=== PATIENT | female | born 1955 | race Caucasian/White ===

== ENCOUNTER → 2016-07-24 | Outpatient (CLI) | payer BC ==
[2016-07-24 12:18] LABS: ALT 40 U/L (9-52); AST 22 U/L (14-36); Alkaline Phosphatase 95 U/L (38-126); Anion Gap 12 mmol/L; Blood Urea Nitrogen 19 mg/dL (7-17); Calcium 9.6 mg/dL (8.4-10.2); Carbon Dioxide 26 mmol/L (22-30); Chloride 105 mmol/L (98-107); Glucose 110 mg/dL (74-99); Non-African American GFR(MDRD) >60 (>60 ml/min/1.73 sqM); Potassium 4.4 mmol/L (3.5-5.1); Sodium 143 mmol/L (137-145); Total Bilirubin 0.7 mg/dL (0.2-1.3); Total Protein 7.6 g/dL (6.3-8.2)
[2016-07-24 16:12] LABS: Hemoglobin A1C 5.6 % (4.2-6.1)
== END | disposition home or self-care (01) ==
LOC: LABWHC1 10:48
PROVIDERS: ATTEND Family Medicine
DX: E11.9 Type 2 diabetes mellitus without complications (principal); I10 Essential (primary) hypertension
CPT/HCPCS: 36415; 80053; 83036

== ENCOUNTER → 2016-11-10 | Outpatient (CLI) | payer BC ==
--- NOTE | 2016-11-10 14:37 | BD ---
EXAMINATION TYPE: MG DEXA axial skeleton. DATE OF EXAM: 11/10/2016 12:58 PM COMPARISON: DEXA bone scan May 11, 2013. CLINICAL HISTORY: Asymptomatic postmenopausal female Height: 5 ft 8 1/2 in Weight: 255 FRAX RISK QUESTIONS: Alcohol (3 or more units per day): NO Family History (Parent hip fracture): NOT KNOWN Glucocorticoids (More than 3mos): NO (Ex: prednisone, prednisolone, methylprednisolone, dexamethasone, and hydrocortisone). History of Fracture in Adulthood: NO Secondary Osteoporosis: 1. Type 1 Diabetes: NO 2. Hyperthyroidism: NO 3. Menopause before 45: NO 4. Malnutrition: NO 5. Chronic liver disease: NO Rheumatoid Arthritis: NO Current Tobacco Use: NO RISK FACTORS HISTORY OF: Family History of Osteoporosis: YES Drink Alcohol: RARELY Active: YES Postmenopausal woman: TOTAL HYST AGE 48 Lost more than 2 inches in height since high school: YES MEDICATIONS: Prednisone or other steroids: How Long: Thyroid Medications: Which medication: How Long: Osteoporosis Medications: Which medication: How Long: Additional Medications: LOSARTIN/HCTZ, PRILOSEC, MIRTAZAPINE,MONTELUKAST Additional History: EXAM MEASUREMENTS: Bone mineral densitometry was performed using the [email or web address] System. Bone mineral density as measured about the Lumbar spine is: ----- L1-L4(G/cm2): 1.149 T Score Values are as follows: ----- L2: -0.1 ----- L3: 0.0 ----- L4: -0.9 ----- L1-L4: -0.3 Bone mineral density has: Decreased -6.4% since study of: 2012 Bone mineral density about the R hip (g/cm2): 0.836 Bone mineral density about the L hip (g/cm2): 0.937 T Score values are as follows: -----R Neck: -0.7 -----L Neck: -1.5 -----R Total: -0.2 -----L Total: -0.1 Bone mineral density has: Decreased -3.0% since study of: 2012 IMPRESSION: Osteopenia (T Score between -2.5 and -1 as noted by T score values at femoral neck level on the left hip. Bone density is slightly decreased or diminished from prior.There is slightly increased risk of fracture and the patient may be considered for treatment. Re-Screen 2-5 years. NOTE: T-SCORE=SD OF THE YOUNG ADULT MEAN.
--- NOTE | 2016-11-12 08:46 | MM ---
Reason for exam: screening (asymptomatic). Last mammogram was performed 1 year and 6 months ago. History: Patient is postmenopausal. Excisional biopsy of the left breast, April 18, 2007. Took estrogen for 3 years beginning at age 43. Took progesterone for 3 years beginning at age 43. Physical Findings: A clinical breast exam by your physician is recommended on an annual basis and results should be correlated with mammographic findings. MG Screening Mammo w CAD Bilateral CC and MLO view(s) were taken. Prior study comparison: May 16, 2015, bilateral MG screening mammo w CAD. May 13, 2014, bilateral MG screening mammo w CAD. May 11, 2013, bilateral digital screening mammo w/CAD. May 09, 2012, bilateral digital screening mammo w/CAD. There are scattered fibroglandular densities. Stable grouped calcifications medial right breast. Increasing grouped calcifications central posterior left breast. ASSESSMENT: Incomplete: need additional imaging evaluation, BI-RAD 0 RECOMMENDATION: Special view mammogram of the left breast. [facility] will attempt to contact patient to return for supplemental views.
== END | disposition home or self-care (01) ==
LOC: RADMAMWWP 12:55
PROVIDERS: ATTEND Family Medicine
DX: Z12.31 Encounter for screening mammogram for malignant neoplasm of breast (principal); M85.852 Other specified disorders of bone density and structure, left thigh; Z78.0 Asymptomatic menopausal state
CPT/HCPCS: 77080; G0202

== ENCOUNTER → 2016-11-24 | Outpatient (CLI) | payer BC ==
--- NOTE | 2016-11-25 08:12 | MM ---
Reason for exam: additional evaluation requested from abnormal screening. Last mammogram was performed less than 1 month ago. History: Patient is postmenopausal. Excisional biopsy of the left breast, April 18, 2007. Took estrogen for 3 years beginning at age 43. Took progesterone for 3 years beginning at age 43. Physical Findings: Nurse did not find any significant physical abnormalities on exam. MG 3D Work Up W/Cad LT LM, CC with magnification, and LM with magnification view(s) were taken of the left breast. Prior study comparison: November 10, 2016, bilateral MG screening mammo w CAD. May 16, 2015, bilateral MG screening mammo w CAD. May 13, 2014, bilateral MG screening mammo w CAD. Finding: There are intermediate concern, suspicious grouped calcifications in the lower outer quadrant, middle position of the left breast, persists on additional views. These results were verbally communicated with the patient and result sheet given to the patient on 11/24/16. ASSESSMENT: Suspicious, BI-RAD 4 RECOMMENDATION: Stereotactic core biopsy of the left breast. Called Dr Damian with mammographic findings and has scheduled an appointment for the patient for 12/01/16 at 9:[address] Zacarias. PRELIMINARY REPORT CALLED AND FAXED TO DR. ZACARIAS ON 11/25/16 AT 300/TMP.
== END | disposition home or self-care (01) ==
LOC: RADMAMWWP 14:14
PROVIDERS: ATTEND Family Medicine
DX: R92.8 Other abnormal and inconclusive findings on diagnostic imaging of breast (principal)
CPT/HCPCS: G0206; G0279

== ENCOUNTER → 2016-12-09 | Day surgery (SDC) | payer BC ==
[2016-12-09 13:36] VITALS: RESP 12
[2016-12-09 14:38] VITALS: BP 132/82; PULSE 82; TEMP 98.9
--- NOTE | 2016-12-09 15:07 | MM ---
EXAMINATION TYPE: MG stereo VAD BX LT DATE OF EXAM: 12/09/2016 COMPARISON: NONE CLINICAL HISTORY: Left breast calcifications TECHNIQUE: Stereotactic guided core biopsy of left breast. FINDINGS: The procedure of stereotactic guided core biopsy was explained to the patient. Benefits, alternatives, and risks were discussed. An informed consent was then obtained. The shortness pathway for biopsy was chosen. Shortness pathway was chosen. Radiologist performed the localization and the procedure. A vacuum assisted biopsy gun was used to obtain multiple core samples. The patient tolerated the procedure well without any immediate complication. The patient was kept in the radiology department for short stay after the procedure and then discharged home in stable condition. Targeted calcifications are identified in specimen mammogram. Post biopsy mammogram shows the clip to appear in satisfactory position relative to the targeted area of concern on the preprocedure images. IMPRESSION: SUCCESSFUL, UNCOMPLICATED STEREOTACTIC GUIDED CORE BIOPSY OF AREA OF CONCERN IN THE left BREAST, FULL PATHOLOGY RESULTS TO FOLLOW. Pathology Results: High Risk BREAST, LEFT, STEREOTACTIC CORE BIOPSY: SMALL INTRADUCTAL PAPILLOMA AND DUCT ECTASIA. FIBROCYSTIC CHANGE (STROMAL FIBROSIS, CYST FORMATION, ADENOSIS AND DUCT HYPERPLASIA WITH CALCIFICATIONS). BENIGN SKIN. Recommendation Surgical consult of the left breast. JACOBYD
== END ==
LOC: RADMAMWWP 13:08
PROVIDERS: ATTEND Surgery
DX: D24.2 Benign neoplasm of left breast (principal); N60.42 Mammary duct ectasia of left breast; N60.32 Fibrosclerosis of left breast; N60.02 Solitary cyst of left breast; N60.22 Fibroadenosis of left breast; R92.8 Other abnormal and inconclusive findings on diagnostic imaging of breast; N60.92 Unspecified benign mammary dysplasia of left breast; N64.89 Other specified disorders of breast; Z88.1 Allergy status to other antibiotic agents; Z88.5 Allergy status to narcotic agent
CPT/HCPCS: 88305; 19081; A4648

== ENCOUNTER → 2017-02-19 | Outpatient (CLI) | payer BC ==
[2017-02-19 10:32] LABS: Basophils # (A) 0.1 k/uL (0-0.2); Basophils % (A) 1 %; CH 31.5; CHCM 34.5; Eosinophils # (A) 0.2 k/uL (0-0.7); Eosinophils % (A) 3 %; HCT 43.3 % (34.0-46.0); HDW 3.03; HGB 14.9 gm/dL (11.4-16.0); Luc # (Auto) 0.19; Luc % (Auto) 3; Lymphocytes # (A) 2.2 k/uL (1.0-4.8); Lymphocytes % (A) 31 %; MCH 31.6 pg (25.0-35.0); MCHC 34.5 g/dL (31.0-37.0); MCV 91.6 fL (80.0-100.0); Mean Platelet Volume 7.6; Monocytes # (A) 0.3 k/uL (0-1.0); Monocytes % (A) 4 %; Neutrophils # (A) 4.2 k/uL (1.3-7.7); Neutrophils % (A) 59 %; RBC 4.72 m/uL (3.80-5.40); RDW 13.9 % (11.5-15.5); WBC 7.1 k/uL (3.8-10.6); WBC (Perox) 7.01
[2017-02-19 10:43] LABS: ALT 34 U/L (9-52); AST 22 U/L (14-36); Alkaline Phosphatase 93 U/L (38-126); Anion Gap 9 mmol/L; Blood Urea Nitrogen 18 mg/dL (7-17); Calcium 9.5 mg/dL (8.4-10.2); Carbon Dioxide 26 mmol/L (22-30); Chloride 107 mmol/L (98-107); Cholesterol 181 mg/dL (<200); Glucose 115 mg/dL (74-99); HDL Cholesterol 57 mg/dL (40-60); Non-African American GFR(MDRD) >60 (>60 ml/min/1.73 sqM); Sodium 142 mmol/L (137-145); Total Bilirubin 0.5 mg/dL (0.2-1.3); Total Protein 7.1 g/dL (6.3-8.2)
[2017-02-19 14:26] LABS: Hemoglobin A1C 5.9 % (4.2-6.1)
[2017-02-19 17:21] LABS: Urine Creatinine 230.9 mg/dL
== END | disposition home or self-care (01) ==
LOC: LABWHC1 09:26
PROVIDERS: ATTEND Family Medicine
DX: Z00.00 Encounter for general adult medical examination without abnormal findings (principal); E11.9 Type 2 diabetes mellitus without complications; I10 Essential (primary) hypertension; Z13.220 Encounter for screening for lipoid disorders
CPT/HCPCS: 36415; 80053; 80061; 82043; 82570; 83036; 85025

== ENCOUNTER → 2017-03-23 | Outpatient (CLI) | payer BC ==
[2017-03-23 18:21] LABS: Blood Urea Nitrogen 16 mg/dL (7-17); Non-African American GFR(MDRD) >60 (>60 ml/min/1.73 sqM)
--- NOTE | 2017-03-23 19:28 | CT ---
EXAMINATION TYPE: CT abdomen pelvis w con DATE OF EXAM: 03/23/2017 COMPARISON: NONE HISTORY: Abdominal pain. CT DLP: 1556.6 mGycm Automated exposure control for dose reduction was used. TECHNIQUE: Helical acquisition of images was performed from the lung bases through the pelvis. CONTRAST: Performed with Oral Contrast and with IV Contrast, patient injected with 100 mL of Omnipaque 300. FINDINGS: Lung bases are clear. There is no pleural effusion. There are clips from cholecystectomy. Liver spleen pancreas appear normal. Bile ducts are not dilated . There is no adrenal mass. Kidneys show satisfactory contrast opacification. There is no hydronephrosi s. There is no retroperitoneal adenopathy. There is no ascites. Bladder distends smoothly. There is n o sign of a pelvic mass. I see no intestinal wall thickening. There are no dilated loops. Appendix ap pears normal. I see no bony destructive process. There is spurring in the lumbar spine. IMPRESSION: NEGATIVE CT SCAN OF THE ABDOMEN AND PELVIS. I DO NOT SEE A CAUSE FOR ABDOMINAL PAIN.
== END | disposition home or self-care (01) ==
LOC: RADCTMAIN 17:37
PROVIDERS: ATTEND Surgery
DX: R10.9 Unspecified abdominal pain (principal)
CPT/HCPCS: 82565; 84520; 74177; 36415; Q9967

== ENCOUNTER → 2017-08-27 | Outpatient (CLI) | payer BC ==
[2017-08-27 10:47] LABS: ALT 31 U/L (9-52); AST 23 U/L (14-36); Alkaline Phosphatase 93 U/L (38-126); Anion Gap 11 mmol/L; Blood Urea Nitrogen 20 mg/dL (7-17); Calcium 9.6 mg/dL (8.4-10.2); Carbon Dioxide 26 mmol/L (22-30); Chloride 106 mmol/L (98-107); Glucose 123 mg/dL (74-99); Potassium 4.3 mmol/L (3.5-5.1); Sodium 143 mmol/L (137-145); Total Bilirubin 0.4 mg/dL (0.2-1.3); Total Protein 6.9 g/dL (6.3-8.2)
[2017-08-27 20:07] LABS: Hemoglobin A1C 5.9 % (4.0-6.0)
== END | disposition home or self-care (01) ==
LOC: LABWHC1 09:31
PROVIDERS: ATTEND Family Medicine
DX: E11.9 Type 2 diabetes mellitus without complications (principal); I10 Essential (primary) hypertension
CPT/HCPCS: 36415; 80053; 83036

== ENCOUNTER → 2017-11-15 | Outpatient (CLI) | payer BC ==
--- NOTE | 2017-11-16 11:40 | MM ---
Reason for exam: screening (asymptomatic). Last mammogram was performed 1 year ago. History: Patient is postmenopausal and has history of high-risk lesion on a previous biopsy at age 61. High risk MG stereo VAD BX LT of the left breast, December 09, 2016. Excisional biopsy of the left breast, April 18, 2007. Took estrogen for 3 years beginning at age 43. Took progesterone for 3 years beginning at age 43. Physical Findings: A clinical breast exam by your physician is recommended on an annual basis and results should be correlated with mammographic findings. MG Screening Mammo w CAD Bilateral CC and MLO view(s) were taken. Prior study comparison: November 24, 2016, left breast MG 3d work up w/cad LT. November 10, 2016, bilateral MG screening mammo w CAD. The breast tissue is heterogeneously dense. This may lower the sensitivity of mammography. Stable benign calcifications. There is no discrete abnormality. No significant changes when compared with prior studies. ASSESSMENT: Benign, BI-RAD 2 RECOMMENDATION: Routine screening mammogram of both breasts in 1 year.
== END | disposition home or self-care (01) ==
LOC: RADMAMWWP 13:20
PROVIDERS: ATTEND Family Medicine
DX: Z12.31 Encounter for screening mammogram for malignant neoplasm of breast (principal)
CPT/HCPCS: 77067

== ENCOUNTER → 2018-02-25 | Outpatient (CLI) | payer BC ==
[2018-02-25 10:29] LABS: Basophils # (A) 0.1 k/uL (0-0.2); Basophils % (A) 1 %; Eosinophils # (A) 0.1 k/uL (0-0.7); Eosinophils % (A) 1 %; HCT 46.4 % (34.0-46.0); HGB 15.2 gm/dL (11.4-16.0); Lymphocytes # (A) 2.2 k/uL (1.0-4.8); Lymphocytes % (A) 29 %; MCH 30.9 pg (25.0-35.0); MCHC 32.7 g/dL (31.0-37.0); MCV 94.2 fL (80.0-100.0); Mean Platelet Volume 7.7; Monocytes # (A) 0.4 k/uL (0-1.0); Monocytes % (A) 5 %; Neutrophils # (A) 4.7 k/uL (1.3-7.7); Neutrophils % (A) 63 %; Platelet Count 201 k/uL (150-450); RBC 4.92 m/uL (3.80-5.40); RDW 14.1 % (11.5-15.5); WBC 7.4 k/uL (3.8-10.6)
[2018-02-25 10:35] LABS: Albumin 4.3 g/dL (3.5-5.0); Calcium 9.9 mg/dL (8.4-10.2); Potassium 4.5 mmol/L (3.5-5.1); Total Bilirubin 0.6 mg/dL (0.2-1.3); Total Protein 7.4 g/dL (6.3-8.2)
[2018-02-25 21:01] LABS: Hemoglobin A1C 5.8 % (4.0-6.0)
== END | disposition home or self-care (01) ==
LOC: LABWHC1 09:39
PROVIDERS: ATTEND Family Medicine
DX: I10 Essential (primary) hypertension (principal); E11.9 Type 2 diabetes mellitus without complications
CPT/HCPCS: 36415; 80053; 80061; 82043; 82570; 83036; 85025

== ENCOUNTER → 2018-06-13 | Outpatient (CLI) | payer BC ==
--- NOTE | 2018-06-13 14:34 | US ---
EXAMINATION TYPE: US venous doppler duplex LE DATE OF EXAM: 06/13/2018 2:05 PM COMPARISON: LOWER EXTREMITY VENOUS INSUFFICIENCY SIDE PERFORMED: Bilateral 1) Color flow is present and patency is documented in the following vessels. No DVT or SVT is noted . EIV Common Femoral Vein Deep Femoral Vein Femoral Vein Popliteal Vein Proximal Calf Veins Greater Saph Vein Upper Small Saph Vein 2) There is venous reflux noted at the following venous levels: None IMPRESSION: No sonographic evidence of deep venous thrombosis, superficial venous thrombosis or sonog raphic sequela of venous insufficiency.
== END | disposition home or self-care (01) ==
LOC: RADUSWWP 12:46
PROVIDERS: ATTEND Family Medicine
DX: I73.9 Peripheral vascular disease, unspecified (principal); I99.8 Other disorder of circulatory system
CPT/HCPCS: 93923; 93970

== ENCOUNTER → 2018-07-17 | Outpatient (CLI) | payer BC ==
--- NOTE | 2018-07-17 13:56 | XR ---
EXAM TYPE: LUMBAR SPINE X RAY SERIES COMPARISON: NONE HISTORY: Lt leg sciatica TECHNIQUE: 4 views are submitted. FINDINGS: Alignment is anatomic. The pedicles are intact. The transverse processes are intact. There is no s pondylolysis or spondylolisthesis. Surgical clips in the right upper quadrant. Diffuse osteopenia. H ypertrophic changes of the spine are noted and there is degenerative disc disease L4-5 and L5-S1 with facet arthropathy. Vascular calcifications are noted. No compression deformities. IMPRESSION: 1. Multilevel mild degenerative disc disease. Correlate with MRI as clinically warranted.
== END | disposition home or self-care (01) ==
LOC: RADXRYALE 13:29
PROVIDERS: ATTEND Family Medicine
DX: M51.36 Other intervertebral disc degeneration, lumbar region (principal); M51.37 Other intervertebral disc degeneration, lumbosacral region
CPT/HCPCS: 72110

== ENCOUNTER → 2018-08-30 | Outpatient (CLI) | payer BC ==
[2018-08-30 17:46] LABS: Albumin 4.6 g/dL (3.80-4.90); Albumin/Globulin Ratio 1.84 (1.60-3.17); Anion Gap 10.6 mmol/L (4.00-12.00); Calcium 9.9 mg/dL (8.7-10.3); Carbon Dioxide 26.4 mmol/L (21.6-31.8); Globulin 2.5 g/dL (1.6-3.3); LDL Cholesterol,Calculated 119.4 mg/dL (0.0-131.0); Potassium 4.4 mmol/L (3.5-5.5); Total Bilirubin 0.5 mg/dL (0.3-1.2); Total Protein 7.1 g/dL (6.2-8.2); VLDL Calculation 19.6 mg/dL (5.00-40.00)
[2018-08-30 20:25] LABS: Hemoglobin A1C 5.8 % (4.0-6.0)
== END ==
LOC: LABWHC1 10:30
PROVIDERS: ATTEND Family Medicine
DX: E11.9 Type 2 diabetes mellitus without complications (principal); I10 Essential (primary) hypertension
CPT/HCPCS: 36415; 80053; 80061; 83036

== ENCOUNTER → 2018-12-01 | Outpatient (CLI) | payer BC ==
--- NOTE | 2018-12-05 11:23 | MM ---
Reason for exam: screening (asymptomatic). Last mammogram was performed 1 year and 1 month ago. History: Patient is postmenopausal and has history of high-risk lesion on a previous biopsy at age 61. High risk MG stereo VAD BX LT of the left breast, December 09, 2016. Excisional biopsy of the left breast, April 18, 2007. Took estrogen for 3 years beginning at age 43. Took progesterone for 3 years beginning at age 43. Physical Findings: A clinical breast exam by your physician is recommended on an annual basis and results should be correlated with mammographic findings. MG Screening Mammo w CAD Bilateral CC and MLO view(s) were taken. Prior study comparison: November 15, 2017, bilateral MG screening mammo w CAD. November 24, 2016, left breast MG 3d work up w/cad LT. There are scattered fibroglandular densities. Nodularity adjacent to the 3 o'clock left breast microclip appears more defined but has an appearance similar to prior exams on the XCCL view. 6 month follow up recommended. ASSESSMENT: Probably benign, BI-RAD 3 RECOMMENDATION: Follow-up diagnostic mammogram of the left breast in 6 months.
== END | disposition home or self-care (01) ==
LOC: RADMAMWWP 13:47
PROVIDERS: ATTEND Family Medicine
DX: Z12.31 Encounter for screening mammogram for malignant neoplasm of breast (principal)
CPT/HCPCS: 77067

== ENCOUNTER → 2019-02-22 | Outpatient (CLI) | payer BC ==
[2019-02-22 12:19] LABS: Basophils # (A) 0.1 k/uL (0-0.2); Basophils % (A) 1 %; Eosinophils # (A) 0.1 k/uL (0-0.7); Eosinophils % (A) 2 %; HCT 45.4 % (34.0-46.0); HGB 15.1 gm/dL (11.4-16.0); Lymphocytes # (A) 1.9 k/uL (1.0-4.8); Lymphocytes % (A) 24 %; MCH 30.7 pg (25.0-35.0); MCHC 33.1 g/dL (31.0-37.0); MCV 92.7 fL (80.0-100.0); Mean Platelet Volume 8.5; Monocytes # (A) 0.4 k/uL (0-1.0); Monocytes % (A) 5 %; Neutrophils # (A) 5.2 k/uL (1.3-7.7); Neutrophils % (A) 67 %; Platelet Count 222 k/uL (150-450); RDW 13.9 % (11.5-15.5); WBC 7.7 k/uL (3.8-10.6)
[2019-02-22 17:07] LABS: African American GFR (CKD) 78.3 (60.0-200.0); Albumin 4.4 g/dL (3.80-4.90); Anion Gap 8.6 mmol/L (4.00-12.00); Calcium 9.6 mg/dL (8.7-10.3); Carbon Dioxide 25.4 mmol/L (21.6-31.8); Globulin 2.2 g/dL (1.6-3.3); Potassium 4.3 mmol/L (3.5-5.5); Total Bilirubin 0.5 mg/dL (0.3-1.2); Total Protein 6.6 g/dL (6.2-8.2)
[2019-02-22 20:39] LABS: Hemoglobin A1C 5.7 % (4.0-6.0)
== END | disposition home or self-care (01) ==
LOC: LABWHC1 10:30
PROVIDERS: ATTEND Family Medicine
DX: I10 Essential (primary) hypertension (principal); E11.9 Type 2 diabetes mellitus without complications
CPT/HCPCS: 36415; 80053; 82043; 82570; 83036; 85025

== ENCOUNTER 2019-05-17 13:06 | Emergency (ER) | payer BC ==
[2019-05-17 13:10] VITALS: TEMP 98.9
[2019-05-17] MEDS ORDERED: SODIUM CHLORIDE 0.9% 1,000 ML IV STA ×2 (13:43→16:07)
[2019-05-17] MEDS ORDERED: KETOROLAC 30 MG/ML 1 ML VIAL IVP STA (13:43)
[2019-05-17] MEDS ORDERED: ONDANSETRON 4 MG/2 ML VIAL IVP STA (13:43)
[2019-05-17 14:15] LABS: Basophils # (A) 0.1 k/uL (0-0.2); Basophils % (A) 1 %; Eosinophils # (A) 0.1 k/uL (0-0.7); Eosinophils % (A) 1 %; HCT 47.6 % (34.0-46.0); HGB 16.8 gm/dL (11.4-16.0); Lymphocytes # (A) 1.9 k/uL (1.0-4.8); Lymphocytes % (A) 17 %; MCH 32.3 pg (25.0-35.0); MCHC 35.3 g/dL (31.0-37.0); MCV 91.5 fL (80.0-100.0); Mean Platelet Volume 7.9; Monocytes # (A) 0.5 k/uL (0-1.0); Monocytes % (A) 5 %; Neutrophils # (A) 8.3 k/uL (1.3-7.7); Neutrophils % (A) 75 %; Platelet Count 222 k/uL (150-450); RDW 13.4 % (11.5-15.5); WBC 11.1 k/uL (3.8-10.6)
--- NOTE | 2019-05-17 14:17 | ED ---
General Adult HPI - General Chief complaint: Abdominal Pain Stated complaint: NVD, elevated blood sugar Time Seen by Provider: 05/17/19 13:19 Source: patient, RN notes reviewed Mode of arrival: ambulatory Limitations: no limitations - History of Present Illness Initial comments: 64-year-old female with a past medical history of asthma, [id number] diabetes mellitus, hypertension, cholecystectomy, hysterectomy presents to the emergency department for right abdominal pain. Patient has had this pain for the past 7 weeks that it worsened in the past 2 weeks. She did see her primary care provider but cannot have a CT scheduled until 2 days from now. States she cannot tolerate the pain any longer. States she has been nauseous but has not been vomiting. Admits to significant diarrhea for the past several weeks as well. Denies fevers but does admit to chills.Patient has no other complaints at this time including shortness of breath, chest pain, vomiting, headache, or visual changes. - Related Data Home Medications Medication Instructions Recorded Confirmed Losartan/Hydrochlorothiazide 1 tab PO QAM 09/11/15 12/09/16 [Losartan-Hctz 50-12.5 mg Tab] Mirtazapine 30 mg PO HS 09/11/15 12/09/16 RX: Montelukast [Singulair] 10 mg PO HS 09/11/15 12/09/16 Omeprazole [PriLOSEC] 1 tab PO DAILY PRN 12/06/16 12/09/16 Previous Rx's Medication Instructions Recorded Ciprofloxacin HCl [Cipro] 500 mg PO BID 28 Days #14 tab 05/17/19 Allergies Allergy/AdvReac Type Severity Reaction Status Date / Time adhesive Allergy ITCHING/RED Verified 05/17/19 13:08 DNESS cephalexin monohydrate Allergy Nausea & Verified 05/17/19 13:08 [From Keflex] Vomiting erythromycin base Allergy "I Verified 05/17/19 13:08 COULDN'T BREATHE" morphine Allergy Nausea & Verified 05/17/19 13:08 Vomiting nystatin Allergy Nausea & Verified 05/17/19 13:08 Vomiting sulfamethoxazole Allergy LIGHTHEADEDNESS, Verified 05/17/19 13:08 [From Septra] VOMITING trimethoprim [From Febra] Allergy LIGHTHEADEDNESS, Verified 05/17/19 13:08 VOMITING codeine AdvReac Nausea & Verified 11/21/19 13:08 Vomiting Review of Systems ROS Statement: Those systems with pertinent positive or pertinent negative responses have been documented in the HPI. ROS Other: All systems not noted in ROS Statement are negative. 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 History of Any Multi-Drug Resistant Organisms: None Reported Past Surgical History: Section, Cholecystectomy, Hernia Repair, Hysterectomy, Tonsillectomy Additional Past Surgical History / Comment(s): 7 EYE SX R/T TO MUSCLES, ELFEGO CATARACT Past Anesthesia/Blood Transfusion Reactions: No Reported Reaction Past Psychological History: Depression Smoking Status: Never smoker Past Alcohol Use History: Occasional Past Drug Use History: None Reported - Past Family History Mother Family Medical History: Unable to Obtain Additional Family Medical History / Comment(s): PATIENT ADOPTED General Exam Limitations: no limitations General appearance: alert, in no apparent distress Head exam: Present: atraumatic, normocephalic, normal inspection Eye exam: Present: normal appearance, PERRL, EOMI. Absent: scleral icterus, conjunctival injection, periorbital swelling ENT exam: Present: normal exam, mucous membranes moist Neck exam: Present: normal inspection, full ROM. Absent: tenderness, meningismus, lymphadenopathy Respiratory exam: Present: normal lung sounds bilaterally. Absent: respiratory distress, wheezes, rales, rhonchi, stridor Cardiovascular Exam: Present: regular rate, normal rhythm, normal heart sounds. Absent: systolic murmur, diastolic murmur, rubs, gallop, clicks GI/Abdominal exam: Present: soft, tenderness (Tenderness noted right lower quadrant. Right upper quadrant and epigastric tenderness as well.), normal bowel sounds. Absent: distended, guarding, rebound, rigid Neurological exam: Present: alert Course Vital Signs 05/17/19 05/17/19 13:08 14:35 Temperature 98.9 F Pulse Rate 113 H 88 Respiratory 18 18 Rate Blood Pressure 147/97 O2 Sat by Pulse 98 97 Oximetry Medical Decision Making - Medical Decision Making HPI physical exam as documented. Patient initially tachycardic but that was likely secondary to anxiety as this did improve her her stay. CBC shows mild with a ptosis of 11. CMP generally unremarkable. There is some evidence of dehydration. Patient does have a lactic acid of 2.1 however this is likely secondary to dehydration rather than severe sepsis. Urinalysis does show greater than 182 white blood cells with a positive nitrite. Patient was given 2 g of Rocephin and [address] abdomen and pelvis was obtained to rule out septic stone. This shows hepatic steatosis, splenomegaly, diverticulosis. Patient symptoms are likely secondary to pyelonephritis. Patient is requesting discharge home. I discussed this case with Dr. Levy and we do agree we can discharge patient on Cipro. She will follow up with primary care in 1-2 days and return here if she has any worsening symptoms. - Lab Data Result diagrams: 05/17/19 13:22 05/17/19 13:22 Lab Results 05/17/19 05/17/19 05/17/19 Range/Units 13: 13: 13:22 WBC 11.1 H (3.8-10.6) k/uL RBC 5.20 (3.80-5.40) m/uL Hgb 16.8 H (11.4-16.0) gm/dL Hct 47.6 H (34.0-46.0) % MCV 91.5 (80.0-100.0) fL MCH 32.3 (25.0-35.0) pg MCHC 35.3 (31.0-37.0) g/dL RDW 13.4 (11.5-15.5) % Plt Count 222 (150-450) k/uL Neutrophils % 75 % Lymphocytes % 17 % Monocytes % 5 % Eosinophils % 1 % Basophils % 1 % Neutrophils # 8.3 H (1.3-7.7) k/uL Lymphocytes # 1.9 (1.0-4.8) k/uL Monocytes # 0.5 (0-1.0) k/uL Eosinophils # 0.1 (0-0.7) k/uL Basophils # 0.1 (0-0.2) k/uL Sodium 141 (137-145) mmol/L Potassium 4.1 (3.5-5.1) mmol/L Chloride 103 (98-107) mmol/L Carbon Dioxide 23 (22-30) mmol/L Anion Gap 15 mmol/L BUN 20 H (7-17) mg/dL Creatinine 0.95 (0.52-1.04) mg/dL Est GFR (CKD-EPI)AfAm 74 (>60 ml/min/1.73 sqM) Est GFR (CKD-EPI)NonAf 64 (>60 ml/min/1.73 sqM) Glucose 136 H (74-99) mg/dL Plasma Lactic Acid Clarke 2.1 H* (0.7-2.0) mmol/L Calcium 10.2 (8.4-10.2) mg/dL Total Bilirubin 1.0 (0.2-1.3) mg/dL AST 37 H (14-36) U/L ALT 28 (9-52) U/L Alkaline Phosphatase 97 (38-126) U/L Total Protein 8.5 H (6.3-8.2) g/dL Albumin 4.9 (3.5-5.0) g/dL Amylase 33 (30-110) U/L Lipase 220 (23-300) U/L Urine Color Urine Appearance (Clear) Urine pH (5.0-8.0) Ur Specific Langley (1.001-1.035) Urine Protein (Negative) Urine Glucose (UA) (Negative) Urine Ketones (Negative) Urine Blood (Negative) Urine Nitrite (Negative) Urine Bilirubin (Negative) Urine Urobilinogen (<2.0) mg/dL Ur Leukocyte Esterase (Negative) Urine RBC (0-5) /hpf Urine WBC (0-5) /hpf Urine WBC Clumps (None) /hpf Ur Squamous Epith Cells (0-4) /hpf Urine Bacteria (None) /hpf Hyaline Casts (0-2) /lpf Urine Mucus (None) /hpf 05/17/ Range/Units 13:22 WBC (3.8-10.6) k/uL RBC (3.80-5.40) m/uL Hgb (11.4-16.0) gm/dL Hct (34.0-46.0) % MCV (80.0-100.0) fL MCH (25.0-35.0) pg MCHC (31.0-37.0) g/dL RDW (11.5-15.5) % Plt Count (150-450) k/uL Neutrophils % % Lymphocytes % % Monocytes % % Eosinophils % % Basophils % % Neutrophils # (1.3-7.7) k/uL Lymphocytes # (1.0-4.8) k/uL Monocytes # (0-1.0) k/uL Eosinophils # (0-0.7) k/uL Basophils # (0-0.2) k/uL Sodium (137-145) mmol/L Potassium (3.5-5.1) mmol/L Chloride (98-107) mmol/L Carbon Dioxide (22-30) mmol/L Anion Gap mmol/L BUN (7-17) mg/dL Creatinine (0.52-1.04) mg/dL Est GFR (CKD-EPI)AfAm (>60 ml/min/1.73 sqM) Est GFR (CKD-EPI)NonAf (>60 ml/min/1.73 sqM) Glucose (74-99) mg/dL Plasma Lactic Acid Clarke (0.7-2.0) mmol/L Calcium (8.4-10.2) mg/dL Total Bilirubin (0.2-1.3) mg/dL AST (14-36) U/L ALT (9-52) U/L Alkaline Phosphatase (38-126) U/L Total Protein (6.3-8.2) g/dL Albumin (3.5-5.0) g/dL Amylase (30-110) U/L Lipase (23-300) U/L Urine Color Yellow Urine Appearance Cloudy H (Clear) Urine pH 5.5 (5.0-8.0) Ur Specific L[place]y 1.026 (1.001-1.035) Urine Protein 2+ H (Negative) Urine Glucose (UA) Negative (Negative) Urine Ketones 1+ H (Negative) Urine Blood Small H (Negative) Urine Nitrite Positive H (Negative) Urine Bilirubin Negative (Negative) Urine Urobilinogen <2.0 (<2.0) mg/dL Ur Leukocyte Esterase Large H (Negative) Urine RBC 11 H (0-5) /hpf Urine WBC >182 H (0-5) /hpf Urine WBC Clumps Occasional H (None) /hpf Ur Squamous Epith Cells 26 H (0-4) /hpf Urine Bacteria Moderate H (None) /hpf Hyaline Casts 34 H (0-2) /lpf Urine Mucus Many H (None) /hpf Disposition Clinical Impression: Pyelonephritis Disposition: HOME SELF-CARE Condition: Good Instructions (If sedation given, give patient instructions): Kidney Infection (ED) Additional Instructions: Take antibiotic as directed Drink plenty of fluids. Follow up with primary care in 1-2 days. Return to the ER if you have any worsening symptoms. Prescriptions: Ciprofloxacin HCl [Cipro] 500 mg PO BID 28 Days #14 tab Is patient prescribed a controlled substance at d/c from ED?: No Referrals: Jose Damian MD [Primary Care Provider] - 1-2 days Time of Disposition: 16:55
[2019-05-17 14:20] LABS: Albumin 4.9 g/dL (3.5-5.0); Calcium 10.2 mg/dL (8.4-10.2); Total Protein 8.5 g/dL (6.3-8.2)
[2019-05-17 14:23] LABS: Potassium 4.1 mmol/L (3.5-5.1)
[2019-05-17 14:26] LABS: Appearance,Urine Cloudy (Clear); Bacteria,Urine Moderate /hpf; Bilirubin,Urine Negative (Negative); Blood,Urine Small (Negative); Color,Urine Yellow; Glucose,Urine (UA) Negative (Negative); Hyaline Casts,Urine 34 /lpf (0-2); Ketones,Urine 1+ (Negative); Leukocyte Esterase,Urine Large (Negative); Mucus,Urine Many /hpf; Nitrite,Urine Positive (Negative); PH, Urine 5.5 (5.0-8.0); Protein,Urine 2+ (Negative); RBC,Urine 11 /hpf (0-5); Specific Gravity,Urine 1.026 (1.001-1.035); Squamous Epithelial Cell,Urine 26 /hpf (0-4); Urobilinogen,Urine <2.0 mg/dL (<2.0)
[2019-05-17] MEDS ORDERED: cefTRIAXone IN SWFI 1,000 MG/10 ML SYRINGE IVP STA ×2 (14:51→16:07)
--- NOTE | 2019-05-17 16:04 | CT ---
EXAMINATION TYPE: CT abdomen pelvis w con DATE OF EXAM: 05/17/2019 COMPARISON: Prior CT 03/23/2017 HISTORY: Right sided abdominal pain with NVD for 6-[address] DLP: 1498.3 mGycm Automated exposure control for dose reduction was used. TECHNIQUE: Helical acquisition of images from the lung bases through the pelvis have been completed. CONTRAST: Performed without Oral Contrast and with IV Contrast, patient injected with 100 mL of Isovue 300. FINDINGS: Stable anterior abdominal wall subcutaneous fat soft tissue nodule may represent granuloma on axial image 43. There is a small hiatal hernia present. Small umbilical hernia contains fat. LUNG BASES: No significant abnormality is appreciated. AORTA: No significant abnormality is appreciated. LIVER/GB: Patient is post cholecystectomy. Liver shows a stable appearance, low attenuation possibly due to hepatic steatosis. PANCREAS: No significant abnormality is seen. SPLEEN: Enlarged as on prior ADRENALS: No significant abnormality is seen. KIDNEYS: No significant abnormality is seen. REPRODUCTIVE ORGANS: Uterus and adnexal structures are not seen. BOWEL: Diverticular change associated with the sigmoid colon. The appendix is normal. FREE AIR: No Free Air visible. ASCITES: None visible. PELVIC ADENOPATHY: None visualized. RETROPERITONEAL ADENOPATHY: No Retroperitoneal Adenopathy visible. URINARY BLADDER: No significant abnormality is seen. OSSEOUS STRUCTURES: Flowing anterior osteophytes along the lower thoracic spine may be indicative of diffuse idiopathic skeletal hyperostosis. Some loss of disc height L5-S1 suggestive of degenerative disc disease.. IMPRESSION: HEPATIC STEATOSIS SUSPECTED. SPLENOMEGALY IS STABLE. DIVERTICULOSIS. POSTOP CHANGES.
[2019-05-17 17:38] VITALS: BP 140/80; PULSE 80; RESP 16
== END 2019-05-17 17:17 | disposition home or self-care (01) ==
LOC: EC 13:06
DX: N12 Tubulo-interstitial nephritis, not specified as acute or chronic (principal); R00.0 Tachycardia, unspecified; E86.0 Dehydration; K76.0 Fatty (change of) liver, not elsewhere classified; R16.1 Splenomegaly, not elsewhere classified; K57.90 Diverticulosis of intestine, part unspecified, without perforation or abscess without bleeding; R19.7 Diarrhea, unspecified; J45.909 Unspecified asthma, uncomplicated; I10 Essential (primary) hypertension; F32.9 Major depressive disorder, single episode, unspecified; Z88.1 Allergy status to other antibiotic agents; Z88.2 Allergy status to sulfonamides; Z88.5 Allergy status to narcotic agent; Z91.048 Other nonmedicinal substance allergy status; Z79.899 Other long term (current) drug therapy; Z90.49 Acquired absence of other specified parts of digestive tract; Z90.710 Acquired absence of both cervix and uterus
CPT/HCPCS: 36415; 80053; 82150; 83605; 83690; 85025; 81001; 87040; 87086; 87077; 87186; 74177; 99284; 96374; 96375 ×2; 96376; 96361 ×2; J2405; J0696; J1885; Q9967

== ENCOUNTER → 2019-08-03 | Outpatient (CLI) | payer BC ==
--- NOTE | 2019-08-06 12:09 | MM ---
Reason for exam: follow-up at short interval from prior study. Last mammogram was performed 8 months ago. History: Patient is postmenopausal and has history of high-risk lesion on a previous biopsy at age 61. High risk MG stereo VAD BX LT of the left breast, December 09, 2016. Excisional biopsy of the left breast, April 18, 2007. Took estrogen for 3 years beginning at age 43. Took progesterone for 3 years beginning at age 43. Physical Findings: Nurse did not find any significant physical abnormalities on exam. MG 3D Diag Mammo W/Cad LT CC and MLO view(s) were taken of the left breast. Prior study comparison: December 01, 2018, bilateral MG screening mammo w CAD. November 15, 2017, bilateral MG screening mammo w CAD. The breast tissue is heterogeneously dense. This may lower the sensitivity of mammography. No significant new findings when compared with previous films. These results were verbally communicated with the patient and result sheet given to the patient on 08/03/19. ASSESSMENT: Benign, BI-RAD 2 RECOMMENDATION: Routine screening mammogram of both breasts in 1 year. Manage patient on a clinical basis. Patient was high risk lesion, no subsequent open biopsy, consider surgical consult.
== END | disposition home or self-care (01) ==
LOC: RADMAMWWP 12:49
PROVIDERS: ATTEND Family Medicine
DX: R92.8 Other abnormal and inconclusive findings on diagnostic imaging of breast (principal)
CPT/HCPCS: 77061; 77065

== ENCOUNTER → 2019-08-29 | Outpatient (CLI) | payer BC ==
[2019-08-29 14:24] VITALS: BP 127/84; PULSE 103; RESP 18; TEMP 98.8
--- NOTE | 2019-08-29 15:13 | P.GSHP ---
History of Present Illness H&P Date: 08/29/19 Chief Complaint: breast exam Floresita is a 64 -year-old white female who in 2017 history retracted core biopsy of the left breast which revealed a small intraductal papilloma. She did not have excision of the lesion and has been followed conservatively. She has been followed radiographically since that time. In 2018 she had a bilateral mammogram and nodularity was noted adjacent to the 3:00 left breast microclip which appeared more defined. Six-month follow-up was recommended. Six-month follow-up was performed in July 2019 at this time the breast tissue is heterogeneously dense and no discrete lesion was noted. However, the recommendation was for the patient to be evaluated by a surgeon secondary to the fact that an intraductal papilloma had been identified in 2019 and no resection had been performed. The patient does not feel anything of concern in her breast. The patient is not having any nipple discharge of concern. The area of core biopsy was approximately 3 o'clock position of the left breast. The patient since 2018 has been complaining of pain in the left breast at the 6 o'clock position. The pain occurs every several months and last for several weeks when it occurs. It was described as aching in nature. It is 4 on a scale of 1-10 with 10 being the worst. It does not radiate anyplace. The patient states that she does not have any pain like that in the right breast. She has not had any trauma or infection in the breast. She is not having pain at the present time. Caffeine: none smoke: none Theophylline: Several times a month/patient is diabetic Hormone: none Milked: Patient drinks several glasses a day no hormones or supplements Family History: adopted does not know family history Hormonal History: menarche: 12 , 1 , age at first : 25, breast fed: no Menopause: hysterectomy at 49 for fibroids took ovaries BCP: 4 years hormones: after hysterectomy for two years Surgical History: 1. Hysterectomy with bilateral salpingo-oophorectomy 2. Cholecystectomy 3. Right groin hernia 4. 5 eye surgeries 6. Tonsillectomy 7. two C sections 8. right parotid resection Medical History: 1. diabetic diet controlled 2. UTI's 3. asthma Social History: smoke: none alcohol: rare drugs: none - Constitutional Constitutional: Denies chills, Denies fever - EENT Eyes: denies blurred vision, denies pain Ears: left: tinnitus, deny: decreased hearing Ears, nose, mouth and throat: Denies headache, Denies sore throat - Breasts Breasts: bilateral: as per HPI - Cardiovascular Cardiovascular: Reports high blood pressure, Denies chest pain, Denies shortness of breath - Respiratory Respiratory: Denies cough, Denies 7 - Gastrointestinal Comment: PUD Gastrointestinal: Denies abdominal pain, Denies diarrhea, Denies nausea, Denies vomiting - Genitourinary (Female) Comment: frequant UTI - Menstruation Menstruation: Reports post hysterectomy - Musculoskeletal Comment: arthritis Musculoskeletal: Denies myalgias - Integumentary Integumentary: Denies pruritus, Denies rash - Neurological Neurological: Denies numbness, Denies weakness - Psychiatric Psychiatric: Reports depression, Denies anxiety - Endocrine Comment: diabetes - Hematologic/Lymphatic Comment: none - Allergic/Immunologic Allergic/Immunologic: Reports as per HPI, Reports seasonal allergies 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 History of Any Multi-Drug Resistant Organisms: None Reported Past Surgical History: Section, Cholecystectomy, Hernia Repair, Hysterectomy, Tonsillectomy Additional Past Surgical History / Comment(s): 7 EYE SX R/T TO MUSCLES, ELFEGO CATARACT Past Anesthesia/Blood Transfusion Reactions: No Reported Reaction Past Psychological History: Depression Smoking Status: Never smoker Past Alcohol Use History: Occasional Past Drug Use History: None Reported - Past Family History Mother Family Medical History: Unable to Obtain Additional Family Medical History / Comment(s): PATIENT ADOPTED Medications and Allergies Home Medications Medication Instructions Recorded Confirmed Type Losartan/Hydrochlorothiazide 1 tab PO QAM 09/11/15 08/29/19 History [Losartan-Hctz 50-12.5 mg Tab] Mirtazapine 30 mg PO HS 09/11/15 08/29/19 History Omeprazole [PriLOSEC] 1 tab PO DAILY PRN 12/06/16 08/29/19 History Ciprofloxacin HCl [Cipro] 500 mg PO BID 28 Days #14 tab 05/17/19 08/29/19 Rx Allergies Allergy/AdvReac Type Severity Reaction Status Date / Time adhesive Allergy ITCHING/RED Verified 08/29/19 14:18 DNESS cephalexin monohydrate Allergy Nausea & Verified 08/29/19 14:18 [From Keflex] Vomiting erythromycin base Allergy "I Verified 08/29/19 14:18 COULDN'T BREATHE" morphine Allergy Nausea & Verified 08/29/19 14:18 Vomiting nystatin Allergy Nausea & Verified 08/29/19 14:18 Vomiting sulfamethoxazole Allergy LIGHTHEADEDNESS, Verified 08/29/19 14:18 [From Septra] VOMITING trimethoprim [From Septra] Allergy LIGHTHEADEDNESS, Verified 08/29/19 14:18 VOMITING codeine AdvReac Nausea & Verified 08/29/19 14:18 Vomiting Surgical - Exam Vital Signs Temp Pulse Resp BP Pulse Ox 98.8 F 103 H 18 127/84 95 08/29/19 14:19 08/29/19 14:19 08/29/19 14:19 08/29/19 14:19 08/29/19 14:19 BMI 35.7 - General obese - Eyes normal ocular movement - Neck no masses, trachea midline - Respiratory normal expansion, normal respiratory effort, clear to auscultation - Cardiovascular Rhythm: regular Heart Sounds: normal: S1, S2 - Abdomen Abdomen: soft, non tender, no guarding, no rigid, no rebound - Integumentary normal turgor no rash, no abnormal pigmentation - Neurologic no disoriented, no combative - Musculoskeletal normal gait, normal posture - Psychiatric oriented to time, oriented to person, oriented to place, speech is normal, memory intact breast exam: BRA ? size, B cup ptosis grade 3 Inspection: No nipple inversion, no skin lesions of concern Palpation: Right breast: Multi-positional exam fibrocystic changes, no dominant masses or nodules of concern Right axilla: No adenopathy of concern Left breast: Multi-positional exam fibrocystic changes, 3 o'clock position slight increased nodularity, 6 o'clock position were patient has pain no discrete masses or nodules of concern Left axilla: No adenopathy of concern Results Patient's mammograms from 2016/ 2017 /2018 and 2019 are reviewed appears that the patient underwent a stereo biopsy in 2017 for area of microcalcifications. Most likely an incidental papilloma was identified and at that time was being watched conservatively. In 2018 nodularity adjacent to the clip was noted and this has since resolved. At this time after review with the radiologist is recommended patient have an ultrasound of this area. If this is benign we will continue to watch her conservatively and she is due for bilateral mammogram in November 2019. Assessment and Plan Assessment: impression: 1. Patient stereo biopsy in 2017 intraductal papilloma of the left breast was followed conservatively without biopsy 2. Fibrocystic breast changes 3. Mastodynia 6 o'clock position left breast intermittent most likely related to fibrocystic changes 4. Mild increased nodularity 3 o'clock position of the left breast no discrete dominant mass noted 5. History of diabetes Plan: 1. Ultrasound of left breast at 3 o'clock position, than follow up 2. If ultrasound is benign repeat bilateral mammogram in November 2019 with physician exam at that time 3. Medical management of medical conditions Cc: Dr. Damina encounter 30 minutes, > 50% of time spent in planning and counselling Time with Patient: Greater than 30
== END | disposition home or self-care (01) ==
LOC: WWCWWP 13:45
PROVIDERS: ATTEND Surgery
DX: Z53.9 Procedure and treatment not carried out, unspecified reason (principal)

== ENCOUNTER → 2020-01-14 | Outpatient (CLI) | payer BC ==
--- NOTE | 2020-01-15 13:08 | USB ---
Reason for exam: additional evaluation requested from prior study. History: Patient is postmenopausal and has history of high-risk lesion on a previous biopsy at age 61. High risk MG stereo VAD BX LT of the left breast, December 09, 2016. Excisional biopsy of the left breast, April 18, 2007. Took estrogen for 3 years beginning at age 43. Took progesterone for 3 years beginning at age 43. Physical Findings: Nurse did not find any significant physical abnormalities on exam. US Breast LT Technologist: Zeny Hendricks Left complete breast ultrasound includes all four quadrants, the retroareolar region and axilla. Finding demonstrates a 0.3 x 0.3 x 0.3cm circular lesion too small to characterize versus cyst at 2 o'clock. No cystic or solid lesion seen. These results were verbally communicated with the patient and result sheet given to the patient on 01/14/20. ASSESSMENT: Probably benign, BI-RAD 3 RECOMMENDATION: Ultrasound of the left breast in 6 months.
--- NOTE | 2020-01-15 13:11 | MM ---
Reason for exam: additional evaluation requested from prior study. Last mammogram was performed 5 months ago. History: Patient is postmenopausal and has history of high-risk lesion on a previous biopsy at age 61. High risk MG stereo VAD BX LT of the left breast, December 09, 2016. Excisional biopsy of the left breast, April 18, 2007. Took estrogen for 3 years beginning at age 43. Took progesterone for 3 years beginning at age 43. MG 3D Diag Mammo W/Cad ELFEGO Bilateral CC and MLO view(s) were taken. Prior study comparison: August 03, 2019, left breast MG 3d diag mammo w/cad LT. December 01, 2018, bilateral MG screening mammo w CAD. The breast tissue is heterogeneously dense. This may lower the sensitivity of mammography. Previous mammotome biopsy in the left breast. Stable regional and grouped calcifications on the left. Stable small central grouped calcifications on the right. Some fluctuating circumscribed nodularity on the right in an overall benign appearance. These results were verbally communicated with the patient and result sheet given to the patient on 01/14/20. ASSESSMENT: Probably benign, BI-RAD 3 RECOMMENDATION: Follow-up diagnostic mammogram of the right breast in 6 months.
== END | disposition home or self-care (01) ==
LOC: RADUSWWP 14:07
PROVIDERS: ATTEND Surgery
DX: R92.8 Other abnormal and inconclusive findings on diagnostic imaging of breast (principal)
CPT/HCPCS: 77062; 77066

== ENCOUNTER → 2020-01-25 | Outpatient (CLI) | payer BC ==
--- NOTE | 2020-01-25 14:40 | P.PN ---
Subjective Progress Note Date: 01/25/20 Principal diagnosis: fibrocystic breast changes Floresita is a 64 -year-old white female who in 2017 had a core biopsy of the left breast which revealed a small intraductal papilloma. She did not have excision of the lesion and has been followed conservatively. She has been followed radiographically since that time. On 12-01-18 she had a bilateral mammogram and nodularity was noted adjacent to the 3:00 left breast microclip which appeared more defined. Six-month follow-up was recommended. Six-month follow-up was performed in July 2019 at that time the breast tissue was noted to be heterogeneously dense and no discrete lesion was noted. However, the recommendation was for the patient to be evaluated by a surgeon secondary to the fact that an intraductal papilloma had been identified in 2018 and no resection had been performed. She was seen here at that time and recommendation was for conservative follow-up. The patient did not feel anything of concern in her breast. The patient was not having any nipple discharge of concern. The area of core biopsy was approximately 3 o'clock position of the left breast. Her most recent mammogram was bilateral and [id number] this was considered a BIRADS 3 and this time repeat right breast mammogram in 6 months is recommended. The left side appears to be stable on mammogram. However She had an ultrasound of the left breast performed on the same day and repeat ultrasound of the left breast in 6 months is recommended. It revealed a 0.3 x 0.3 circular lesion at 2:00. Recommend patient have a right breast mammogram in 6 months secondary to some microcalcifications that were seen. Therefore the ra diographic evaluation at this time was for repeat left breast ultrasound and repeat right breast mammogram in 6 months. At this time the patient is not complaining of any lumps masses or nodules in her breast. She is not complaining of any pain nipple discharge or skin changes for which she is concerned. Her most recent mammogram was a bilateral mammogram on 01-14-20 which was a BIRADS 3 and repeat right breast mammogram in 6 months recommended. She also had a left breast ultrasound on the same date and repeat left breast ultrasound in 6 months is recommended. Caffeine: none smoke: none Theophylline: Several times a month/patient is diabetic Hormone: none Milked: Patient drinks several glasses a day no hormones or supplements Family History: adopted does not know family history Hormonal History: menarche: 12 , 1 , age at first : 25, breast fed: no Menopause: hysterectomy at 49 for fibroids took ovaries BCP: 4 years hormones: after hysterectomy for two years Surgical History: 1. Hysterectomy with bilateral salpingo-oophorectomy 2. Cholecystectomy 3. Right groin hernia 4. 5 eye surgeries 6. Tonsillectomy 7. two C sections 8. right parotid resection Medical History: 1. diabetic diet controlled 2. UTI's 3. asthma Social History: smoke: none alcohol: rare drugs: none - Constitutional Constitutional: Denies chills, Denies fever - EENT Eyes: denies blurred vision, denies pain Ears: left: tinnitus, deny: decreased hearing Ears, nose, mouth and throat: Denies headache, Denies sore throat - Breasts Breasts: bilateral: as per HPI - Cardiovascular Cardiovascular: Reports high blood pressure, Denies chest pain, Denies shortness of breath - Respiratory Respiratory: Denies cough, asthma - Gastrointestinal Comment: PUD Gastrointestinal: Denies abdominal pain, Denies diarrhea, Denies nausea, Denies vomiting - Genitourinary (Female) Comment: frequant UTI - Menstruation Menstruation: Reports post hysterectomy - Musculoskeletal Comment: arthritis Musculoskeletal: Denies myalgias - Integumentary Integumentary: Denies pruritus, Denies rash - Neurological Neurological: Denies numbness, Denies weakness - Psychiatric Psychiatric: Reports depression, Denies anxiety - Endocrine Comment: diabetes - Hematologic/Lymphatic Comment: none - Allergic/Immunologic Allergic/Immunologic: Reports as per HPI, Reports seasonal allergies Objective - Constitutional General appearance: Present: cooperative - EENT Eyes: Present: EOMI ENT: Present: hearing grossly normal - Neck Neck: Present: normal ROM - Respiratory Respiratory: bilateral: CTA - Cardiovascular Rhythm: regular Heart sounds: normal: S1, S2 - Gastrointestinal General gastrointestinal: Present: normal bowel sounds, soft - Integumentary Integumentary: Present: normal turgor - Musculoskeletal Musculoskeletal: Present: gait normal - Psychiatric Psychiatric: Present: A&O x's 3, appropriate affect, intact judgment & insight - Additional findings Additional findings: Breast exam: BRA: 50B inspection: right breast slightly larger than left breast grade 2 ptosis bilateral palpation: right breast: Multiple positional exam no dominant masses or nodules of concern fibrocystic changes Right axilla: No adenopathy of concern Left breast: Multi-positional exam no dominant masses or nodules of concern, fibrocystic changes Left axilla: No adenopathy of concern Assessment and Plan Assessment: Impression: 1. Fibrocystic breast changes 2. Radiographic abnormalities as noted 3. Nothing to warrant biopsy at this time 4. Diet-controlled diabetes 5. Asthma Plan: 1. Right breast mammogram in 6 months 2. Left breast ultrasound in 6 months 3. Follow-up examination in 6 months 4. Medical management of medical conditions CC: DR. Damian encounter 30 minutes, > 50% of time in planning and counselling
[2020-01-25 14:46] VITALS: BP 131/83; PULSE 106; RESP 18; TEMP 98.6
== END | disposition home or self-care (01) ==
LOC: WWCWWP 14:15
PROVIDERS: ATTEND Surgery
DX: Z53.9 Procedure and treatment not carried out, unspecified reason (principal)

== ENCOUNTER 2020-02-16 12:58 | Emergency (ER) | payer BC, MEDICARE ==
[2020-02-16 13:07] VITALS: TEMP 98.2
[2020-02-16] MEDS ORDERED: SODIUM CHLORIDE 0.9% 1,000 ML IV STA (13:28)
[2020-02-16] MEDS ORDERED: KETOROLAC 15 MG/ML 1 ML VIAL IVP STA (13:28)
[2020-02-16] MEDS ORDERED: ONDANSETRON 4 MG/2 ML VIAL IVP STA (13:28)
--- NOTE | 2020-02-16 13:36 | ED ---
Abdominal Pain HPI - General Chief Complaint: Abdominal Pain Stated Complaint: Poss Kidney Infection Time Seen by Provider: 02/16/20 13:10 Source: patient Mode of arrival: ambulatory Limitations: no limitations - History of Present Illness Initial Comments: Patient is a 65-year-old female, with history of asthma, diabetes, hypertension, presenting to the emergency Department with concerns of a kidney infection. Patient states she has had 4 since Apr. Patient states her last one was about a month and a half ago, treated with Cipro but she does not feel like it has completely cleared up. She's been having ongoing abdominal pain, nausea as well as dysuria and frequency. Yesterday she was extremely nauseous and felt like she might faint. She is not been able to eat very much last few days and has only had a few sips of water today. Patient states she does have an appointment with the urologist, Dr. Butler and 2 weeks however she feels like she cannot wait. She denies any fevers at home but states she has been sweating and having chills. She denies any diarrhea except, chest pain, shortness of breath. She states she does have a history of kidney stones but this does not feel like a stone. He eats her pain in the side of her abdomen feel the same as when she has had kidney infection in the past. She is no further complaints at this time. Upon arrival to the ER, patient was slightly tachycardia at 109, rest of vitals are normal. - Related Data Home Medications Medication Instructions Recorded Confirmed Mirtazapine 30 mg PO HS 09/11/15 02/16/20 Omeprazole [PriLOSEC] 1 tab PO DAILY PRN 12/06/16 02/16/20 Losartan [Cozaar] 50 mg PO QAM 01/25/20 02/16/20 hydroCHLOROthiazide 50 mg PO DAILY 01/25/20 02/16/20 Previous Rx's Medication Instructions Recorded Levofloxacin [Levaquin] 750 mg PO DAILY 5 Days #5 tab 02/16/20 Allergies Allergy/AdvReac Type Severity Reaction Status Date / Time adhesive Allergy ITCHING/RED Verified 02/16/20 14:40 DNESS cephalexin monohydrate Allergy Nausea & Verified 02/16/20 14:40 [From Keflex] Vomiting erythromycin base Allergy "I Verified 02/16/20 14:40 COULDN'T BREATHE" morphine Allergy Nausea & Verified 02/16/20 14:40 Vomiting nystatin Allergy Nausea & Verified 02/16/20 14:40 Vomiting sulfamethoxazole Allergy LIGHTHEADEDNESS, Verified 02/16/20 14:40 [From Septra] VOMITING trimethoprim [From Febra] Allergy LIGHTHEADEDNESS, Verified 02/16/20 14:40 VOMITING codeine AdvReac Nausea & Verified 02/16/20 14:40 Vomiting Review of Systems ROS Statement: Those systems with pertinent positive or pertinent negative responses have been documented in the HPI. ROS Other: All systems not noted in ROS Statement are negative. 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 History of Any Multi-Drug Resistant Organisms: None Reported Past Surgical History: Section, Cholecystectomy, Hernia Repair, Hysterectomy, Tonsillectomy Additional Past Surgical History / Comment(s): 7 EYE SX R/T TO MUSCLES, ELFEGO CATARACT Past Anesthesia/Blood Transfusion Reactions: No Reported Reaction Past Psychological History: Depression Smoking Status: Never smoker Past Alcohol Use History: Occasional Past Drug Use History: None Reported - Past Family History Mother Family Medical History: Unable to Obtain Additional Family Medical History / Comment(s): PATIENT ADOPTED General Exam - General Exam Comments Initial Comments: GENERAL: Patient is well-developed and well-nourished. patient is slightly diaphoretic, and mild distress. HEAD: Atraumatic, normocephalic. EYES: Pupils equal round and reactive to light, extraocular movements intact, sclera anicteric, conjunctiva are normal. Eyelids were unremarkable. ENT: TMs normal, nares patent, oropharynx clear without exudates. Moist mucous membranes. NECK: Normal range of motion, supple without lymphadenopathy or JVD. LUNGS: Unlabored respirations. Breath sounds clear to auscultation bilaterally and equal. No wheezes rales or rhonchi. HEART: Regular rate and rhythm without murmurs, rubs or gallops. ABDOMEN: generalized abdominal tenderness with palpation, no specific area pain. mild right CVA tenderness. Soft, normoactive bowel sounds. No guarding, no rebound. No masses appreciated. : Deferred MUSCULOSKELETAL: Normal extremities with adequate strength and normal range of motion, no pitting or edema. No clubbing or cyanosis. NEUROLOGICAL: Patient is alert and oriented x 3. Motor and sensory are also intact. Cranial nerves II through XII grossly intact. Symmetrical smile. Normal speech, normal gait. PSYCH: Normal mood, normal affect. SKIN: Warm, Dry, normal turgor, no rashes or lesions noted. Limitations: no limitations Course Vital Signs 02/16/20 02/16/20 13:05 14:05 Temperature 98.2 F Pulse Rate 109 H 88 Respiratory 18 18 Rate Blood Pressure 139/104 141/87 O2 Sat by Pulse 97 97 Oximetry Medical Decision Making - Medical Decision Making patient states he 5-year-old female here with concerns of a kidney infection. She's had multiple infections in the last few months. She does have an appointment with Dr. Butler in 2 weeks however she's been having abdominal pain, nausea, vomiting, low appetite for the past few weeks that is worsening. Her vital signs are stable she is afebrile. Patient does have a small white count of 13.6, lactic acid is elevated at 2.2, urine does shows no skin amount of WBCs, large amount of leukocyte Estrace. Patient was given some fluids as well as Tylenol. She does report significant improvement in her symptoms. She is comfortable going home. I will start patient on Levaquin secondary to multiple drug ALLERGIES and patient not wanting to retry Cipro. I will give the first dose today. She will follow up with her PCP. She is in agreement with this plan of care. Return parameters were discussed with the patient she verbalized understanding. Case discussed with Dr. Garcia. - Lab Data Result diagrams: 02/16/20 13:36 02/16/20 13:36 Lab Results 02/16/20 02/16/20 02/16/20 Range/Units 13:36 13:36 13:36 WBC 13.0 H (3.8-10.6) k/uL RBC 5.19 (3.80-5.40) m/uL Hgb 16.3 H (11.4-16.0) gm/dL Hct 46.3 H (34.0-46.0) % MCV 89.3 (80.0-100.0) fL MCH 31.4 (25.0-35.0) pg MCHC 35.2 (31.0-37.0) g/dL RDW 13.3 (11.5-15.5) % Plt Count 240 (150-450) k/uL Neutrophils % 80 % Lymphocytes % 13 % Monocytes % 4 % Eosinophils % 1 % Basophils % 1 % Neutrophils # 10.4 H (1.3-7.7) k/uL Lymphocytes # 1.7 (1.0-4.8) k/uL Monocytes # 0.5 (0-1.0) k/uL Eosinophils # 0.1 (0-0.7) k/uL Basophils # 0.1 (0-0.2) k/uL Sodium 136 L (137-145) mmol/L Potassium 3.6 (3.5-5.1) mmol/L Chloride 97 L (98-107) mmol/L Carbon Dioxide 26 (22-30) mmol/L Anion Gap 13 mmol/L BUN 19 H (7-17) mg/dL Creatinine 0.80 (0.52-1.04) mg/dL Est GFR (CKD-EPI)AfAm 90 (>60 ml/min/1.73 sqM) Est GFR (CKD-EPI)NonAf 78 (>60 ml/min/1.73 sqM) Glucose 166 H (74-99) mg/dL Plasma Lactic Acid Clarke 2.2 H* (0.7-2.0) mmol/L Calcium 10.0 (8.4-10.2) mg/dL Total Bilirubin 1.1 (0.2-1.3) mg/dL AST 40 H (14-36) U/L ALT 28 (4-34) U/L Alkaline Phosphatase 103 (38-126) U/L Total Protein 8.3 H (6.3-8.2) g/dL Albumin 4.9 (3.5-5.0) g/dL Lipase 208 (23-300) U/L Urine Color Urine Appearance (Clear) Urine pH (5.0-8.0) Ur Specific [place] (1.001-1.035) Urine Protein (Negative) Urine Glucose (UA) (Negative) Urine Ketones (Negative) Urine Blood (Negative) Urine Nitrite (Negative) Urine Bilirubin (Negative) Urine Urobilinogen (<2.0) mg/dL Ur Leukocyte Esterase (Negative) Urine RBC (0-5) /hpf Urine WBC (0-5) /hpf Ur Squamous Epith Cells (0-4) /hpf Hyaline Casts (0-2) /lpf Urine Mucus (None) /hpf 02/16/20 Range/Units 13:37 WBC (3.8-10.6) k/uL RBC (3.80-5.40) m/uL Hgb (11.4-16.0) gm/dL Hct (34.0-46.0) % MCV (80.0-100.0) fL MCH (25.0-35.0) pg MCHC (31.0-37.0) g/dL RDW (11.5-15.5) % Plt Count (150-450) k/uL Neutrophils % % Lymphocytes % % Monocytes % % Eosinophils % % Basophils % % Neutrophils # (1.3-7.7) k/uL Lymphocytes # (1.0-4.8) k/uL Monocytes # (0-1.0) k/uL Eosinophils # (0-0.7) k/uL Basophils # (0-0.2) k/uL Sodium (137-145) mmol/L Potassium (3.5-5.1) mmol/L Chloride (98-107) mmol/L Carbon Dioxide (22-30) mmol/L Anion Gap mmol/L BUN (7-17) mg/dL Creatinine (0.52-1.04) mg/dL Est GFR (CKD-EPI)AfAm (>60 ml/min/1.73 sqM) Est GFR (CKD-EPI)NonAf (>60 ml/min/1.73 sqM) Glucose (74-99) mg/dL Plasma Lactic Acid Clarke (0.7-2.0) mmol/L Calcium (8.4-10.2) mg/dL Total Bilirubin (0.2-1.3) mg/dL AST (14-36) U/L ALT (4-34) U/L Alkaline Phosphatase (38-126) U/L Total Protein (6.3-8.2) g/dL Albumin (3.5-5.0) g/dL Lipase (23-300) U/L Urine Color Yellow Urine Appearance Cloudy H (Clear) Urine pH 6.5 (5.0-8.0) Ur Specific [place] 1.018 (1.001-1.035) Urine Protein Trace H (Negative) Urine Glucose (UA) Negative (Negative) Urine Ketones Negative (Negative) Urine Blood Negative (Negative) Urine Nitrite Negative (Negative) Urine Bilirubin Negative (Negative) Urine Urobilinogen <2.0 (<2.0) mg/dL Ur Leukocyte Esterase Large H (Negative) Urine RBC 2 (0-5) /hpf Urine WBC 81 H (0-5) /hpf Ur Squamous Epith Cells 11 H (0-4) /hpf Hyaline Casts 4 H (0-2) /lpf Urine Mucus Occasional H (None) /hpf Disposition Clinical Impression: Pyelonephritis, Dehydration, Nausea Disposition: HOME SELF-CARE Condition: Stable Instructions (If sedation given, give patient instructions): Kidney Infection (ED) Additional Instructions: Please return to the Emergency Department if symptoms worsen or any other concerns. Take antibiotic as prescribed. Follow up with urology as discussed previously. May take Tylenol for continued pain. Increase fluid intake. Prescriptions: Levofloxacin [Levaquin] 750 mg PO DAILY 5 Days #5 tab Is patient prescribed a controlled substance at d/c from ED?: No Referrals: Jose Damian MD [Primary Care Provider] - 1-2 days Kelvin Butler MD [STAFF PHYSICIAN] - 1-2 days
[2020-02-16 13:45] LABS: Basophils # (A) 0.1 k/uL (0-0.2); Basophils % (A) 1 %; Eosinophils # (A) 0.1 k/uL (0-0.7); Eosinophils % (A) 1 %; HCT 46.3 % (34.0-46.0); HGB 16.3 gm/dL (11.4-16.0); Lymphocytes # (A) 1.7 k/uL (1.0-4.8); Lymphocytes % (A) 13 %; MCH 31.4 pg (25.0-35.0); MCHC 35.2 g/dL (31.0-37.0); MCV 89.3 fL (80.0-100.0); Mean Platelet Volume 8.3; Monocytes # (A) 0.5 k/uL (0-1.0); Monocytes % (A) 4 %; Neutrophils # (A) 10.4 k/uL (1.3-7.7); Neutrophils % (A) 80 %; Platelet Count 240 k/uL (150-450); RBC 5.19 m/uL (3.80-5.40); RDW 13.3 % (11.5-15.5)
[2020-02-16 13:49] LABS: Appearance,Urine Cloudy (Clear); Bilirubin,Urine Negative (Negative); Blood,Urine Negative (Negative); Color,Urine Yellow; Glucose,Urine (UA) Negative (Negative); Hyaline Casts,Urine 4 /lpf (0-2); Ketones,Urine Negative (Negative); Leukocyte Esterase,Urine Large (Negative); Mucus,Urine Occasional /hpf; Nitrite,Urine Negative (Negative); PH, Urine 6.5 (5.0-8.0); Protein,Urine Trace (Negative); RBC,Urine 2 /hpf (0-5); Specific Gravity,Urine 1.018 (1.001-1.035); Squamous Epithelial Cell,Urine 11 /hpf (0-4); Urobilinogen,Urine <2.0 mg/dL (<2.0); WBC,Urine 81 /hpf (0-5)
[2020-02-16 13:54] LABS: Albumin 4.9 g/dL (3.5-5.0); Potassium 3.6 mmol/L (3.5-5.1); Total Bilirubin 1.1 mg/dL (0.2-1.3); Total Protein 8.3 g/dL (6.3-8.2)
[2020-02-16] MEDS ORDERED: ACETAMINOPHEN TAB 500 MG TAB PO STA (13:59)
[2020-02-16] MEDS ORDERED: LEVOFLOXACIN 750 MG TAB PO STA (15:20)
[2020-02-16 15:31] VITALS: BP 131/87; PULSE 83; RESP 16
== END 2020-02-16 15:34 | disposition home or self-care (01) ==
LOC: EC 12:58
DX: N12 Tubulo-interstitial nephritis, not specified as acute or chronic (principal); E86.0 Dehydration; I10 Essential (primary) hypertension; F32.9 Major depressive disorder, single episode, unspecified; R74.0 Nonspecific elevation of levels of transaminase and lactic acid dehydrogenase [LDH]; Z79.899 Other long term (current) drug therapy; Z91.048 Other nonmedicinal substance allergy status; Z88.2 Allergy status to sulfonamides; Z88.1 Allergy status to other antibiotic agents; Z88.5 Allergy status to narcotic agent; Z90.49 Acquired absence of other specified parts of digestive tract; Z90.710 Acquired absence of both cervix and uterus; Z98.890 Other specified postprocedural states; Z87.442 Personal history of urinary calculi
CPT/HCPCS: 36415; 80053; 83605; 83690; 85025; 81001; 87040; 87086; 99284; 96374; 96361 ×2; J2405

== ENCOUNTER 2020-02-22 07:32 | Emergency (ER) | payer MEDICARE ==
[2020-02-22] MEDS ORDERED: SODIUM CHLORIDE 0.9% 500 ML 500 ML IV STA (07:43)
[2020-02-22 07:47] VITALS: RESP 18; TEMP 98.2
--- NOTE | 2020-02-22 08:02 | ED ---
General Adult HPI - General Stated complaint: Weakness Time Seen by Provider: 02/22/20 07:41 Source: patient, EMS, RN notes reviewed, old records reviewed Mode of arrival: EMS Limitations: no limitations - History of Present Illness Initial comments: 65 -year-old female presenting for reevaluation of weakness and fatigue. She was seen one week ago diagnosed with bladder infection treated with antibiotics she has completed this antibiotic in the past 24 hours. She continues to feel unwell. She's had nausea. She had an episode of jaw pain yesterday evening approximately 12 hours prior to arrival with no associated chest pain. No cough or dyspnea. Denies focal numbness or weakness. Additionally she was having some lightheadedness and thought this was associated to her antidepressant medication and she abruptly discontinued this medication several days ago. - Related Data Home Medications Medication Instructions Recorded Confirmed Mirtazapine 30 mg PO HS 09/11/15 02/22/20 Omeprazole [PriLOSEC] 20 mg PO DAILY PRN 12/06/16 02/22/20 Losartan [Cozaar] 50 mg PO QAM 01/25/20 02/22/20 hydroCHLOROthiazide 50 mg PO DAILY 01/25/20 02/22/20 Acetaminophen [Tylenol Arthritis] 1,300 mg PO Q12H PRN 02/22/20 02/22/20 Previous Rx's Medication Instructions Recorded Levofloxacin [Levaquin] 750 mg PO DAILY 5 Days #5 tab 02/16/20 Potassium Chloride [K-Tab ER] 20 meq PO DAILY #7 tablet.er 02/22/20 Allergies Allergy/AdvReac Type Severity Reaction Status Date / Time adhesive Allergy ITCHING/RED Verified 02/22/20 08:43 DNESS cephalexin monohydrate Allergy Nausea & Verified 02/22/20 08:43 [From Keflex] Vomiting erythromycin base Allergy "I Verified 02/22/20 08:43 COULDN'T BREATHE" morphine Allergy Nausea & Verified 02/22/20 08:43 Vomiting nystatin Allergy Nausea & Verified 02/22/20 08:43 Vomiting sulfamethoxazole Allergy LIGHTHEADEDNESS, Verified 02/22/20 08:43 [From Septra] VOMITING trimethoprim [From Septra] Allergy LIGHTHEADEDNESS, Verified 02/22/20 08:43 VOMITING codeine AdvReac Nausea & Verified 02/22/20 08:43 Vomiting ibuprofen [From Motrin] AdvReac Diarrhea Verified 02/22/20 08:43 Review of Systems ROS Statement: Those systems with pertinent positive or pertinent negative responses have been documented in the HPI. ROS Other: All systems not noted in ROS Statement are negative. 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 History of Any Multi-Drug Resistant Organisms: None Reported Past Surgical History: Section, Cholecystectomy, Hernia Repair, Hysterectomy, Tonsillectomy Additional Past Surgical History / Comment(s): 7 EYE SX R/T TO MUSCLES, ELFEGO CATARACT Past Anesthesia/Blood Transfusion Reactions: No Reported Reaction Past Psychological History: Depression Smoking Status: Never smoker Past Alcohol Use History: Occasional Past Drug Use History: None Reported - Past Family History Mother Family Medical History: Unable to Obtain Additional Family Medical History / Comment(s): PATIENT ADOPTED General Exam Limitations: no limitations General appearance: alert, in no apparent distress Head exam: Present: atraumatic, normocephalic Eye exam: Present: normal appearance, PERRL ENT exam: Present: normal exam Neck exam: Present: normal inspection. Absent: tenderness, meningismus Respiratory exam: Present: normal lung sounds bilaterally. Absent: respiratory distress, wheezes Cardiovascular Exam: Present: regular rate, normal rhythm GI/Abdominal exam: Present: soft. Absent: distended, tenderness, guarding Extremities exam: Present: normal inspection, normal capillary refill. Absent: pedal edema Neurological exam: Present: alert, oriented X3, CN II-XII intact. Absent: motor sensory deficit Psychiatric exam: Present: normal affect, normal mood Skin exam: Present: warm, dry, intact. Absent: cyanosis, diaphoretic Course Vital Signs 02/22/20 02/22/20 07:37 09:41 Temperature 98.2 F Pulse Rate 82 96 Respiratory 18 18 Rate Blood Pressure 113/69 122/96 O2 Sat by Pulse 96 96 Oximetry EKG Findings - EKG Comments: EKG Findings:: EKG: Normal sinus rhythm, inferior infarct with Q waves and T- wave inversion in inferior leads, no ST segment elevation, rate of 78, [place] interval 172, QRS duration 80, QTC 458 Medical Decision Making - Medical Decision Making 65-year-old female with recent UTI, weakness. Patient denies chest pain, denies fever. Denies focal numbness or weakness. Workup reveals EKG which is sinus rhythm, no ST segment elevation, chest x-ray is negative for acute cardiopulmonary disease. She has a white blood cell count of 11.5 which is down trending from previous ER visit of 13. She has a potassium of 2.7 which is replaced in the emergency department. She has a lactic of 2.1 which is improved and consistent with previous ER visit one week ago with a lactic of 2.2. She has a persistent UTI, culture was negative, similar appearing UTI. We will await repeat culture results before reinitiating an antibiotic at this time. I did offer admission for electrolyte replacement and fluid patient states she wishes to go home. She is given strict return parameters, she will be given a seven-day course of potassium and is instructed to have this lab repeated with her primary care physician. - Lab Data Result diagrams: 02/22/20 07:52 02/22/20 07:52 Lab Results 02/22/20 02/22/20 02/22/20 Range/Units 07:52 07:52 07:52 WBC 11.5 H (3.8-10.6) k/uL RBC 4.72 (3.80-5.40) m/uL Hgb 15.0 (11.4-16.0) gm/dL Hct 42.8 (34.0-46.0) % MCV 90.7 (80.0-100.0) fL MCH 31.8 (25.0-35.0) pg MCHC 35.1 (31.0-37.0) g/dL RDW 13.5 (11.5-15.5) % Plt Count 173 (150-450) k/uL Neutrophils % 78 % Lymphocytes % 14 % Monocytes % 5 % Eosinophils % 1 % Basophils % 1 % Neutrophils # 9.0 H (1.3-7.7) k/uL Lymphocytes # 1.7 (1.0-4.8) k/uL Monocytes # 0.6 (0-1.0) k/uL Eosinophils # 0.1 (0-0.7) k/uL Basophils # 0.1 (0-0.2) k/uL PT 10.7 (9.0-12.0) sec INR 1.0 (<1.2) APTT 23.0 (22.0-30.0) sec Sodium (137-145) mmol/L Potassium (3.5-5.1) mmol/L Chloride (98-107) mmol/L Carbon Dioxide (22-30) mmol/L Anion Gap mmol/L BUN (7-17) mg/dL Creatinine (0.52-1.04) mg/dL Est GFR (CKD-EPI)AfAm (>60 ml/min/1.73 sqM) Est GFR (CKD-EPI)NonAf (>60 ml/min/1.73 sqM) Glucose (74-99) mg/dL Plasma Lactic Acid Clarke (0.7-2.0) mmol/L Calcium (8.4-10.2) mg/dL Magnesium (1.6-2.3) mg/dL Total Bilirubin (0.2-1.3) mg/dL AST (14-36) U/L ALT (4-34) U/L Alkaline Phosphatase (38-126) U/L Troponin I (0.000-0.034) ng/mL Total Protein (6.3-8.2) g/dL Albumin (3.5-5.0) g/dL Urine Color Yellow Urine Appearance Cloudy H (Clear) Urine pH 6.5 (5.0-8.0) Ur Specific [place] 1.021 (1.001-1.035) Urine Protein Trace H (Negative) Urine Glucose (UA) Negative (Negative) Urine Ketones 1+ H (Negative) Urine Blood Negative (Negative) Urine Nitrite Negative (Negative) Urine Bilirubin Negative (Negative) Urine Urobilinogen <2.0 (<2.0) mg/dL Ur Leukocyte Esterase Large H (Negative) Urine RBC 3 (0-5) /hpf Urine WBC 85 H (0-5) /hpf Ur Squamous Epith Cells 4 (0-4) /hpf Urine Bacteria Rare H (None) /hpf Urine Mucus Rare H (None) /hpf 02/22/20 02/22/20 02/22/20 Range/Units 07:52 07:52 07:52 WBC (3.8-10.6) k/uL RBC (3.80-5.40) m/uL Hgb (11.4-16.0) gm/dL Hct (34.0-46.0) % MCV (80.0-100.0) fL MCH (25.0-35.0) pg MCHC (31.0-37.0) g/dL RDW (11.5-15.5) % Plt Count (150-450) k/uL Neutrophils % % Lymphocytes % % Monocytes % % Eosinophils % % Basophils % % Neutrophils # (1.3-7.7) k/uL Lymphocytes # (1.0-4.8) k/uL Monocytes # (0-1.0) k/uL Eosinophils # (0-0.7) k/uL Basophils # (0-0.2) k/uL PT (9.0-12.0) sec INR (<1.2) APTT (22.0-30.0) sec Sodium 135 L (137-145) mmol/L Potassium 2.7 L* (3.5-5.1) mmol/L Chloride 98 (98-107) mmol/L Carbon Dioxide 25 (22-30) mmol/L Anion Gap 12 mmol/L BUN 19 H (7-17) mg/dL Creatinine 0.95 (0.52-1.04) mg/dL Est GFR (CKD-EPI)AfAm 73 (>60 ml/min/1.73 sqM) Est GFR (CKD-EPI)NonAf 63 (>60 ml/min/1.73 sqM) Glucose 133 H (74-99) mg/dL Plasma Lactic Acid Clarke 2.1 H* (0.7-2.0) mmol/L Calcium 9.0 (8.4-10.2) mg/dL Magnesium 2.2 (1.6-2.3) mg/dL Total Bilirubin 0.8 (0.2-1.3) mg/dL AST 27 (14-36) U/L ALT 17 (4-34) U/L Alkaline Phosphatase 89 (38-126) U/L Troponin I <0.012 (0.000-0.034) ng/mL Total Protein 6.7 (6.3-8.2) g/dL Albumin 4.1 (3.5-5.0) g/dL Urine Color Urine Appearance (Clear) Urine pH (5.0-8.0) Ur Specific [place] (1.001-1.035) Urine Protein (Negative) Urine Glucose (UA) (Negative) Urine Ketones (Negative) Urine Blood (Negative) Urine Nitrite (Negative) Urine Bilirubin (Negative) Urine Urobilinogen (<2.0) mg/dL Ur Leukocyte Esterase (Negative) Urine RBC (0-5) /hpf Urine WBC (0-5) /hpf Ur Squamous Epith Cells (0-4) /hpf Urine Bacteria (None) /hpf Urine Mucus (None) /hpf Disposition Clinical Impression: Dehydration, Hypokalemia Disposition: HOME SELF-CARE Condition: Fair Instructions (If sedation given, give patient instructions): Hypokalemia (ED), Weakness (ED) Prescriptions: Potassium Chloride [K-Tab ER] 20 meq PO DAILY #7 tablet.er Is patient prescribed a controlled substance at d/c from ED?: No Referrals: Jose Damian MD [Primary Care Provider] - 1-2 days Time of Disposition: 09:47
[2020-02-22 08:41] LABS: Basophils # (A) 0.1 k/uL (0-0.2); Basophils % (A) 1 %; Eosinophils # (A) 0.1 k/uL (0-0.7); Eosinophils % (A) 1 %; HCT 42.8 % (34.0-46.0); Lymphocytes # (A) 1.7 k/uL (1.0-4.8); Lymphocytes % (A) 14 %; MCH 31.8 pg (25.0-35.0); MCHC 35.1 g/dL (31.0-37.0); MCV 90.7 fL (80.0-100.0); Mean Platelet Volume 8.9; Monocytes # (A) 0.6 k/uL (0-1.0); Monocytes % (A) 5 %; Neutrophils % (A) 78 %; Platelet Count 173 k/uL (150-450); RBC 4.72 m/uL (3.80-5.40); RDW 13.5 % (11.5-15.5); WBC 11.5 k/uL (3.8-10.6)
[2020-02-22 08:49] LABS: Appearance,Urine Cloudy (Clear); Bacteria,Urine Rare /hpf; Bilirubin,Urine Negative (Negative); Blood,Urine Negative (Negative); Color,Urine Yellow; Glucose,Urine (UA) Negative (Negative); Ketones,Urine 1+ (Negative); Leukocyte Esterase,Urine Large (Negative); Mucus,Urine Rare /hpf; Nitrite,Urine Negative (Negative); PH, Urine 6.5 (5.0-8.0); Protein,Urine Trace (Negative); RBC,Urine 3 /hpf (0-5); Specific Gravity,Urine 1.021 (1.001-1.035); Squamous Epithelial Cell,Urine 4 /hpf (0-4); Urobilinogen,Urine <2.0 mg/dL (<2.0); WBC,Urine 85 /hpf (0-5)
--- NOTE | 2020-02-22 08:49 | XR ---
EXAMINATION TYPE: XR chest 2V DATE OF EXAM: 02/22/2020 COMPARISON: NONE HISTORY: Shortness of breath TECHNIQUE: Frontal and lateral views of the chest are obtained. FINDINGS: Scattered senescent parenchymal changes noted. Hyperinflation compatible with COPD. No evidence for infiltrate. No evidence for atelectasis. Heart size is stable. Mediastinal structures are stable and grossly unremarkable. No evidence for hilar prominence. Degenerative changes dorsal spine. IMPRESSION: 1. No evidence for acute pulmonary disease.
[2020-02-22 08:50] LABS: Albumin 4.1 g/dL (3.5-5.0); Magnesium 2.2 mg/dL (1.6-2.3); Total Bilirubin 0.8 mg/dL (0.2-1.3); Total Protein 6.7 g/dL (6.3-8.2)
[2020-02-22 08:57] LABS: Prothrombin Time 10.7 sec (9.0-12.0)
[2020-02-22 08:59] LABS: Potassium 2.7 mmol/L (3.5-5.1)
[2020-02-22] MEDS ORDERED: POTASSIUM CHLORIDE ER 20 MEQ TAB.ER PO STA (09:33)
[2020-02-22 10:11] VITALS: BP 119/66; PULSE 73
== END 2020-02-22 10:11 | disposition home or self-care (01) ==
LOC: EC 07:32
DX: E86.0 Dehydration (principal); E87.6 Hypokalemia; F32.9 Major depressive disorder, single episode, unspecified; I10 Essential (primary) hypertension; Z79.899 Other long term (current) drug therapy; Z88.1 Allergy status to other antibiotic agents; Z88.2 Allergy status to sulfonamides; Z88.5 Allergy status to narcotic agent; Z88.6 Allergy status to analgesic agent; Z98.42 Cataract extraction status, left eye; Z98.41 Cataract extraction status, right eye
CPT/HCPCS: 36415; 71046; 80053; 81001; 83605; 83735; 84484; 85025; 85610; 85730; 87040; 87086; 93005; 96360; 96361; 99285

== ENCOUNTER 2020-03-02 13:55 | Observation (INO) | payer MEDICARE ==
--- NOTE | 2020-03-02 15:04 | ED ---
General Adult HPI - General Chief complaint: Arrhythmia/Palpitations Stated complaint: Heart Racing, Nausea, Abnormal Labs Time Seen by Provider: 03/02/20 14:13 Source: patient, RN notes reviewed, old records reviewed Mode of arrival: ambulatory Limitations: no limitations - History of Present Illness Initial comments: 65-year-old female presenting with chief complaint of palpitations. Patient was noted to have elected foot abnormality one week ago, was placed on supplemental potassium and was instructed to have repeat labs drawn within one week. She was unable to follow with her primary care physician, she is in the process of obtaining a new primary care physician. Yesterday evening she developed palpitations which woke her from sleep. She denied associated chest pain or dyspnea. No vomiting. She's had some lightheadedness which she attributes to her blood pressure medication. She states she had been prescribed 50 mg of losartan and 50 mg of hydrochlorothiazide. She states she was previously on 12 mg of hydrochlorothiazide. She has been off his medication for the past approximately one week. She states that many of her symptoms were associated with this blood pressure medication and were related in time to when she took these medications. No central chest pain. No focal numbness or weakness. - Related Data Home Medications Medication Instructions Recorded Confirmed Mirtazapine 30 mg PO HS 09/11/15 02/22/20 Omeprazole [PriLOSEC] 20 mg PO DAILY PRN 12/06/16 02/22/20 Losartan [Cozaar] 50 mg PO QAM 01/25/20 02/22/20 hydroCHLOROthiazide 50 mg PO DAILY 01/25/20 02/22/20 Acetaminophen [Tylenol Arthritis] 1,300 mg PO Q12H PRN 02/22/20 02/22/20 Previous Rx's Medication Instructions Recorded Levofloxacin [Levaquin] 750 mg PO DAILY 5 Days #5 tab 02/16/20 Potassium Chloride [K-Tab ER] 20 meq PO DAILY #7 tablet.er 02/22/20 Allergies Allergy/AdvReac Type Severity Reaction Status Date / Time adhesive Allergy ITCHING/RED Verified 03/02/20 14:12 DNESS cephalexin monohydrate Allergy Nausea & Verified 03/02/20 14:12 [From Keflex] Vomiting erythromycin base Allergy "I Verified 03/02/20 14:12 COULDN'T BREATHE" morphine Allergy Nausea & Verified 03/02/20 14:12 Vomiting nystatin Allergy Nausea & Verified 03/02/20 14:12 Vomiting sulfamethoxazole Allergy LIGHTHEADEDNESS, Verified 03/02/20 14:12 [From Septra] VOMITING trimethoprim [From Septra] Allergy LIGHTHEADEDNESS, Verified 03/02/20 14:12 VOMITING codeine AdvReac Nausea & Verified 03/02/20 14:12 Vomiting ibuprofen [From Motrin] AdvReac Diarrhea Verified 03/02/20 14:12 Review of Systems ROS Statement: Those systems with pertinent positive or pertinent negative responses have been documented in the HPI. ROS Other: All systems not noted in ROS Statement are negative. 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 History of Any Multi-Drug Resistant Organisms: None Reported Past Surgical History: Section, Cholecystectomy, Hernia Repair, Hysterectomy, Tonsillectomy Additional Past Surgical History / Comment(s): 7 EYE SX R/T TO MUSCLES, ELFEGO CATARACT Past Anesthesia/Blood Transfusion Reactions: No Reported Reaction Past Psychological History: Depression Smoking Status: Never smoker Past Alcohol Use History: Occasional Past Drug Use History: None Reported - Past Family History Mother Family Medical History: Unable to Obtain Additional Family Medical History / Comment(s): PATIENT ADOPTED General Exam Limitations: no limitations General appearance: alert, in no apparent distress, anxious Head exam: Present: atraumatic, normocephalic Eye exam: Present: normal appearance, PERRL ENT exam: Present: normal exam Neck exam: Present: normal inspection. Absent: tenderness, meningismus Respiratory exam: Present: normal lung sounds bilaterally. Absent: respiratory distress, wheezes Cardiovascular Exam: Present: regular rate, normal rhythm GI/Abdominal exam: Present: soft. Absent: distended, tenderness, guarding Extremities exam: Present: normal inspection, normal capillary refill. Absent: pedal edema Neurological exam: Present: alert, oriented X3, CN II-XII intact. Absent: motor sensory deficit Psychiatric exam: Present: normal affect, normal mood Skin exam: Present: warm, dry, intact. Absent: cyanosis, diaphoretic Course Vital Signs 03/02/20 03/02/20 14:03 15:48 Temperature 98.7 F Pulse Rate 85 68 Respiratory 18 16 Rate Blood Pressure 145/86 157/89 O2 Sat by Pulse 100 100 Oximetry EKG Findings - EKG Comments: EKG Findings:: EKG: Normal sinus rhythm, rate of 86, ME interval 148, QRS duration 70, QTC [address] segment elevation. Medical Decision Making - Medical Decision Making 65-year-old female with palpitations, associated nausea and indigestion. No specific chest pain. EKG showing sinus rhythm. Patient has had a slight abnormalities and multiple both ER visits and medication changes over the past several weeks. She is having palpitations with associated nausea and ingestion. There is concern for anginal equivalent in this patient. Workup reveals normal CBC, normal electrolytes including a normal potassium at this time. She has a negative initial troponin. She will be kept in observation for telemetry, serial cardiac enzymes. Case discussed with Dr. Salmon will admit. - Lab Data Result diagrams: 03/02/20 14:43 03/02/20 14:52 Lab Results 03/02/20 03/02/20 03/02/20 Range/Units 14:43 14:52 14:52 WBC 9.1 (3.8-10.6) k/uL RBC 4.48 (3.80-5.40) m/uL Hgb 14.1 (11.4-16.0) gm/dL Hct 42.6 (34.0-46.0) % MCV 94.9 (80.0-100.0) fL MCH 31.5 (25.0-35.0) pg MCHC 33.2 (31.0-37.0) g/dL RDW 13.8 (11.5-15.5) % Plt Count 171 (150-450) k/uL Neutrophils % 73 % Lymphocytes % 20 % Monocytes % 4 % Eosinophils % 1 % Basophils % 1 % Neutrophils # 6.6 (1.3-7.7) k/uL Lymphocytes # 1.8 (1.0-4.8) k/uL Monocytes # 0.4 (0-1.0) k/uL Eosinophils # 0.1 (0-0.7) k/uL Basophils # 0.1 (0-0.2) k/uL PT 10.0 (9.0-12.0) sec INR 1.0 (<1.2) APTT 23.1 (22.0-30.0) sec Sodium 141 (137-145) mmol/L Potassium 4.5 (3.5-5.1) mmol/L Chloride 111 H (98-107) mmol/L Carbon Dioxide 20 L (22-30) mmol/L Anion Gap 10 mmol/L BUN 16 (7-17) mg/dL Creatinine 0.71 (0.52-1.04) mg/dL Est GFR (CKD-EPI)AfAm >90 (>60 ml/min/1.73 sqM) Est GFR (CKD-EPI)NonAf >90 (>60 ml/min/1.73 sqM) Glucose 137 H (74-99) mg/dL Calcium 9.8 (8.4-10.2) mg/dL Magnesium 2.0 (1.6-2.3) mg/dL Total Bilirubin 0.6 (0.2-1.3) mg/dL AST 33 (14-36) U/L ALT 20 (4-34) U/L Alkaline Phosphatase 76 (38-126) U/L Troponin I (0.000-0.034) ng/mL Total Protein 7.0 (6.3-8.2) g/dL Albumin 4.2 (3.5-5.0) g/dL 03/02/20 Range/Units 14:52 WBC (3.8-10.6) k/uL RBC (3.80-5.40) m/uL Hgb (11.4-16.0) gm/dL Hct (34.0-46.0) % MCV (80.0-100.0) fL MCH (25.0-35.0) pg MCHC (31.0-37.0) g/dL RDW (11.5-15.5) % Plt Count (150-450) k/uL Neutrophils % % Lymphocytes % % Monocytes % % Eosinophils % % Basophils % % Neutrophils # (1.3-7.7) k/uL Lymphocytes # (1.0-4.8) k/uL Monocytes # (0-1.0) k/uL Eosinophils # (0-0.7) k/uL Basophils # (0-0.2) k/uL PT (9.0-12.0) sec INR (<1.2) APTT (22.0-30.0) sec Sodium (137-145) mmol/L Potassium (3.5-5.1) mmol/L Chloride (98-107) mmol/L Carbon Dioxide (22-30) mmol/L Anion Gap mmol/L BUN (7-17) mg/dL Creatinine (0.52-1.04) mg/dL Est GFR (CKD-EPI)AfAm (>60 ml/min/1.73 sqM) Est GFR (CKD-EPI)NonAf (>60 ml/min/1.73 sqM) Glucose (74-99) mg/dL Calcium (8.4-10.2) mg/dL Magnesium (1.6-2.3) mg/dL Total Bilirubin (0.2-1.3) mg/dL AST (14-36) U/L ALT (4-34) U/L Alkaline Phosphatase (38-126) U/L Troponin I <0.012 (0.000-0.034) ng/mL Total Protein (6.3-8.2) g/dL Albumin (3.5-5.0) g/dL Disposition Clinical Impression: Palpitations, Chest pain Disposition: ADMITTED IP TO THIS [facility] Condition: Stable Is patient prescribed a controlled substance at d/c from ED?: No Referrals: Jose Damian MD [Primary Care Provider] - 1-2 days Decision to Admit Reason: Admit from EC Decision Date: 03/02/20 Decision Time: 16:18
--- NOTE | 2020-03-02 15:11 | XR ---
EXAMINATION TYPE: XR chest 2V DATE OF EXAM: 03/02/2020 COMPARISON: 02/22/2020 HISTORY: Dysrhythmia TECHNIQUE: 2 views. There is no heart failure nor confluent pneumonic infiltrate. Costophrenic angles are clear. Heart si ze is normal. There are chest leads. Bony thorax is intact. There is spurring in the thoracic spine. IMPRESSION: No active cardiopulmonary disease. No change.
[2020-03-02 15:34] LABS: Basophils # (A) 0.1 k/uL (0-0.2); Basophils % (A) 1 %; Eosinophils # (A) 0.1 k/uL (0-0.7); Eosinophils % (A) 1 %; HCT 42.6 % (34.0-46.0); HGB 14.1 gm/dL (11.4-16.0); Lymphocytes # (A) 1.8 k/uL (1.0-4.8); Lymphocytes % (A) 20 %; MCH 31.5 pg (25.0-35.0); MCHC 33.2 g/dL (31.0-37.0); MCV 94.9 fL (80.0-100.0); Monocytes # (A) 0.4 k/uL (0-1.0); Monocytes % (A) 4 %; Neutrophils # (A) 6.6 k/uL (1.3-7.7); Neutrophils % (A) 73 %; Platelet Count 171 k/uL (150-450); RBC 4.48 m/uL (3.80-5.40); RDW 13.8 % (11.5-15.5); WBC 9.1 k/uL (3.8-10.6)
[2020-03-02 15:45] LABS: ALT 20 U/L (4-34); AST 33 U/L (14-36); African American GFR (CKD) >90 (>60 ml/min/1.73 sqM); Albumin 4.2 g/dL (3.5-5.0); Alkaline Phosphatase 76 U/L (38-126); Anion Gap 10 mmol/L; Blood Urea Nitrogen 16 mg/dL (7-17); Calcium 9.8 mg/dL (8.4-10.2); Carbon Dioxide 20 mmol/L (22-30); Chloride 111 mmol/L (98-107); Glucose 137 mg/dL (74-99); Non-African American GFR(CKD) >90 (>60 ml/min/1.73 sqM); Partial Thromboplastin Time 23.1 sec (22.0-30.0); Potassium 4.5 mmol/L (3.5-5.1); Sodium 141 mmol/L (137-145); Total Bilirubin 0.6 mg/dL (0.2-1.3)
[2020-03-02] MEDS ORDERED: ONDANSETRON 4 MG/2 ML VIAL IVP STA (16:14)
[2020-03-02] MEDS ORDERED: ASPIRIN 325 MG TAB PO STA (16:14)
[2020-03-02] MEDS ORDERED: NALOXONE 0.4 MG/ML 1 ML VIAL IV PRN (16:15)
[2020-03-02] MEDS ORDERED: SODIUM CHLORIDE 0.9% 1,000 ML IV SCH (16:15)
[2020-03-02] MEDS ORDERED: ONDANSETRON 4 MG/2 ML VIAL IVP PRN (16:15)
[2020-03-02] MEDS: FAMOTIDINE 20 MG TAB PO SCH (20:52)
[2020-03-02] MEDS ORDERED: ENOXAPARIN 40 MG/0.4 ML SYRINGE SQ SCH (21:00)
[2020-03-02] MEDS ORDERED: MIRTAZAPINE 15 MG TAB PO SCH (21:00)
--- NOTE | 2020-03-02 22:30 | P.HPIM ---
History of Present Illness H&P Date: 03/02/20 Chief Complaint: palpitation History of presenting complaint: This is a pleasant 65-year-old patient of Dr. Damian. Chronic stable medical conditions include asthma, diabetes, hypertension and tumor of the right parotid gland. Patient's had recurrent UTI and is due to see Dr. reyes from urology. Patient about 3 weeks ago was prescribed 50 mg of hydrochlorothiazide by PCP. Patient had been taking the same. She made 2 visits to the ER 1 February 15 and 1 on February 21. Both occasions she had a urine done that both came back infected appearing. Urine cultures on both occasions were negative. Patient was sent home with antibiotics. Patient started feeling dizzy diet unwell week. One of the resistant the ER her potassium came back at 2.7. She was discharged home on potassium supplement. Patient felt some of her symptoms are coming from Remeron that she been taking for many years. For depression. In the meantime patient is becoming very anxious. Decreased appetite or sleeping. On this occasion she presents with heart pounding some chest pressure anxious dizzy lightheaded. Given for the same. Blood pressure presentation was over 140 systolic. Patient has stopped taking her diuretic. A lower dose of diuretic was prescribed last week. She is not taking the same. Review of systems: GEN.: Tired, decreased appetite EYES: None HEENT: None NECK: None RESPIRATORY: None CARDIOVASCULAR: As above GASTROINTESTINAL: None GENITOURINARY: None MUSCULOSKELETAL: Some joint pains LYMPHATICS: None HEMATOLOGICAL: None PSYCHIATRY: Anxious depressed NEUROLOGICAL: Not sleeping well Past medical history to include: Asthma, diabetes, hypertension, right parotid gland tumor, anxiety depression Social history: No smoking. Alcohol occasionally. . Family history: Patient adopted. Patient trying to track her biological mother and father down. Physical examination: VITAL SIGNS: 98.7, 85, 18, 145/86, 100% on room air GENERAL: 35.9, laying in bed, slightly anxious. EYES: Pupils equal. Conjunctiva normal. HEENT: External appearance of nose and ears normal, oral cavity grossly normal. NECK: JVD not raised; masses not palpable. HEART: First and second heart sounds are normal; no edema. LUNGS: Respiratory rate normal; clear to auscultation. ABDOMEN: Soft, nontender, liver spleen not palpable, no masses palpable. PSYCH: Alert and oriented x3; mood and affect normal MUSCULAR skeletal: Evidence of OA. NEUROLOGICAL: Cranial nerves grossly intact; no facial asymmetry, power and sensation grossly intact. LYMPHATICS: No lymph nodes palpable in the axilla and neck INVESTIGATIONS, reviewed in the clinical context: White count 9.1 hemoglobin 14.1 platelets 171 potassium 4.5 creatinine 0.79 Troponin I is less than 0.0122 EKG tracing personally reviewed by me-sinus rhythm Assessment: -Patient presented with chest pain and palpitation dizzy lightheaded and not been eating well. Has barely be sleeping. All the symptoms are more consistent with of uncontrolled anxiety disorder. Also element of depression. Patient had taken Remeron for years has stopped it a few days ago. Patient be started on Remeron on a smaller dose. -Atypical chest pain. Rule out arrhythmia on telemetry. Will he stress test at some point -Essential hypertension -Obesity BMI 35.9 -Chronic insomnia multifactorial -Intermittent asthma - Plan: Chlorthalidone will be added. For blood pressure. Remeron 50 mg daily at bedtime is being added at night. Patient's had several social issues during her life. We will get a psychiatry and cardiology consultation. Care was discussed with the patient question also. Lovenox for DVT prophylaxis. Check thyroid status in the morning. 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 History of Any Multi-Drug Resistant Organisms: None Reported Past Surgical History: Section, Cholecystectomy, Hernia Repair, Hysterectomy, Tonsillectomy Additional Past Surgical History / Comment(s): 7 EYE SX R/T TO MUSCLES, ELFEGO CATARACT Past Anesthesia/Blood Transfusion Reactions: No Reported Reaction Past Psychological History: Depression Smoking Status: Never smoker Past Alcohol Use History: Occasional Past Drug Use History: None Reported - Past Family History Mother Family Medical History: Unable to Obtain Additional Family Medical History / Comment(s): PATIENT ADOPTED Medications and Allergies Home Medications Medication Instructions Recorded Confirmed Type Omeprazole [PriLOSEC] 20 mg PO SUWE 12/06/16 03/02/20 History Losartan [Cozaar] 50 mg PO DAILY 01/25/20 03/02/20 History L.acidoph,Paracasei, B.lactis 1 cap PO DAILY 03/02/20 03/02/20 History [Probiotic] Allergies Allergy/AdvReac Type Severity Reaction Status Date / Time adhesive Allergy ITCHING/RED Verified 03/02/20 14:12 DNESS cephalexin monohydrate Allergy Nausea & Verified 03/02/20 14:12 [From Keflex] Vomiting erythromycin base Allergy "I Verified 03/02/20 14:12 COULDN'T BREATHE" morphine Allergy Nausea & Verified 03/02/20 14:12 Vomiting nystatin Allergy Nausea & Verified 03/02/20 14:12 Vomiting sulfamethoxazole Allergy LIGHTHEADEDNESS, Verified 03/02/20 14:12 [From Septra] VOMITING trimethoprim [From Septra] Allergy LIGHTHEADEDNESS, Verified 03/02/20 14:12 VOMITING codeine AdvReac Nausea & Verified 03/02/20 14:12 Vomiting ibuprofen [From Motrin] AdvReac Diarrhea Verified 03/02/20 14:12 Physical Exam Vitals: Vital Signs Temp Pulse Pulse Resp BP BP Pulse Ox 03/02/20 20:44 73 18 03/02/20 20:41 98.3 F 73 18 133/84 98 03/02/20 16:44 67 16 149/88 99 03/02/20 15:48 68 16 157/89 100 03/02/20 14:03 98.7 F 85 18 145/86 100 Intake and Output 03/02/20 03/02/20 03/02/20 06:59 14:59 22:59 Other: Voiding Method Toilet # Voids 2 Weight 107.048 kg 107.048 kg Results CBC & Chem 7: 03/02/20 14:43 03/02/20 14:52 Labs: Abnormal Lab Results - Last 24 Hours (Table) 03/02/20 Range/Units 14:52 Chloride 111 H (98-107) mmol/L Carbon Dioxide 20 L (22-30) mmol/L Glucose 137 H (74-99) mg/dL Thrombosis Risk Factor Assmnt - Choose All That Apply Any of the Below Risk Factors Present?: Yes Each Factor Represents 1 point: Obesity (BMI >25) Other Risk Factors: Yes Each Risk Factor Represents 2 Points: Age 61-74 years Other congenital or acquired thrombophilia - If yes, enter type in comment: No Thrombosis Risk Factor Assessment Total Risk Factor Score: 3 Thrombosis Risk Factor Assessment Level: Moderate Risk
[2020-03-03] MEDS ORDERED: CHLORTHALIDONE 25 MG TAB PO SCH (09:00)
[2020-03-03] MEDS ORDERED: LOSARTAN 50 MG TAB PO SCH (09:00)
[2020-03-03 09:10] VITALS: BP 137/81; PULSE 64; RESP 16; TEMP 98.3
[2020-03-03] MEDS: FAMOTIDINE 20 MG TAB PO SCH (09:30)
--- NOTE | 2020-03-03 14:20 | P.CRDCN ---
History of Present Illness Consult date: 03/03/20 Consult reason: chest pain History of present illness: HISTORY OF PRESENTING ILLNESS This is a pleasant 65-year-old female with history of asthma, diabetes, hypertension, parotid tumor, UTIs. She has had multiple admissions in the last 1 month. She had some issues with hydrochlorothiazide causing hypokalemia and patient feeling dizzy on occasion. Patient had stopped taking her Remeron and was not sleeping or last few weeks. She has been becoming more anxious. She had an episode yesterday where it felt like her heart was pounding very hard. She denies any chest pain or pressure with this. No associated shortness of breath however some very mild feeling lightheaded. She admits to a few episodes of this in the past. She denies any history of atrial fibrillation or any other arrhythmia. This lasted for approximately 20 minutes however by the time she got to the emergency department he had improved. She denies any further recu rrence since being in the hospital. No events on telemetry. Denies any syncopal episodes. DIAGNOSTICS EKG reveals normal sinus rhythm, left axis deviation, nonspecific T-wave inversions and flattening in 3 and aVF. Chest xray no acute process. Laboratory reviewed, white blood cell count 9.1, hemoglobin 14.1, creatinine 0.71, troponin negative 3, TSH 1.25. Current cardiac medications include losartan 50 mg daily, chlorthalidone 25 mg daily. REVIEW OF SYSTEMS At the time of my exam: CONSTITUTIONAL: Denies fever or chills. CARDIOVASCULAR: Denies chest pain, shortness of breath, orthopnea, PND, + palpitations. RESPIRATORY: Denies cough. GASTROINTESTINAL: Denies abdominal pain, diarrhea, constipation, nausea or vomiting. MUSCULOSKELETAL: Denies myalgias. NEUROLOGIC: Denies numbness, tingling or weakness. ENDOCRINE: Denies fatigue, weight change, polydipsia or polyurina. GENITOURINARY: Denies burning, hematuria or urgency with micturation. HEMATOLOGIC: Denies history of anemia or bleeding. PHYSICAL EXAMINATION Blood pressure 137/81 heart rate 64 bpm afebrile and maintaining oxygen saturation on room air. CONSTITUTIONAL: No apparent distress. HEENT: Head is normocephalic. Pupils are equal, round. Sclerae anicteric. Mucous membranes of the mouth are moist. No JVD. No carotid bruit. CHEST EXAMINATION: Lungs are clear to auscultation. No chest wall tenderness is noted on palpation or with deep breathing. HEART EXAMINATION: Regular rate and rhythm. S1, S2 heard. No murmurs, gallops or rub. ABDOMEN: Soft, nontender. Positive bowel sounds. EXTREMITIES: 2+ peripheral pulses, no lower extremity edema and no calf tenderness. NEUROLOGIC EXAMINATION: Patient is awake, alert and oriented x3. ASSESSMENT 1. Palpitations which improved upon arrival to the emergency department. Patient states she did not actually have any chest pain. Troponins negative 3 and do not suspect acute coronary syndrome. 2. Essential hypertension with multiple changes to her medical regimen in the past 1 month. She had issues with hydrochlorothiazide with decrease in potassium and palpitations at that time. Chlorthalidone has been added. 3. Dizziness of unclear etiology, no significant bradycardia or tachyarrhythmias noted. 4. Anxiety PLAN Patient denies any actual chest pain and predominantly had palpitations. Her palpitations had resolved by the time she got to the emergency department and she may have had an arrhythmia. No significant syncope or near syncope and this may represent an SVT. We may consider beta juan luis if patient able to tolerate an office. Patient appears to be safe for discharge from his cardiology standpoint with outpatient follow-up. Likely consider event monitor to further assess for tachycardia or bradycardia arrhythmia. Major component may be anxiety with patient not sleeping and had not been receiving her Remeron. 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 History of Any Multi-Drug Resistant Organisms: None Reported Past Surgical History: Section, Cholecystectomy, Hernia Repair, Hysterectomy, Tonsillectomy Additional Past Surgical History / Comment(s): 7 EYE SX R/T TO MUSCLES, ELFEGO CATARACT Past Anesthesia/Blood Transfusion Reactions: No Reported Reaction Past Psychological History: Depression Smoking Status: Never smoker Past Alcohol Use History: Occasional Past Drug Use History: None Reported - Past Family History Mother Family Medical History: Unable to Obtain Additional Family Medical History / Comment(s): PATIENT ADOPTED Medications and Allergies Home Medications Medication Instructions Recorded Confirmed Type Omeprazole [PriLOSEC] 20 mg PO SUWE 12/06/16 03/02/20 History Losartan [Cozaar] 50 mg PO DAILY 01/25/20 03/02/20 History L.acidoph,Paracasei, B.lactis 1 cap PO DAILY 03/02/20 03/02/20 History [Probiotic] Chlorthalidone [Hygroton] 25 mg PO DAILY #30 tab 03/03/20 Rx Mirtazapine [Remeron] 15 mg PO HS #30 tab 03/03/20 Rx Allergies Allergy/AdvReac Type Severity Reaction Status Date / Time adhesive Allergy ITCHING/RED Verified 03/02/20 14:12 DNESS cephalexin monohydrate Allergy Nausea & Verified 03/02/20 14:12 [From Keflex] Vomiting erythromycin base Allergy "I Verified 03/02/20 14:12 COULDN'T BREATHE" morphine Allergy Nausea & Verified 03/02/20 14:12 Vomiting nystatin Allergy Nausea & Verified 03/02/20 14:12 Vomiting sulfamethoxazole Allergy LIGHTHEADEDNESS, Verified 03/02/20 14:12 [From Septra] VOMITING trimethoprim [From Septra] Allergy LIGHTHEADEDNESS, Verified 03/02/20 14:12 VOMITING codeine AdvReac Nausea & Verified 03/02/20 14:12 Vomiting ibuprofen [From Motrin] AdvReac Diarrhea Verified 03/02/20 14:12 Physical Exam Vitals: Vital Signs Temp Pulse Pulse Resp BP BP Pulse Ox 03/03/20 09:00 98.3 F 64 16 137/81 98 03/03/20 03:00 97.8 F 89 18 123/69 92 L 03/02/20 20:44 73 18 03/02/20 20:41 98.3 F 73 18 133/84 98 03/02/20 16:44 67 16 149/88 99 03/02/20 15:48 68 16 157/89 100 Intake and Output 03/02/20 03/03/20 03/03/20 22:59 06:59 14:59 Other: Voiding Method Toilet Toilet Toilet # Voids 2 2 2 Weight 107.048 kg Results 03/02/20 14:43 03/02/20 14:52 Cardiac Enzymes 03/02/20 03/02/20 03/02/20 Range/Units 14:52 14:52 17:33 AST 33 (14-36) U/L Troponin I <0.012 <0.012 (0.000-0.034) ng/mL 03/02/20 Range/Units 21:03 AST (14-36) U/L Troponin I <0.012 (0.000-0.034) ng/mL Coagulation 03/02/20 Range/Units 14:52 PT 10.0 (9.0-12.0) sec APTT 23.1 (22.0-30.0) sec CBC 03/02/20 Range/Units 14:43 WBC 9.1 (3.8-10.6) k/uL RBC 4.48 (3.80-5.40) m/uL Hgb 14.1 (11.4-16.0) gm/dL Hct 42.6 (34.0-46.0) % Plt Count 171 (150-450) k/uL Comprehensive Metabolic Panel 03/02/20 Range/Units 14:52 Sodium 141 (137-145) mmol/L Potassium 4.5 (3.5-5.1) mmol/L Chloride 111 H (98-107) mmol/L Carbon Dioxide 20 L (22-30) mmol/L BUN 16 (7-17) mg/dL Creatinine 0.71 (0.52-1.04) mg/dL Glucose 137 H (74-99) mg/dL Calcium 9.8 (8.4-10.2) mg/dL AST 33 (14-36) U/L ALT 20 (4-34) U/L Alkaline Phosphatase 76 (38-126) U/L Total Protein 7.0 (6.3-8.2) g/dL Albumin 4.2 (3.5-5.0) g/dL Intake and Output 03/02/20 03/03/20 03/03/20 22:59 06:59 14:59 Other: Voiding Method Toilet Toilet Toilet # Voids 2 2 2 Weight 107.048 kg 03/02/20 14:43 03/02/20 14:52
--- NOTE | 2020-03-03 15:56 | P.DS ---
Providers Date of admission: 03/02/20 16:15 Expected date of discharge: 03/03/20 Attending physician: Raymond Salmon Consults: 03/02/20 18:12 Consult Physician Routine Consulting Provider: Obey Jain Consult Reason/Comments: chest pain Do you want consulting provider notified?: Yes 03/02/20 19:56 Consult Physician Routine Consulting Provider: Gerber Khan Consult Reason/Comments: severe anxiety/insonia Do you want consulting provider notified?: Yes Primary care physician: [facility] Course: Chief Complaint: palpitation History of presenting complaint: This is a pleasant 65-year-old patient of Dr. Damian. Chronic stable medical conditions include asthma, diabetes, hypertension and tumor of the right parotid gland. Patient's had recurrent UTI and is due to see Dr. reyes from urology. Patient about 3 weeks ago was prescribed 50 mg of hydrochlorothiazide by PCP. Patient had been taking the same. She made 2 visits to the ER 1 February 15 and 1 on February 21. Both occasions she had a urine done that both came back infected appearing. Urine cultures on both occasions were negative. Patient was sent home with antibiotics. Patient started feeling dizzy diet unwell week. One of the resistant the ER her potassium came back at 2.7. She was discharged home on potassium supplement. Patient felt some of her symptoms are coming from Remeron that she been taking for many years. For depression. In the meantime patient is becoming very anxious. Decreased appetite or sleeping. On this occasion she presents with heart pounding some chest pressure anxious dizzy lightheaded. Given for the same. Blood pressure presentation was over 140 systolic. Patient has stopped taking her diuretic. A lower dose of diuretic was prescribed last week. She is not taking the same. It was felt that patient be admitted with uncontrolled anxiety symptoms. Not compatible with cardiac presentation. Chlorthalidone was started. Blood pressure well controlled. Patient is put on Remeron half the dose of what she used to take before. Slept a good few hours. Today morning feeling well. Discussed with Dr. Jain from cardiology. He'll follow as an outpatient. Care was discussed with the patient. Patient is changing PCP to Dr. Lux Buchanan. And was to follow-up with him upon discharge. Discussion and discharge planning more than 35 minutes Consultation: Dr. Jain from cardiology Physical examination: VITAL SIGNS: 98.3, 64, 16, 137/81, 98% room air GENERAL: 35.9, laying in bed, slightly anxious. EYES: Pupils equal. Conjunctiva normal. HEENT: External appearance of nose and ears normal, oral cavity grossly normal. NECK: JVD not raised; masses not palpable. HEART: First and second heart sounds are normal; no edema. LUNGS: Respiratory rate normal; clear to auscultation. ABDOMEN: Soft, nontender, liver spleen not palpable, no masses palpable. PSYCH: Alert and oriented x3; mood and affect normal MUSCULAR skeletal: Evidence of OA. NEUROLOGICAL: Cranial nerves grossly intact; no facial asymmetry, power and sensation grossly intact. LYMPHATICS: No lymph nodes palpable in the axilla and neck INVESTIGATIONS, reviewed in the clinical context: White count 9.1 hemoglobin 14.1 platelets 171 potassium 4.5 creatinine 0.79 Troponin I is less than 0.0122 EKG tracing personally reviewed by me-sinus rhythm Assessment: -Anxiety disorder uncontrolled -Atypical chest pain. Rule out arrhythmia on telemetry. Will he stress test at some point -Essential hypertension -Obesity BMI 35.9 -Chronic insomnia multifactorial -Intermittent asthma - Disposition: Home Patient Condition at Discharge: Stable Plan - Discharge Summary Discharge Rx Participant: No New Discharge Prescriptions: New Chlorthalidone [Hygroton] 25 mg PO DAILY #30 tab Mirtazapine [Remeron] 15 mg PO HS #30 tab Continue Omeprazole [PriLOSEC] 20 mg PO SUWE Losartan [Cozaar] 50 mg PO DAILY L.acidoph,Paracasei, B.lactis [Probiotic] 1 cap PO DAILY Discharge Medication List Omeprazole [PriLOSEC] 20 mg PO SUWE 12/06/16 [History] Losartan [Cozaar] 50 mg PO DAILY 01/25/20 [History] L.acidoph,Paracasei, B.lactis [Probiotic] 1 cap PO DAILY 03/02/20 [History] Chlorthalidone [Hygroton] 25 mg PO DAILY #30 tab 03/03/20 [Rx] Mirtazapine [Remeron] 15 mg PO HS #30 tab 03/03/20 [Rx] Follow up Appointment(s)/Referral(s): dr MARIA DE JESUS [Other] - 10 Days (Please call to schedule appointment.) Obey Jain DO [STAFF PHYSICIAN] - 1 Week (Please call [facility] to schedule appointment. Appointment to be made with Dr Jain or Dr Gilliam if office states you are already established with Dr Gilliam.) Lux Buchanan MD [STAFF PHYSICIAN] - 1 Week (Please call office to schedule follow up appointment) Patient Instructions/Handouts: Heart Palpitations (GEN) Activity/Diet/Wound Care/Special Instructions: bmp - 5 days Discharge Disposition: HOME SELF-CARE
== END 2020-03-03 13:37 | disposition home or self-care (01) ==
LOC: EC 13:55 → 3NCARDOBS 16:15
PROVIDERS: ADMIT Hospitalist; ATTEND Hospitalist
DX: F41.9 Anxiety disorder, unspecified (principal); R07.89 Other chest pain; I10 Essential (primary) hypertension; E66.9 Obesity, unspecified; F51.04 Psychophysiologic insomnia; J45.20 Mild intermittent asthma, uncomplicated; E11.9 Type 2 diabetes mellitus without complications; K30 Functional dyspepsia; F32.9 Major depressive disorder, single episode, unspecified; T43.026A Underdosing of tetracyclic antidepressants, initial encounter; R94.31 Abnormal electrocardiogram [ECG] [EKG]; Z91.128 Patient's intentional underdosing of medication regimen for other reason; Z79.899 Other long term (current) drug therapy; Z91.09 Other allergy status, other than to drugs and biological substances; Z88.1 Allergy status to other antibiotic agents; Z88.5 Allergy status to narcotic agent; Z88.8 Allergy status to other drugs, medicaments and biological substances; Z88.2 Allergy status to sulfonamides; Z88.6 Allergy status to analgesic agent; Z87.19 Personal history of other diseases of the digestive system; Z98.890 Other specified postprocedural states; Z90.49 Acquired absence of other specified parts of digestive tract; Z90.710 Acquired absence of both cervix and uterus; Z90.89 Acquired absence of other organs; Z98.41 Cataract extraction status, right eye; Z98.42 Cataract extraction status, left eye; Z68.35 Body mass index [BMI] 35.0-35.9, adult; Z87.440 Personal history of urinary (tract) infections
CPT/HCPCS: 93005 ×2; 96372; 96374; 99285; 36415; 80053; 84443; 83735; 84484; 85025; 85610; 85730; 71046; G0378 ×2; J2405; J1650

== ENCOUNTER → 2020-03-28 | Outpatient (CLI) | payer MEDICARE ==
--- NOTE | 2020-03-28 16:11 | US ---
EXAMINATION TYPE: US kidneys/renal and bladder DATE OF EXAM: 03/28/2020 COMPARISON: CT abdomen and pelvis May 17, 2019 CLINICAL HISTORY: R31.9 hematuria. recurrent UTI's EXAM MEASUREMENTS: Right Kidney: 10.8 x 5.2 x 4.7 cm Left Kidney: 11.2 x 5.8 x 5.4 cm Right Kidney: no evidence of hydronephrosis Left Kidney: no evidence of hydronephrosis Bladder: appears wnl Bilateral Jets seen: yes There is no evidence for hydronephrosis at this point in time. No nephrolithiasis is seen. No he s are identified. The urinary bladder is satisfactorily distended. Bilateral ureteral jets are seen . IMPRESSION: Source of hematuria not identified. If symptoms persist further investigation with CT uro gram may be warranted.
== END | disposition home or self-care (01) ==
LOC: RADUSWWP 15:36
PROVIDERS: ATTEND Urology
DX: R31.9 Hematuria, unspecified (principal)
CPT/HCPCS: 76770

== ENCOUNTER → 2020-09-25 | Outpatient (CLI) | payer MEDICARE ==
--- NOTE | 2020-09-26 13:21 | MM ---
Reason for exam: additional evaluation requested from prior study. Last mammogram was performed 8 months ago. History: Patient is postmenopausal and has history of high-risk lesion on a previous biopsy at age 61. High risk MG stereo VAD BX LT of the left breast, December 09, 2016. Excisional biopsy of the left breast, April 18, 2007. Took estrogen for 3 years beginning at age 43. Took progesterone for 3 years beginning at age 43. Physical Findings: Nurse did not find any significant physical abnormalities on exam. MG 3D Diag Mammo W/Cad RT CC, MLO, and LM view(s) were taken of the right breast. Prior study comparison: January 14, 2020, bilateral MG 3d diag mammo w/cad [facility]. August 03, 2019, left breast MG 3d diag mammo w/cad LT. December 01, 2018, bilateral MG screening mammo w CAD. November 15, 2017, bilateral MG screening mammo w CAD. No significant new findings when compared with previous films. These results were verbally communicated with the patient and result sheet given to the patient on 09/25/20. ASSESSMENT: Benign, BI-RAD 2 RECOMMENDATION: Routine screening mammogram of both breasts in 3 months. Back on schedule for December 2020.
--- NOTE | 2020-09-26 13:23 | USB ---
Reason for exam: follow-up at short interval from prior study. History: Patient is postmenopausal and has history of high-risk lesion on a previous biopsy at age 61. High risk MG stereo VAD BX LT of the left breast, December 09, 2016. Excisional biopsy of the left breast, April 18, 2007. Took estrogen for 3 years beginning at age 43. Took progesterone for 3 years beginning at age 43. US Breast Limited LT Left limited breast ultrasound including focal area of concern, retroareolar and axilla demonstrates a 3 x 2 x 3mm oval, cystic lesion at 2 o'clock, unchanged from previous. These results were verbally communicated with the patient and result sheet given to the patient on 09/25/20. ASSESSMENT: Benign, BI-RAD 2 RECOMMENDATION: Routine screening mammogram of both breasts in 3 months. Back on schedule for December 2020.
== END | disposition home or self-care (01) ==
LOC: RADMAMWWP 14:54
PROVIDERS: ATTEND Surgery
DX: R92.8 Other abnormal and inconclusive findings on diagnostic imaging of breast (principal); Z78.0 Asymptomatic menopausal state
CPT/HCPCS: 77065; 76642; G0279; 77061

== ENCOUNTER → 2020-10-10 | Outpatient (CLI) | payer MEDICARE ==
[2020-10-10 13:37] VITALS: BP 149/66; PULSE 98; RESP 18; TEMP 98.4
--- NOTE | 2020-10-10 13:47 | P.PN ---
Subjective Progress Note Date: 10/10/20 Principal diagnosis: fibrocystic breast changes fibrocystic breast changes Floresita is a 65-year-old white female who in 2016 had a core biopsy of the left breast which revealed a small intraductal papilloma. She did not have excision of the lesion and has been followed conservatively. She has been followed radiographically since that time. On 12-01-18 she had a bilateral mammogram and nodularity was noted adjacent to the 3:00 left breast microclip which appeared more defined. Six-month follow-up was recommended. Six-month follow-up was performed in July 2019 at that time the breast tissue was noted to be heterogeneously dense and no discrete lesion was noted. However, the recommendation was for the patient to be evaluated by a surgeon secondary to the fact that an intraductal papilloma had been identified in 2018 and no resection had been performed. She was seen here at that time and recommendation was for conservative follow-up. The patient did not feel anything of concern in her breast. The patient was not having any nipple discharge of concern. The area of core biopsy was approximately 3 o'clock position of the left breast. She had a bilateral mammogram on this was considered a BIRADS 3 and repeat right breast mammogram in 6 months was recommended. The left side appeared to be stable on mammogram. However She had an ultrasound of the left breast performed on the same day and repeat ultrasound of the left breast in 6 months was recommended. It revealed a 0.3 x 0.3 circular lesion at 2:00. Recommend patient have a right breast mammogram in 6 months secondary to some microcalcifications that were seen. Therefore the radiographic evaluation at this time was for repeat left breast ultrasound and repeat right breast mammogram in 6 months. A right breast mammogram and a left breast ultrasound were preformed on 09-25-20. Both were felt to be benign BIRAD 2 and bilateral mammogram in 3 months back on schedule were recommended. The patient at this time does not feel any new lumps masses or nodules of conc farooq in either breast. She does not complain of any breast pain. She is not complaining of nipple discharge or skin changes. Caffeine: none smoke: none Theophylline: Several times a month/patient is diabetic Hormone: none Milk: Patient drinks several glasses a day no hormones or supplements Family History: adopted does not know family history Hormonal History: menarche: 12 , 1 , age at first : 25, breast fed: no Menopause: hysterectomy at 49 for fibroids took ovaries BCP: 4 years hormones: after hysterectomy for two years Surgical History: 1. Hysterectomy with bilateral salpingo-oophorectomy 2. Cholecystectomy 3. Right groin hernia 4. 5 eye surgeries 6. Tonsillectomy 7. two C sections 8. right parotid resection Medical History: 1. diabetic diet controlled 2. UTI's 3. asthma Social History: smoke: none alcohol: rare drugs: none - Constitutional Constitutional: Denies chills, Denies fever - EENT Eyes: denies blurred vision, denies pain Ears: left: tinnitus, deny: decreased hearing Ears, nose, mouth and throat: Denies headache, Denies sore throat - Breasts Breasts: bilateral: as per HPI - Cardiovascular Cardiovascular: Reports high blood pressure, Denies chest pain, Denies shortness of breath - Respiratory Respiratory: Denies cough, asthma - Gastrointestinal Comment: PUD Gastrointestinal: Denies abdominal pain, Denies diarrhea, Denies nausea, Denies vomiting - Genitourinary (Female) Comment: frequant UTI - Menstruation Menstruation: Reports post hysterectomy - Musculoskeletal Comment: arthritis Musculoskeletal: Denies myalgias - Integumentary Integumentary: Denies pruritus, Denies rash - Neurological Neurological: Denies numbness, Denies weakness - Psychiatric Psychiatric: Reports depression, Denies anxiety - Endocrine Comment: diabetes - Hematologic/Lymphatic Comment: none - Allergic/Immunologic Allergic/Immunologic: Reports as per HPI, Reports seasonal allergies Objective - Constitutional General appearance: Present: average body habitus - EENT Eyes: Present: EOMI ENT: Present: hearing grossly normal - Neck Neck: Present: normal ROM - Respiratory Respiratory: bilateral: CTA - Cardiovascular Rhythm: regular Heart sounds: normal: S1, S2 - Integumentary Integumentary: Present: normal turgor - Musculoskeletal Musculoskeletal: Present: gait normal - Psychiatric Psychiatric: Present: A&O x's 3, appropriate affect, intact judgment & insight - Additional findings Additional findings: Breast exam: BRA: 48B inspection: bilateral grade 2/3 ptosis palpation: Breasts: Multiple positional exam no dominant masses or nodules of concern Right axilla: No adenopathy of concern left breast: Multiple positional exam fibrocystic changes no dominant masses or nodules of concern Left axilla: No adenopathy concern Assessment and Plan Assessment: Impression: 1. fibrocystic breast changes 2. left breast intraductal papilloma being followed since 2019 Plan: 1. Bilateral mammogram in 3 months and follow up at time CC: Dr. Buchanan
== END ==
LOC: LABWHC1 13:21
PROVIDERS: ATTEND Surgery
DX: N60.12 Diffuse cystic mastopathy of left breast (principal); D24.2 Benign neoplasm of left breast; J45.909 Unspecified asthma, uncomplicated; E11.9 Type 2 diabetes mellitus without complications; F32.9 Major depressive disorder, single episode, unspecified

== ENCOUNTER → 2021-01-15 | Outpatient (CLI) | payer MEDICARE ==
--- NOTE | 2021-01-16 11:54 | MM ---
Reason for exam: screening (asymptomatic). Last mammogram was performed 4 months ago. History: Patient is postmenopausal and has history of high-risk lesion on a previous biopsy at age 61. High risk MG stereo VAD BX LT of the left breast, December 09, 2016. Excisional biopsy of the left breast, April 18, 2007. Took estrogen for 3 years beginning at age 43. Took progesterone for 3 years beginning at age 43. Physical Findings: A clinical breast exam by your physician is recommended on an annual basis and results should be correlated with mammographic findings. MG 3D Screening Mammo W/Cad Bilateral CC and MLO view(s) were taken. Prior study comparison: September 25, 2020, right breast MG 3d diag mammo w/cad RT. January 14, 2020, bilateral MG 3d diag mammo w/cad [facility]. December 01, 2018, bilateral MG screening mammo w CAD. November 15, 2017, bilateral MG screening mammo w CAD. There are scattered fibroglandular densities. Finding: There are stable round, grouped/clustered calcifications in the upper outer quadrant, middle position and another group is in the outer posterior left breast, stable. Previous mammotome biopsy in the left breast. There is a chronic nodularity in the right breast. No significant changes in finding since September 25, 2020, January 14, 2020, December 01, 2018, and November 15, 2017. ASSESSMENT: Benign, BI-RAD 2 RECOMMENDATION: Routine screening mammogram of both breasts in 1 year.
== END | disposition home or self-care (01) ==
LOC: RADMAMWWP 12:51
PROVIDERS: ATTEND Surgery
DX: Z12.31 Encounter for screening mammogram for malignant neoplasm of breast (principal); Z78.0 Asymptomatic menopausal state; Z79.818 Long term (current) use of other agents affecting estrogen receptors and estrogen levels
CPT/HCPCS: 77063; 77067

== ENCOUNTER → 2021-04-16 | Outpatient (CLI) | payer MEDICARE ==
--- NOTE | 2021-04-16 17:00 | CT ---
EXAMINATION TYPE: CT urogram wo/w con DATE OF EXAM: 04/16/2021 COMPARISON: 05/17/2019 HISTORY: Right flank pain CT DLP: 2633 mGycm CONTRAST: Performed and without and with IV Contrast, patient injected with 100 mL of Isovue 300. CT Urography was performed with unenhanced followed by enhanced images of the kidneys, ureters and ur inary bladder. Delayed images were obtained. 3d reconstruction was performed at a separate work sta tion. FINDINGS: KIDNEYS/BLADDER: No hydronephrosis. No nephrolithiasis. No distinct renal mass. Urinary bladder gr ossly unremarkable. LUNG BASES-: No visible nodule. No infiltrate. LIVER/GB: The gallbladder is surgically absent. No space occupying hepatic lesion. Biliary tree is of normal caliber. PANCREAS: No inflammation. No distinct mass. SPLEEN: No splenic enlargement. No lesion seen. ADRENALS: No nodule. No thickening. BOWEL: Normal appendix. Normal bowel caliber. No inflammation. GENITAL ORGANS: No gross abnormality. LYMPH NODES: No greater than 1cm abdominal or pelvic lymph nodes are appreciated. AORTA: No significant abnormality. OSSEOUS STRUCTURES: No significant abnormality is seen. OTHER: No significant additional abnormality is seen. IMPRESSION: 1. No significant abnormality to account for the patient's symptoms of microscopic hematuria.
== END | disposition home or self-care (01) ==
LOC: RADCTMAIN 13:47
PROVIDERS: ATTEND Urology
DX: R10.9 Unspecified abdominal pain (principal)
CPT/HCPCS: 82565; 84520; 74178; 36415; 74400; Q9967

== ENCOUNTER → 2022-01-18 | Outpatient (CLI) | payer MEDICARE ==
--- NOTE | 2022-01-19 09:31 | MM ---
Reason for Exam: Screening (asymptomatic). Last screening mammogram was performed 12 month(s) ago. Patient History: Menarche at age 12. First Full-Term at age 26. Left ovary removed at age 43. Right ovary removed at age 43. Hysterectomy at age 43. Postmenopausal. Estrogen for 3 years from age 43 until age 46. Progesterone for 3 years from age 43 until age 46. 04/18/2007, Excisional Biopsy on the Left side. 12/09/2016, High risk Core Biopsy on the left side. Risk Values: Ankita 5 year model risk: 2.8%. NCI Lifetime model risk: 9.9%. Prior Study Comparison: 12/09/1994 Screening Mammogram, Unknown. 05/13/2014 Bilateral Screening Mammogram, [facility]. 11/10/2016 Bilateral Screening Mammogram, [facility]. 11/15/2017 Bilateral Screening Mammogram, [facility]. 01/14/2020 Bilateral Diagnostic Mammogram, [facility]. 09/25/2020 Right Diagnostic Mammogram, [facility]. 01/15/2021 Bilateral Screening Mammogram, [facility]. Tissue Density: There are scattered fibroglandular densities. Findings: Analyzed By CAD. A biopsy clip is seen on the left with bilateral benign-appearing calcifications. There is nodularity in the upper outer margin of the left breast. Increase in size of nodularity in the central upper margin of the right breast. Additional stable bilateral chronic nodularity. Overall Assessment: Incomplete: need additional imaging evaluation, BI-RAD 0 Management: Diagnostic Mammogram of both breasts. A clinical breast exam by your physician is recommended on an annual basis and results should be correlated with mammographic findings. Electronically signed and approved by: Lux Peters M.D. Radiologis
== END | disposition home or self-care (01) ==
LOC: RADMAMWWP 13:32
PROVIDERS: ATTEND Surgery
DX: Z12.31 Encounter for screening mammogram for malignant neoplasm of breast (principal); Z78.0 Asymptomatic menopausal state
CPT/HCPCS: 77063; 77067

== ENCOUNTER → 2022-01-21 | Outpatient (CLI) | payer MEDICARE ==
--- NOTE | 2022-01-21 14:41 | USB ---
Reason for Exam: Additional evaluation requested from abnormal screening. Patient History: Menarche at age 12. First Full-Term at age 26. Left ovary removed at age 43. Right ovary removed at age 43. Hysterectomy at age 43. Postmenopausal. Estrogen for 3 years from age 43 until age 46. Progesterone for 3 years from age 43 until age 46. 04/18/2007, Excisional Biopsy on the Left side. 12/09/2016, High risk Core Biopsy on the left side. Risk Values: Ankita 5 year model risk: 2.8%. NCI Lifetime model risk: 9.9%. Technique: Method: Targeted. Prior Study Comparison: 09/25/2020 Right Diagnostic Mammogram, [facility]. 01/15/2021 Bilateral Screening Mammogram, [facility]. 01/18/2022 Bilateral MG 3D screening mammo w/cad, [facility]. Findings: The upper section of the breast of the right breast, the lateral section of the breast of the left breast, the axilla of both breasts and the retroareolar of both breasts were scanned. Targeted scanning right breast 11-1 o'clock as well as the axilla shows a 5 x 4 x 4 mm benign cyst 11:00, mammographic correlate. No other solid or cystic lesion. Targeted scanning of the left breast, 3-4 o'clock as well as the axilla shows a tiny 3 x 3 x 2 mm benign cyst. This is located at 3:00, 6 cm from the nipple, mammographic correlate. No other solid or cystic lesion.. Overall Assessment: Benign, BI-RAD 2 Management: Screening Mammogram of both breasts in 1 year. 1. Patient should continue monthly self breast exams. 2. A clinical breast exam by your physician is recommended on an annual basis. 3. This exam should not preclude additional follow-up of suspicious palpable abnormalities. Electronically signed and approved by: Carmen Quintana M.D. Radiologist
== END | disposition home or self-care (01) ==
LOC: RADMAMWWP 13:40
PROVIDERS: ATTEND Surgery
DX: R92.8 Other abnormal and inconclusive findings on diagnostic imaging of breast (principal)

== ENCOUNTER → 2022-01-22 | Outpatient (CLI) | payer MEDICARE ==
[2022-01-22 14:34] VITALS: BP 147/85; PULSE 91; RESP 18; TEMP 98.9
--- NOTE | 2022-01-22 14:52 | P.PN ---
Subjective Progress Note Date: 01/22/22 Principal diagnosis: Fibrocystic breast changes/known intraductal papilloma followed conservatively fibrocystic breast changes Floresita is a 66-year-old white female who in 2017 had a core biopsy of the left breast which revealed a small intraductal papilloma. She did not have excision of the lesion and has been followed conservatively. She has been followed radiographically since that time. On 12-01-18 she had a bilateral mammogram and nodularity was noted adjacent to the 3:00 left breast microclip which appeared more defined. Six-month follow-up was recommended. Six-month follow-up was performed in July 2019 at that time the breast tissue was noted to be heterogeneously dense and no discrete lesion was noted. However, the recommendation was for the patient to be evaluated by a surgeon secondary to the fact that an intraductal papilloma had been identified in 2018 and no resection had been performed. She was seen here at that time and recommendation was for conservative follow-up. Her most recent mammogram was on 01-18-22 which resulted in a bilateral ultrasound. The ultrasud was done on 01-21-22. The recommendation was for a bilateral mammogram in 1 year. Not complaining of any new lumps masses or nodules of concern in either breast. The patient has been on premarin for two years related to UTI's she feels much better. Caffeine: none smoke: none Theophylline: Several times a month/patient is diabetic Hormone: none Milk: Patient drinks several glasses a day no hormones or supplements Family History: adopted does not know family history Hormonal History: menarche: 12 , 1 , age at first : 25, breast fed: no Menopause: hysterectomy at 49 for fibroids took ovaries BCP: 4 years hormones: after hysterectomy for two years Surgical History: 1. Hysterectomy with bilateral salpingo-oophorectomy 2. Cholecystectomy 3. Right groin hernia 4. 5 eye surgeries 6. Tonsillectomy 7. two C sections 8. right parotid resection Medical History: 1. diabetic diet controlled 2. UTI's stopped 3. asthma Social History: smoke: none alcohol: rare drugs: none - Constitutional Constitutional: Denies chills, Denies fever - EENT Eyes: denies blurred vision, denies pain Ears: left: tinnitus, deny: decreased hearing Ears, nose, mouth and throat: Denies headache, Denies sore throat - Breasts Breasts: bilateral: as per HPI - Cardiovascular Cardiovascular: Reports high blood pressure, Denies chest pain, Denies shortness of breath - Respiratory Respiratory: Denies cough, asthma - Gastrointestinal Comment: PUD Gastrointestinal: Denies abdominal pain, Denies diarrhea, Denies nausea, Denies vomiting - Genitourinary (Female) Comment: frequant UTI - Menstruation Menstruation: Reports post hysterectomy - Musculoskeletal Comment: arthritis Musculoskeletal: Denies myalgias - Integumentary Integumentary: Denies pruritus, Denies rash - Neurological Neurological: Denies numbness, Denies weakness - Psychiatric Psychiatric: Reports depression, Denies anxiety - Endocrine Comment: diabetes - Hematologic/Lymphatic Comment: none - Allergic/Immunologic Allergic/Immunologic: Reports as per HPI, Reports seasonal allergies Objective - Vital Signs Vital signs: Vital Signs Temp 98.9 F 01/22/22 14:32 Pulse 91 01/22/22 14:32 Resp 18 01/22/22 14:32 BP 147/85 01/22/22 14:32 Pulse Ox 97 01/22/22 14:32 FiO2 Intake & Output 01/21/22 01/22/22 01/22/22 18:59 06:59 18:59 Weight 111.13 kg - Exam BMI: 37.3 - Constitutional General appearance: Present: cooperative - EENT Eyes: Present: EOMI ENT: Present: hearing grossly normal - Neck Neck: Present: normal ROM - Respiratory Respiratory: bilateral: CTA - Cardiovascular Rhythm: regular Heart sounds: normal: S1, S2 - Gastrointestinal General gastrointestinal: Present: soft - Integumentary Integumentary: Present: normal turgor - Musculoskeletal Musculoskeletal: Present: gait normal - Psychiatric Psychiatric: Present: A&O x's 3, appropriate affect, intact judgment & insight - Additional findings Additional findings: Breast Exam: BRA: 50B inspection: Bilateral grade 2/3 ptosis Palpation: Right breast: Multi-positional exam fibrocystic changes no dominant masses or nodules of concern Right axilla: No adenopathy of concern Left breast: Multiple positional exam fibrocystic changes, slight fullness in the upper outer quadrant nothing which would warrant interventional biopsy at this time Left axilla: No adenopathy of concern Assessment and Plan Assessment: Impression: Fibrocystic breast changes Known intraductal papilloma on core biopsy of the left breast in 2017 which is been followed conservatively Bilateral mammogram and ultrasound December 2021 benign BIRADS 2 Plan: Bilateral mammogram in 1 year with physician exam at that time Patient to follow up sooner any questions or concerns CC: Dr. Buchanan
== END ==
LOC: WWCWWP 14:13
PROVIDERS: ATTEND Surgery
DX: N60.11 Diffuse cystic mastopathy of right breast (principal); N60.12 Diffuse cystic mastopathy of left breast; D24.2 Benign neoplasm of left breast; E11.9 Type 2 diabetes mellitus without complications; J45.909 Unspecified asthma, uncomplicated; Z91.048 Other nonmedicinal substance allergy status; Z88.1 Allergy status to other antibiotic agents; Z91.041 Radiographic dye allergy status; Z88.2 Allergy status to sulfonamides; Z88.5 Allergy status to narcotic agent; Z88.6 Allergy status to analgesic agent

== ENCOUNTER → 2022-02-08 | Outpatient (CLI) | payer MEDICARE ==
--- NOTE | 2022-02-08 17:08 | US ---
EXAMINATION TYPE: US venous doppler duplex LE RT DATE OF EXAM: 02/08/2022 4:57 PM COMPARISON: NONE CLINICAL HISTORY: R60.0 Edema of lower extremity RLE. Edema and pain in right leg. No hx of DVT. Heidi ent does not take blood thinners. SIDE PERFORMED: Right TECHNIQUE: The lower extremity deep venous system is examined utilizing real time linear array sonog sandra with graded compression, doppler sonography and color-flow sonography. VESSELS IMAGED: Common Femoral Vein Deep Femoral Vein Greater Saphenous Vein * Femoral Vein Popliteal Vein Small Saphenous Vein * Proximal Calf Veins (* superficial vessels) Right Leg: No evidence of DVT in veins imaged at this time. Slightly limited due to edema. IMPRESSION: No sign of deep vein thrombosis in the right leg
== END | disposition home or self-care (01) ==
LOC: RADUSWWP 16:15
PROVIDERS: ATTEND Family Medicine
DX: R60.0 Localized edema (principal)

== ENCOUNTER → 2022-09-13 | Outpatient (CLI) | payer MEDICARE ==
--- NOTE | 2022-09-13 15:52 | CT ---
EXAMINATION TYPE: CT sinus wo con DATE OF EXAM: 09/13/2022 COMPARISON: None HISTORY: 65-year-old female G50.1, atypical facial pain CT DLP: 648.7 mGycm Automated exposure control for dose reduction was used. TECHNIQUE: Noncontrast axial views of the paranasal sinuses were obtained. Coronal and sagittal refor matted images were obtained from the axial views for evaluation of nasal cavity, osteomeatal complex and skull base integrity. FINDINGS: PARANASAL SINUSES: The frontal, ethmoid, maxillary and sphenoid sinuses are clear and well pneumatized. There is no mucosal thickening or air-fluid level. Reactive toney- osteogenesis is not seen. There is no destruction of the osseous guaman of the paranasal sinuses. THE NASAL CAVITY: The osteomeatal complexes are patent. Slight rightward nasal septal deviation. There is moderate volume loss overlying the bilateral cerebral convexities. Calcified extra-axial nod ularity superior left frontal region measuring 1.1 cm. This could represent a small meningioma. Other bustos, visualized intracranial structures and orbits/globes appear clear. Left greater than right TMJ OA. Mastoid air cells and middle ear cavities are well pneumatized. Reformatted images confirm above findings. IMPRESSION: Slight rightward nasal septal deviation. No significant paranasal sinus disease seen. Lef t greater than right TMJ OA.
== END | disposition home or self-care (01) ==
LOC: RADCTMAIN 14:08
PROVIDERS: ATTEND Otolaryngology
DX: J34.2 Deviated nasal septum (principal); M26.641 Arthritis of right temporomandibular joint; G50.1 Atypical facial pain
CPT/HCPCS: 70486

== ENCOUNTER 2022-11-15 12:33 | Observation (INO) | payer MEDICARE ==
[2022-11-15] MEDS ORDERED: ASPIRIN 81 MG PO STA (12:55)
[2022-11-15] MEDS ORDERED: NITROGLYCERIN OINT 1 INCH/GM PACKET TOPICAL STA (12:55)
--- NOTE | 2022-11-15 12:57 | ED ---
General Adult HPI - General Chief complaint: Chest Pain Stated complaint: Chest pain Time Seen by Provider: 11/15/22 12:40 Source: patient, RN notes reviewed, old records reviewed Mode of arrival: ambulatory Limitations: no limitations - History of Present Illness Initial comments: This is a 67-year-old female with past medical history significant for diet- controlled diabetes and high blood pressure. Patient comes in today because she's been expiration chest pain for the last 2 weeks. Patient states it normally lasts 1520 minutes but occasionally it lasts an hour. Patient states that it was a little bit worse that she decided to come to the emergency department. Patient states she's also been very short of breath with exertion particularly at the stairs. Denies any recent fever chills or cough per patient denies abdominal pain patient denies vomiting diarrhea. Patient states she has also been getting palpitations. - Related Data Home Medications Medication Instructions Recorded Confirmed Omeprazole [PriLOSEC] 20 mg PO SUWE 12/06/16 01/22/22 Losartan [Cozaar] 50 mg PO DAILY 01/25/20 01/22/22 L.acidoph,Paracasei, B.lactis 1 cap PO DAILY 03/02/20 01/22/22 [Probiotic] Estrogens, Conjugated Cream 1 applicator VAGINAL WEEKLY 01/22/22 01/22/22 [Premarin Vaginal Cream] Previous Rx's Medication Instructions Recorded Mirtazapine [Remeron] 15 mg PO HS #30 tab 03/03/20 Allergies Allergy/AdvReac Type Severity Reaction Status Date / Time adhesive Allergy ITCHING/RED Verified 11/15/22 13:48 DNESS cephalexin monohydrate Allergy Nausea & Verified 11/15/22 13:48 [From Keflex] Vomiting erythromycin base Allergy "I Verified 11/15/22 13:48 COULDN'T BREATHE" Iodinated Contrast Media Allergy Unknown Verified 11/15/22 13:48 morphine Allergy Nausea & Verified 11/15/22 13:48 Vomiting nystatin Allergy Nausea & Verified 11/15/22 13:48 Vomiting sulfamethoxazole Allergy LIGHTHEADEDNESS, Verified 11/15/22 13:48 [From Septra] VOMITING trimethoprim [From Septra] Allergy LIGHTHEADEDNESS, Verified 11/15/22 13:48 VOMITING codeine AdvReac Nausea & Verified 11/15/22 13:48 Vomiting ibuprofen [From Motrin] AdvReac Diarrhea Verified 11/15/22 13:48 Review of Systems ROS Statement: Those systems with pertinent positive or pertinent negative responses have been documented in the HPI. ROS Other: All systems not noted in ROS Statement are negative. 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 History of Any Multi-Drug Resistant Organisms: None Reported Past Surgical History: Section, Cholecystectomy, Hernia Repair, Hysterectomy, Tonsillectomy Additional Past Surgical History / Comment(s): 7 EYE SX R/T TO MUSCLES, ELFEGO CATARACT Past Anesthesia/Blood Transfusion Reactions: No Reported Reaction Past Psychological History: Depression Smoking Status: Never smoker Past Alcohol Use History: Occasional Past Drug Use History: None Reported - Past Family History Mother Family Medical History: Unable to Obtain Additional Family Medical History / Comment(s): PATIENT ADOPTED General Exam - General Exam Comments Initial Comments: GENERAL: Patient is well-developed and well-nourished. Patient is nontoxic and well- hydrated and is in mild distress. ENT: Neck is soft and supple. No significant lymphadenopathy is noted. Oropharynx is clear. Moist mucous membranes. Neck has full range of motion without eliciting any pain. EYES: The sclera were anicteric and conjunctiva were pink and moist. Extraocular movements were intact and pupils were equal round and reactive to light. Eyelids were unremarkable. PULMONARY: Unlabored respirations. Good breath sounds bilaterally. No audible rales rhonchi or wheezing was noted. CARDIOVASCULAR: There is a regular rate and rhythm without any murmurs gallops or rubs. ABDOMEN: Soft and nontender with normal bowel sounds. SKIN: Skin is clear with no lesions or rashes and otherwise unremarkable. NEUROLOGIC: Patient is alert and oriented x3. Cranial nerves II through XII are grossly in tact. Motor and sensory are also intact. Normal speech, volume and content. Symmetrical smile. MUSCULOSKELETAL: Normal extremities with adequate strength and full range of motion. No lower extremity swelling or edema. No calf tenderness. LYMPHATICS: No significant lymphadenopathy is noted PSYCHIATRIC: Normal psychiatric evaluation. 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 Was pt. sent in by a medical professional or institution (, PA, COMMODITY SUPERVISOR, urgent care, hospital, or penitentiary...) When possible be specific @ -[No] Did you speak to anyone other than the patient for history (EMS, parent, family, police, friend...)? What history was obtained from this source @ -[No] Did you review nursing and triage notes (agree or disagree)? Why? @ -[I reviewed and agree with nursing and triage notes] Were old charts reviewed (outside hosp., previous admission, EMS record, old EKG, old radiological studies, urgent care reports/EKG's, penitentiary records)? Report findings @ -Reviewed prior lab work prior EKGs in this patient. Differential Diagnosis (chest pain, altered mental status, abdominal pain women, abdominal pain men, vaginal bleeding, weakness, fever, dyspnea, syncope, headache, dizziness, GI bleed, back pain, seizure, CVA, palpatations, mental health, musculoskeletal)? @ -Differential Chest Pain: Stable Angina, Unstable Angina, STEMI, NSTEMI Aortic Dissection, Pneumothorax, Musculoskeletal, Esophageal Spasm GERD, Cholecystitis, Pancreatitis, Zoster, this is not meant to be an all-inclusive list. EKG interpreted by me (3pts min.). @ -[As above] X-rays interpreted by me (1pt min.). @ -Chest x-ray shows no acute abnormality and it was interpreted by myself CT interpreted by me (1pt min.). @ -[None done] U/S interpreted by me (1pt. min.). @ -[None done] What testing was considered but not performed or refused? (CT, X-rays, U/S, labs)? Why? @ -[None] What meds were considered but not given or refused? Why? @ -[None] Did you discuss the management of the patient with other professionals (professionals i.e. , ALEXI, COMMODITY SUPERVISOR, lab, RT, psych nurse, nursing home social worker, plywood scarfer tender, teacher, chief credit officer, casey saw operator)? Give summary @ -I spoke with aless[facility] physician's agreed to admit the patient Was smoking cessation discussed for >3mins.? @ -[No] Was critical care preformed (if so, how long)? @ -[No] Were there social determinants of health that impacted care today? How? (Homelessness, low income, unemployed, alcoholism, drug addiction, transportation, low edu. Level, literacy, decrease access to med. care, fci, rehab)? @ -[No] Was there de-escalation of care discussed even if they declined (Discuss DNR or withdrawal of care, Hospice)? DNR status @ -[No] What co-morbidities impacted this encounter? (DM, HTN, Smoking, COPD, CAD, Cancer, CVA, ARF, Chemo, Hep., AIDS, mental health diagnosis, sleep apnea, morbid obesity)? @ -[None] Was patient admitted / discharged? Hospital course, mention meds given and route, prescriptions, significant lab abnormalities, going to OR and other pertinent info. @ -Patient's lab work came back within normal limits. Patient's chest x-ray showed no acute abnormality. Patient was given aspirin and Nitropaste. Patient no significant chest pain throughout her ED course. I spoke with aless[facility] physician's agreed to admit the patient admitted the patient wrote admitting was consulted cardiology. Undiagnosed new problem with uncertain prognosis? @ -[No] Drug Therapy requiring intensive monitoring for toxicity (Heparin, Nitro, Insulin, Cardizem)? @ -[No] Were any procedures done? @ -[No] Diagnosis/symptom? @ -Chest pain Acute, or Chronic, or Acute on Chronic? @ -Acute Uncomplicated (without systemic symptoms) or Complicated (systemic symptoms)? @ -Complicated Side effects of treatment? @ -[No] Exacerbation, Progression, or Severe Exacerbation? @ -[No] Poses a threat to life or bodily function? How? (Chest pain, USA, NV, pneumonia, PE, COPD, DKA, ARF, appy, cholecystitis, CVA, Diverticulitis, Homicidal, Suicidal, threat to staff... and all critical care pts) @ -Yes this could lead to poor perfusion and end organ dysfunction - Lab Data Result diagrams: 11/15/22 13:02 11/15/22 13:02 Lab Results 11/15/22 11/15/22 11/15/22 Range/Units 13:02 13:02 13:02 WBC 7.3 (3.8-10.6) k/uL RBC 4.73 (3.80-5.40) m/uL Hgb 15.1 (11.4-16.0) gm/dL Hct 44.0 (34.0-46.0) % MCV 93.0 (80.0-100.0) fL MCH 31.9 (25.0-35.0) pg MCHC 34.3 (31.0-37.0) g/dL RDW 13.2 (11.5-15.5) % Plt Count 182 (150-450) k/uL MPV 8.8 Neutrophils % 78 % Lymphocytes % 16 % Monocytes % 4 % Eosinophils % 1 % Basophils % 1 % Neutrophils # 5.7 (1.3-7.7) k/uL Lymphocytes # 1.2 (1.0-4.8) k/uL Monocytes # 0.3 (0-1.0) k/uL Eosinophils # 0.1 (0-0.7) k/uL Basophils # 0.0 (0-0.2) k/uL PT 10.2 (9.0-12.0) sec INR 1.0 (<1.2) APTT 22.5 (22.0-30.0) sec Sodium 137 (137-145) mmol/L Potassium 4.6 (3.5-5.1) mmol/L Chloride 103 (98-107) mmol/L Carbon Dioxide 26 (22-30) mmol/L Anion Gap 8 mmol/L BUN 19 H (7-17) mg/dL Creatinine 0.85 (0.52-1.04) mg/dL Est GFR (CKD-EPI)AfAm 82 (>60 ml/min/1.73 sqM) Est GFR (CKD-EPI)NonAf 71 (>60 ml/min/1.73 sqM) Glucose 202 H (74-99) mg/dL Calcium 9.1 (8.4-10.2) mg/dL Magnesium 1.8 (1.6-2.3) mg/dL Total Bilirubin 0.5 (0.2-1.3) mg/dL AST 29 (14-36) U/L ALT 27 (4-34) U/L Alkaline Phosphatase 83 (38-126) U/L Troponin I (0.000-0.034) ng/mL NT-Pro-B Natriuret Pep pg/mL Total Protein 7.2 (6.3-8.2) g/dL Albumin 4.3 (3.5-5.0) g/dL 11/15/22 11/15/22 Range/Units 13:02 13:02 WBC (3.8-10.6) k/uL RBC (3.80-5.40) m/uL Hgb (11.4-16.0) gm/dL Hct (34.0-46.0) % MCV (80.0-100.0) fL MCH (25.0-35.0) pg MCHC (31.0-37.0) g/dL RDW (11.5-15.5) % Plt Count (150-450) k/uL MPV Neutrophils % % Lymphocytes % % Monocytes % % Eosinophils % % Basophils % % Neutrophils # (1.3-7.7) k/uL Lymphocytes # (1.0-4.8) k/uL Monocytes # (0-1.0) k/uL Eosinophils # (0-0.7) k/uL Basophils # (0-0.2) k/uL PT (9.0-12.0) sec INR (<1.2) APTT (22.0-30.0) sec Sodium (137-145) mmol/L Potassium (3.5-5.1) mmol/L Chloride (98-107) mmol/L Carbon Dioxide (22-30) mmol/L Anion Gap mmol/L BUN (7-17) mg/dL Creatinine (0.52-1.04) mg/dL Est GFR (CKD-EPI)AfAm (>60 ml/min/1.73 sqM) Est GFR (CKD-EPI)NonAf (>60 ml/min/1.73 sqM) Glucose (74-99) mg/dL Calcium (8.4-10.2) mg/dL Magnesium (1.6-2.3) mg/dL Total Bilirubin (0.2-1.3) mg/dL AST (14-36) U/L ALT (4-34) U/L Alkaline Phosphatase (38-126) U/L Troponin I <0.012 (0.000-0.034) ng/mL NT-Pro-B Natriuret Pep 149 pg/mL Total Protein (6.3-8.2) g/dL Albumin (3.5-5.0) g/dL Disposition Clinical Impression: Chest pain Disposition: ADMITTED IP TO THIS HOSP Referrals: Lux Buchanan MD [Primary Care Provider] - 1-2 days Time of Disposition: 14:46
[2022-11-15 13:17] LABS: Basophils % (A) 1 %; Eosinophils # (A) 0.1 k/uL (0-0.7); Eosinophils % (A) 1 %; HGB 15.1 gm/dL (11.4-16.0); Lymphocytes # (A) 1.2 k/uL (1.0-4.8); Lymphocytes % (A) 16 %; MCH 31.9 pg (25.0-35.0); MCHC 34.3 g/dL (31.0-37.0); Mean Platelet Volume 8.8; Monocytes # (A) 0.3 k/uL (0-1.0); Monocytes % (A) 4 %; Neutrophils # (A) 5.7 k/uL (1.3-7.7); Neutrophils % (A) 78 %; Platelet Count 182 k/uL (150-450); RBC 4.73 m/uL (3.80-5.40); RDW 13.2 % (11.5-15.5); WBC 7.3 k/uL (3.8-10.6)
[2022-11-15 13:23] LABS: Albumin 4.3 g/dL (3.5-5.0); Calcium 9.1 mg/dL (8.4-10.2); Magnesium 1.8 mg/dL (1.6-2.3); Potassium 4.6 mmol/L (3.5-5.1); Total Bilirubin 0.5 mg/dL (0.2-1.3); Total Protein 7.2 g/dL (6.3-8.2)
--- NOTE | 2022-11-15 13:30 | XR ---
EXAMINATION TYPE: XR chest 2V DATE OF EXAM: 11/15/2022 COMPARISON: 03/02/2020 HISTORY: Shortness of breath TECHNIQUE: Frontal and lateral views of the chest are obtained. FINDINGS: Scattered senescent parenchymal changes noted. Hyperinflation compatible with COPD. No evidence for infiltrate. No evidence for atelectasis. Heart size is stable. Mediastinal structures are stable and grossly unremarkable. No evidence for hilar prominence. Degenerative changes dorsal spine. IMPRESSION: 1. No evidence for acute pulmonary disease.
[2022-11-15] MEDS ORDERED: hydrALAZINE HCL 20 MG/ML 1 ML VIAL IVP STA (13:34)
[2022-11-15 13:37] LABS: Partial Thromboplastin Time 22.5 sec (22.0-30.0); Prothrombin Time 10.2 sec (9.0-12.0)
[2022-11-15] MEDS ORDERED: NITROGLYCERIN SL TABS 0.4 MG TAB SUBLINGUAL PRN (14:46)
--- NOTE | 2022-11-15 16:53 | P.HPIM ---
History of Present Illness H&P Date: 11/15/22 67-year-old female with PMH of anxiety and depression, hypertension, GERD presents the ED for chest pain. Patient reported chest pain that initially started 2 weeks ago which woke her up from sleep. She initially attributed this to anxiety and panic attack so she did not seek medical attention. She reports no smoking or alcohol. She reports no family history. No history of CAD, NH or CVA. Apparently had a Echo and stress test done 2 years ago which was normal. Location/Quality/Radiation: Pain is midsternal described as dull in nature. She also reports a left-sided chest pain, sharp and stabbing which radiates to the left arm. Intensity: 6-7 out of 10 in severity. Onset: Initially started 2 weeks ago. Since then, she has experienced this chest pain more frequently reports of 3 times a day which prompted her to come to the ED. Her chest pain last between 15 and 20 minutes. Associated symptoms: Palpitations and shortness of breath. She reports exertional shortness of breath which is new to her. She also reports chronic swelling and neuropathy in her LLE. Aggravating factors: Pain is not aggravated with movement or deep inspiration. Pain is not aggravated with exertion. Chest pain can also happen at rest. Alleviating factors: None. Patient denies any headache, lower extremity edema, nausea or vomiting, fever or chills, cough, changes in urination or bowel habits. No changes in appetite or weight. Patient denies any dizziness. In the ED, she was tachycardic with heart rate as high as 116. Vital signs were otherwise stable. CBC and coagulation panel was within normal limits. CMP showed BUN of 19 and glucose of 202. Troponin was less than 0.0122. BNP was 149. EKG showed sinus tachycardia with ventricular rate of 100. Chest x-ray was negative for acute findings. Pertinent positives and negatives as discussed in HPI, a complete review of systems was performed and all other systems are negative. General: non toxic, no distress, appears at stated age Derm: warm, dry Head: atraumatic, normocephalic, symmetric Eyes: EOMI, no lid lag, anicteric sclera Cardiovascular: S1S2 reg, no murmur Lungs: CTA bilateral, no rhonchi, no rales , no accessory muscle use Ext: no gross muscle atrophy, no edema, no contractures Neuro: no focal neuro deficits Psych: Alert, oriented, appropriate affect Chest pain Elevated BUN Chronic conditions: Anxiety and depression, hypertension, GERD Based on my assessment of this patient, this patient meets a high complexity l evel of care. Patient has an acute diagnosis of chest pain that poses a threat to life or bodily function. Patient's HEART score is 4 putting them at moderate risk for acute coronary syndrome. Troponins will be trended and ACS will be ruled out. Echocardiogram will be ordered. Patient will be placed on telemetry monitoring. Cardiology will be consulted for further management of this patient. Troponin: less than 0.0122 EKG: sinus tachycardia with ventricular rate of 100 Risk factors: Age, history of HTN. HEART score: 4 Medications: ASA 81 mg PO QD, Lipitor 40 mg PO QHS. Metoprolol. I have reviewed the following technical assistance consultant notes: I have reviewed the results of the following tests: CBC and coagulation panel was within normal limits. CMP showed BUN of 19 and glucose of 202. Troponin was less than 0.0122. BNP was 149. I have ordered the following tests: Troponin. Echocardiogram. D-Dimer I have discussed the care of this patient with the following independent historian: I have independently interpreted the following test below: EKG showed sinus tachycardia with ventricular rate of 100. Chest x-ray was negative for acute findings. I have discussed the management of this patient with the following physician: The case was discussed with the ED physician with decision made to admit the patient for chest pain, rule out ACS. This patient has a high risk of morbidity due to the following reasons: Patient has an acute diagnosis of chest pain that poses a threat to life or bodily function. Patient's HEART score is 4 putting them at moderate risk for acute coronary syndrome. 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 History of Any Multi-Drug Resistant Organisms: None Reported Past Surgical History: Section, Cholecystectomy, Hernia Repair, Hysterectomy, Tonsillectomy Additional Past Surgical History / Comment(s): 7 EYE SX R/T TO MUSCLES, ELFEGO CATARACT Past Anesthesia/Blood Transfusion Reactions: No Reported Reaction Past Psychological History: Depression Smoking Status: Never smoker Past Alcohol Use History: Occasional Past Drug Use History: None Reported - Past Family History Mother Family Medical History: Unable to Obtain Additional Family Medical History / Comment(s): PATIENT ADOPTED Medications and Allergies Home Medications Medication Instructions Recorded Confirmed Type Omeprazole [PriLOSEC] 20 mg PO SUWEFR 12/06/16 11/15/22 History Estrogens, Conjugated Cream 1 applicator VAGINAL MUNOZ 01/22/22 11/15/22 History [Premarin Vaginal Cream] Losartan Potassium [Cozaar] 25 mg PO DAILY 11/15/22 11/15/22 History Mirtazapine 30 mg PO HS 11/15/22 11/15/22 History Allergies Allergy/AdvReac Type Severity Reaction Status Date / Time cephalexin monohydrate Allergy Severe Anaphylaxis, Verified 11/15/22 15:27 [From Keflex] Throat swelling erythromycin base Allergy Severe Anaphylaxis Verified 11/15/22 15:27 sulfamethoxazole Allergy Severe Anaphylaxis Verified 11/15/22 15:27 [From Septra] trimethoprim [From Septra] Allergy Severe Anaphylaxis Verified 11/15/22 15:27 adhesive Allergy ITCHING/RED Verified 11/15/22 15:27 DNESS morphine Allergy Nausea & Verified 11/15/22 15:27 Vomiting nystatin Allergy Unknown Verified 11/15/22 15:27 codeine AdvReac Nausea & Verified 11/15/22 15:27 Vomiting ibuprofen [From Motrin] AdvReac Nausea & Verified 11/15/22 15:27 Vomiting Iodinated Contrast Media AdvReac Violently Verified 11/15/22 15:27 shaking afterwords Physical Exam Vitals: Vital Signs Temp Pulse Pulse Resp BP Pulse Ox 11/15/22 16:01 98.9 F 105 H 18 143/90 96 11/15/22 15:00 116 H 16 139/95 96 11/15/22 14:08 98.9 F 110 H 18 166/90 97 11/15/22 12:44 18 L 11/15/22 12:36 110 F H 106 H 20 210/93 98 Intake and Output 11/15/22 11/15/22 11/15/22 06:59 14:59 22:59 Other: Weight 111.584 kg Results CBC & Chem 7: 11/15/22 13:02 11/15/22 13:02 Labs: Abnormal Lab Results - Last 24 Hours (Table) 11/15/22 Range/Units 13:02 BUN 19 H (7-17) mg/dL Glucose 202 H (74-99) mg/dL
[2022-11-15] MEDS: NITROGLYCERIN OINT 1 INCH/GM PACKET TOPICAL SCH ×2 (17:06→23:46)
[2022-11-15] MEDS ORDERED: MIRTAZAPINE 15 MG TAB PO SCH (21:00)
[2022-11-16 03:47] VITALS: RESP 17
[2022-11-16] MEDS: NITROGLYCERIN OINT 1 INCH/GM PACKET TOPICAL SCH (05:22)
[2022-11-16] MEDS ORDERED: methylPREDNISolone SOD SUCCI 125 MG/2 ML VIAL IV STA (08:40)
[2022-11-16] MEDS ORDERED: FAMOTIDINE 20 MG/2 ML VIAL IV STA (08:40)
[2022-11-16] MEDS ORDERED: diphenhydrAMINE 50 MG/ML 1 ML VIAL IVP STA (08:40)
[2022-11-16] MEDS ORDERED: ENOXAPARIN 40 MG/0.4 ML SYRINGE SQ SCH (09:00)
[2022-11-16] MEDS ORDERED: LOSARTAN 25 MG TAB PO SCH (09:00)
[2022-11-16] MEDS ORDERED: ASPIRIN 325 MG TAB PO SCH (09:00)
[2022-11-16 09:03] LABS: LDL Cholesterol,Calculated 101.8 mg/dL (0.0-131.0); VLDL Calculation 10.84 mg/dL (5.00-40.00)
--- NOTE | 2022-11-16 10:20 | P.CRDCN ---
History of Present Illness History of present illness: HISTORY OF PRESENT ILLNESS: This is a 67-year-old female with a past medical history significant for hypertension, palpitations, and lightheadedness. Patient follows in the office with Dr. Jain. We have been asked to see the patient in consultation for chest pain. Patient examined at the bedside. Patient presented to the hospital with a chief complaint of palpitations, chest pain, and shortness of breath. The patient states she has been feeling short of breath with exertion for the past 2 weeks. She reports chest pain that is worse with exertion. She denies any recent travel or surgical procedures. Patient's d-dimer is elevated 0.93. * EKG reveals sinus mechanism with no signs of acute ischemia * Chest xray negative for acute process * Laboratory data: W BC 7.3. Hemoglobin 15.1. Platelet count 182. D-dimer 0.93. Sodium 137. Potassium 4.6. BUN 18. Creatinine 0.85. Troponin negative 3 * Current home cardiac medications include losartan 25 mg daily * Most recent echocardiogram obtained in February 2020 revealed ejection fraction 60%, mild TR, mild MR REVIEW OF SYSTEMS: At the time of my exam: CONSTITUTIONAL: Denies fever or chills. HEENT: Denies blurred vision, vision changes, or eye pain. Denies hemoptysis CARDIOVASCULAR: Denies chest pain. Denies orthopnea. Denies PND. Denies palpitations RESPIRATORY: Denies shortness of breath. GASTROINTESTINAL: Denies abdominal pain. Denies nausea or vomiting. HEMATOLOGIC: Denies bleeding disorders. GENITOURINARY: Denies any blood in urine. SKIN: Denies pruitis. Denies rash. PHYSICAL EXAM: VITAL SIGNS: Reviewed. GENERAL: Well-developed in no acute distress. HEENT: Head is normocephalic. Pupils are equal, round. Sclerae anicteric. Mucous membranes of the mouth are moist. Neck supple. No JVD or thyromegaly LUNGS: Respirations even and unlabored. Lungs essentially clear to auscultation bilaterally. HEART: Regular rate and rhythm. S1 and S2 heard. ABDOMEN: Soft. Nondistended. Nontender. EXTREMITIES: Normal range of motion. No clubbing or cyanosis. Peripheral pulses intact. No lower extremity edema NEUROLOGIC: Awake and alert. Oriented x 3. ASSESSMENT: Chest pain with shortness of breath, 2 weeks Palpitations Hypertension History of palpitations History of lightheadedness PLAN: An acute coronary event has been ruled out Obtain 2-D echo to assess cardiac structure and function Patient scheduled for CTA of the chest to rule out pulmonary embolism Further recommendations pending patient's course Nurse practitioner note has been reviewed by physician. Signing provider agrees with the documented findings, assessment, and plan of care. 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 History of Any Multi-Drug Resistant Organisms: None Reported Past Surgical History: Section, Cholecystectomy, Hernia Repair, Hysterectomy, Tonsillectomy Additional Past Surgical History / Comment(s): 7 EYE SX R/T TO MUSCLES, ELFEGO CATARACT Past Anesthesia/Blood Transfusion Reactions: No Reported Reaction Past Psychological History: Depression Smoking Status: Never smoker Past Alcohol Use History: Occasional Past Drug Use History: None Reported - Past Family History Mother Family Medical History: Unable to Obtain Additional Family Medical History / Comment(s): PATIENT ADOPTED Medications and Allergies Home Medications Medication Instructions Recorded Confirmed Type Omeprazole [PriLOSEC] 20 mg PO SUWEFR 12/06/16 11/15/22 History Estrogens, Conjugated Cream 1 applicator VAGINAL MUNOZ 01/22/22 11/15/22 History [Premarin Vaginal Cream] Losartan Potassium [Cozaar] 25 mg PO DAILY 11/15/22 11/15/22 History Mirtazapine 30 mg PO HS 11/15/22 11/15/22 History Allergies Allergy/AdvReac Type Severity Reaction Status Date / Time cephalexin monohydrate Allergy Severe Anaphylaxis, Verified 11/15/22 15:27 [From Keflex] Throat swelling erythromycin base Allergy Severe Anaphylaxis Verified 11/15/22 15:27 sulfamethoxazole Allergy Severe Anaphylaxis Verified 11/15/22 15:27 [From Septra] trimethoprim [From Septra] Allergy Severe Anaphylaxis Verified 11/15/22 15:27 adhesive Allergy ITCHING/RED Verified 11/15/22 15:27 DNESS morphine Allergy Nausea & Verified 11/15/22 15:27 Vomiting nystatin Allergy Unknown Verified 11/15/22 15:27 codeine AdvReac Nausea & Verified 11/15/22 15:27 Vomiting ibuprofen [From Motrin] AdvReac Nausea & Verified 11/15/22 15:27 Vomiting Iodinated Contrast Media AdvReac Violently Verified 11/15/22 15:27 shaking afterwords Physical Exam Vitals: Vital Signs Temp Pulse Pulse Pulse Resp BP BP 11/16/22 09:37 11/16/22 07:00 98.5 F 45 L 17 124/80 11/16/22 02:17 98.1 F 65 17 11/15/22 22:23 98.9 F 72 18 11/15/22 21:00 93 22 11/15/22 20:00 70 18 131/84 11/15/22 19:32 81 20 131/84 11/15/22 19:00 141/85 11/15/22 18:58 98.3 F 85 141/85 11/15/22 18:00 17 130/83 11/15/22 17:59 98.6 F 86 16 130/83 11/15/22 17:00 85 23 124/74 11/15/22 16:59 90 18 124/74 11/15/22 16:01 98.9 F 105 H 18 143/90 11/15/22 16:00 22 139/95 11/15/22 15:00 116 H 24 139/95 11/15/22 14:08 98.9 F 110 H 18 166/90 11/15/22 14:00 98 12 182/112 11/15/22 13:00 98 9 L 11/15/22 12:49 98 15 11/15/22 12:44 18 L 11/15/22 12:36 110 F H 106 H 20 210/93 BP Pulse Ox FiO2 11/16/22 09:37 9 L 21 11/16/22 07:00 98 11/16/22 02:17 125/80 94 L 11/15/22 22:23 138/89 98 11/15/22 21:00 11/15/22 20:00 95 11/15/22 19:32 98 11/15/22 19:00 11/15/22 18:58 97 11/15/22 18:00 11/15/22 17:59 97 11/15/22 17:00 11/15/22 16:59 96 11/15/22 16:01 96 11/15/22 16:00 11/15/22 15:00 95 11/15/22 14:08 97 11/15/22 14:00 98 11/15/22 13:00 11/15/22 12:49 05/22/23 12:44 11/15/22 12:36 98 Intake and Output 11/15/22 11/16/22 11/16/22 22:59 06:59 14:59 Other: # Voids 2 1 Weight 111.584 kg Results 11/15/22 13:02 11/15/22 13:02 Cardiac Enzymes 11/15/22 11/15/22 11/15/22 Range/Units 13:02 13:02 15:05 AST 29 (14-36) U/L Troponin I <0.012 <0.012 (0.000-0.034) ng/mL 11/15/22 Range/Units 17:55 AST (14-36) U/L Troponin I <0.012 (0.000-0.034) ng/mL Coagulation 11/15/22 Range/Units 13:02 PT 10.2 (9.0-12.0) sec APTT 22.5 (22.0-30.0) sec Lipids 11/16/22 Range/Units 05:50 Triglycerides 54.20 (0.00-149.00) mg/dL Cholesterol 169.00 (0.00-200.00) mg/dL HDL Cholesterol 56.40 (40.00-60.00) mg/dL Cholesterol/HDL Ratio 3.00 Ratio CBC 11/15/22 Range/Units 13:02 WBC 7.3 (3.8-10.6) k/uL RBC 4.73 (3.80-5.40) m/uL Hgb 15.1 (11.4-16.0) gm/dL Hct 44.0 (34.0-46.0) % Plt Count 182 (150-450) k/uL Comprehensive Metabolic Panel 11/15/22 Range/Units 13:02 Sodium 137 (137-145) mmol/L Potassium 4.6 (3.5-5.1) mmol/L Chloride 103 (98-107) mmol/L Carbon Dioxide 26 (22-30) mmol/L BUN 19 H (7-17) mg/dL Creatinine 0.85 (0.52-1.04) mg/dL Glucose 202 H (74-99) mg/dL Calcium 9.1 (8.4-10.2) mg/dL AST 29 (14-36) U/L ALT 27 (4-34) U/L Alkaline Phosphatase 83 (38-126) U/L Total Protein 7.2 (6.3-8.2) g/dL Albumin 4.3 (3.5-5.0) g/dL Current Medications Generic Name Dose Route Start Last Admin Trade Name Freq PRN Reason Stop Dose Admin Enoxaparin Sodium 40 mg 11/16/22 09:00 Enoxaparin 40 Mg/0.4 Ml Syringe SQ DAILY JERMAINE Losartan Potassium 25 mg 11/16/22 09:00 Losartan 25 Mg Tab PO DAILY JERMAINE Mirtazapine 30 mg 11/15/22 21:00 11/15/22 20:11 Mirtazapine 15 Mg Tab PO 30 mg HS JERMAINE Administration Nitroglycerin 0.4 mg 11/15/22 14:46 Nitroglycerin Sl Tabs 0.4 Mg Tab SUBLINGUAL Q5M PRN Chest Pain Pantoprazole Sodium 40 mg 11/17/22 07:30 Pantoprazole 40 Mg Tablet PO SUWEFR JERMAINE Intake and Output 11/15/22 11/16/22 11/16/22 22:59 06:59 14:59 Other: # Voids 2 1 Weight 111.584 kg 11/15/22 13:02 11/15/22 13:02
--- NOTE | 2022-11-16 11:39 | CT ---
EXAMINATION TYPE: CT chest angio for PE DATE OF EXAM: 11/16/2022 COMPARISON: Radiographs 11/15/2022 HISTORY: 67 year-old female shortness of breath, elevated d-dimer TECHNIQUE: Contiguous axial scanning of the chest performed with IV Contrast, patient injected with 8 0cc mL of Isovue 370. Coronal/sagittal MIP reconstructions performed. CT DLP: 475 mGycm Automated exposure control for dose reduction was used. FINDINGS: Heart is normal size without pericardial effusion. No flattening of the interventricular septum reflu x of contrast into the hepatic veins. Mildly ectatic ascending aorta 3.7 cm. Bovine configuration to the aortic arch. Additional direct lani eoff of the left vertebral artery directly from the aortic arch. Enlarged caliber to the main right and left pulmonary arteries measuring up to 2.7 cm suggesting unde rlying pulmonary hypertension. There is no evidence for pulmonary embolus. No thoracic lymphadenopathy by CT size criteria. Some strandy atelectasis in the lower lungs. Mild dependent atelectasis also present. A couple scatte red benign calcified granulomas are noted. No consolidation or pleural effusion. There is mild hyperi nflation. Small hiatal hernia. Borderline size spleen at 13.7 cm. Cholecystectomy clips. Bones: DISH throughout the mid and lower thoracic spine with accentuated midthoracic kyphosis. IMPRESSION: 1. NO EVIDENCE FOR PULMONARY EMBOLUS. 2. HYPERINFLATION SUGGESTING UNDERLYING EMPHYSEMA. PULMONARY ARTERIAL HYPERTENSION. 3. NO ACUTE PULMONARY PROCESS. 4. Small hiatal hernia. 4. DISH throughout the thoracic spine with accentuated midthoracic kyphosis.
--- NOTE | 2022-11-16 14:04 | CA ---
Transthoracic Echo Report Name: Floresita Patrick Age: 67 Gender: F : 1955 Exam Date: 11/16/2022 08:02 Exam Location: [facility] Ht (in): 68 Wt (lb): 246 Ordering Physician: Anam Otoole MD Attending/Referring Phys: Circulator Jatin Diaz Procedure CPT: Indications: CP Cardiac Hx: Technical Quality: Good Contrast 1: Total Dose (mL): Contrast 2: Total Dose (mL): MEASUREMENTS (Male / Female) Normal Values 2D ECHO LV Diastolic Diameter PLAX 4.0 cm 4.2 - 5.9 / 3.9 - 5.3 cm LV Systolic Diameter PLAX 2.9 cm IVS Diastolic Thickness 1.1 cm 0.6 - 1.0 / 0.6 - 0.9 cm LVPW Diastolic Thickness 1.4 cm 0.6 - 1.0 / 0.6 - 0.9 cm LV Relative Wall Thickness 0.6 RV Internal Dim ED PLAX 3.0 cm LVOT Diameter 2.0 cm Aortic Root Diameter 2.9 cm LV Diastolic Volume MOD BP 59.8 cm??? 67 - 155 / 56 - 104 cm??? LV Systolic Volume MOD BP 22.6 cm??? 22 - 58 / 19 - 49 cm??? LV Ejection Fraction MOD BP 62.3 % >= 55 % LV Diastolic Volume MOD 4C 66.2 cm??? LV Systolic Volume MOD 4C 26.8 cm??? LV Ejection Fraction MOD 4C 59.6 % LV Diastolic Length 4C 7.0 cm LV Systolic Length 4C 6.0 cm LV Diastolic Volume MOD 2C 54.7 cm??? LV Systolic Volume MOD 2C 17.7 cm??? LV Ejection Fraction MOD 2C 67.6 % LV Diastolic Length 2C 7.0 cm LV Systolic Length 2C 5.5 cm LA Volume 43.8 cm??? 18 - 58 / 22 - 52 cm??? Ascending Aorta Diameter 3.4 cm DOPPLER AV Peak Velocity 138.6 cm/s AV Peak Gradient 7.7 mmHg MV Peak Velocity 120.5 cm/s MV Peak Gradient 5.8 mmHg MV Mean Velocity 60.1 cm/s MV Mean Gradient 1.9 mmHg MV Velocity Time Integral 32.0 cm MR Peak Velocity 351.5 cm/s MR Peak Gradient 49.4 mmHg Mitral E Point Velocity 86.5 cm/s Mitral A Point Velocity 106.1 cm/s Mitral E to A Ratio 0.8 MV Deceleration Time 245.2 ms MV E' Velocity 7.8 cm/s Mitral E to MV E' Ratio 11.0 TR Peak Velocity 213.6 cm/s TR Peak Gradient 18.2 mmHg Right Ventricular Systolic Press 23.3 mmHg FINDINGS Left Ventricle Left ventricular ejection fraction is estimated at 60-65 %. Right Ventricle Normal right ventricular size and function. Right Atrium Normal right atrial size. Left Atrium Normal left atrial size. Mitral Valve Structurally normal mitral valve. TraceMR. Aortic Valve Trileaflet aortic valve. No aortic valve stenosis or regurgitation. Tricuspid Valve Structurally normal tricuspid valve. Mild TR. Pulmonic Valve Pulmonic valve not well visualized. Trace [place]. Pericardium Normal pericardium. Aorta Normal size aortic root and proximal ascending aorta. CONCLUSIONS Normal LV systolic function Previewed by: Dr. Aba Gilliam MD (Electronically Signed) Final Date: 16 Nov 2022 14:03
[2022-11-16 14:23] VITALS: BP 144/74; PULSE 88; TEMP 98.3
--- NOTE | 2022-11-16 14:46 | P.DS ---
Providers Date of admission: 11/15/22 15:12 Expected date of discharge: 11/16/22 Attending physician: Anam Otoole MD Consults: 11/15/22 14:46 Consult Physician Urgent Consulting Provider: [facility] Consult Reason/Comments: Chest pain Do you want consulting provider notified?: Yes Primary care physician: Lux Loza [facility] Course: Discharge Diagnosis: Chest pain, acute coronary event ruled out Hypertension GERD Anxiety Depression Hospital Course: Patient is a very pleasant 67-year-old female with a past medical history of hypertension, GERD, anxiety, and depression. She presented to the emergency department on 11/15/22 with a chief complaint of chest pain. Patient reports being awoken with a sharp pain to her midsternal chest followed by a feeling of severe panic and anxiety. She underwent full evaluation in the emergency department. CBC, coags, and CMP were drawn all unremarkable. Troponin less than 0.012 and pro-BMP of 149. EKG was completed showing sinus tachycardia at 100 bpm with no noted signs of acute ischemia upon personal review and interpretation. Chest x-ray completed in radiology report reviewed showing concerns of possible underlying COPD but no evidence for acute cardiopulmonary process. Patient was admitted under our services with consultation to cardiology. Troponins were trended overnight all negative at less than 0.0123 draws. Hemoglobin A1c resulting in 6.0%. Lipid profile unremarkable. D-dimer resulting elevated at 0.93. Cardiology evaluated and patient underwent an echocardiogram. CTA was completed secondary to elevated d-dimer which was negative for acute cardiopulmonary process revealing no evidence for pulmonary emboli showing hyperinflation suggesting of underlying emphysema. Echocardiogram completed revealing EF of 60-65% with no significant reported valvular structural abnormalities. Patient is free from any chest pain or discomfort at this time. Patient reports being eager to go home. Discussed with cardiology recommending outpatient follow-up in their office in one week. Medically, patient stable at this time showing no signs of acute distress. Patient medically stable for discharge and encouraged to follow up outpatient with her PCP in 1-2 days and with cardiology in 1 week. Patient seen and examined at bedside. Vital signs reviewed and stable. General: Nontoxic, no distress and appears stated age. Derm: Skin warm and dry, normal coloration for ethnicity. Head: Atraumatic, normocephalic and symmetric. Eyes: EOMs intact, no lid lag, and anicteric sclera Mouth: no lip lesions, mucus membranes moist Cardiovascular: regular rate and rhythm with normal S1S2, no murmur, positive posterior tibial pulses bilaterally, and cap refill < 2 seconds. Lungs: Respirations even, regular, and unlabored on room air. Lungs CTA bilaterally, no rhonchi, no rales, no wheezing, and no accessory muscle usage. Abdominal: soft, nontender to palpation, no guarding, no appreciable organomegaly Ext: ROM intact. No gross muscle atrophy, no edema, no contractures Neuro: Speech clear, face symmetrical and CN II-XII grossly intact with no noted focal neuro deficits Psych: Alert and oriented to person, place, time, and situation. Appropriate and pleasant affect. A total of 31 minutes of time were spent preparing this complex discharge summary. Pt was discharged on 11/16/22 at 2:45 PM Patient was seen independently by Nurse Practitioner. This document was prepared using [employer] dictation software. Please allow for errors in legal transcriptionist while rare they do occur. Patient Condition at Discharge: Stable Plan - Discharge Summary New Discharge Prescriptions: Continue Omeprazole [PriLOSEC] 20 mg PO SUWEFR Estrogens, Conjugated Cream [Premarin Vaginal Cream] 1 applicator VAGINAL MUNOZ Losartan Potassium [Cozaar] 25 mg PO DAILY Mirtazapine 30 mg PO HS Discharge Medication List Omeprazole [PriLOSEC] 20 mg PO SUWEFR 12/06/16 [History] Estrogens, Conjugated Cream [Premarin Vaginal Cream] 1 applicator VAGINAL MUNOZ 01/22/22 [History] Losartan Potassium [Cozaar] 25 mg PO DAILY 11/15/22 [History] Mirtazapine 30 mg PO HS 11/15/22 [History] Follow up Appointment(s)/Referral(s): Obey Jain DO [STAFF PHYSICIAN] - 12/06/22 11:00 am Lux Buchanan MD [Primary Care Provider] - 1-2 days Patient Instructions/Handouts: Chest Pain (DC) Activity/Diet/Wound Care/Special Instructions: Activity: As tolerated. Take breaks as needed. Diet: Heart healthy and carb consistent diet. Avoid salts, or foods with hidden salts such as canned or boxed foods and frozen dinners. Extra salt makes your heart work harder and traps the fluid in your body for longer. Special Instructions: Take all of your medications as directed and remember to keep all of your doctor's appointments and follow-up as needed. Thank you for allowing us to participate in your care, it was truly a pleasure having you for our patient!!! Discharge Disposition: HOME SELF-CARE
[2022-11-17] MEDS ORDERED: PANTOPRAZOLE 40 MG TABLET PO SCH (07:30)
== END 2022-11-16 16:11 | disposition home or self-care (01) ==
LOC: EC 12:33 → 6NMEDSUR 15:12
PROVIDERS: ADMIT Family Medicine; ATTEND Family Medicine
DX: R07.89 Other chest pain (principal); I10 Essential (primary) hypertension; F41.9 Anxiety disorder, unspecified; K21.9 Gastro-esophageal reflux disease without esophagitis; E11.42 Type 2 diabetes mellitus with diabetic polyneuropathy; F32.A Depression, unspecified; R00.0 Tachycardia, unspecified; I77.819 Aortic ectasia, unspecified site; J98.11 Atelectasis; L92.8 Other granulomatous disorders of the skin and subcutaneous tissue; K44.9 Diaphragmatic hernia without obstruction or gangrene; I27.21 Secondary pulmonary arterial hypertension; M48.14 Ankylosing hyperostosis [Forestier], thoracic region; I08.1 Rheumatic disorders of both mitral and tricuspid valves; I37.1 Nonrheumatic pulmonary valve insufficiency; Z79.899 Other long term (current) drug therapy; Z88.2 Allergy status to sulfonamides; Z88.8 Allergy status to other drugs, medicaments and biological substances; Z88.5 Allergy status to narcotic agent; Z90.710 Acquired absence of both cervix and uterus; Z90.49 Acquired absence of other specified parts of digestive tract; Z98.42 Cataract extraction status, left eye; Z98.41 Cataract extraction status, right eye; Z62.898 Other specified problems related to upbringing
CPT/HCPCS: 96372; 96375; 96374; 99285; 36415; 94760; 93005; 93306; 85379; 83880; 80061; 80053; 83735; 84484; 85025; 85610; 85730; 83036; 71046; 71275; G0378 ×2; J0360; J1200; J2930; J1650; Q9967

== ENCOUNTER → 2023-01-24 | Outpatient (CLI) | payer MEDICARE ==
--- NOTE | 2023-01-25 20:29 | MM ---
Reason for Exam: Screening (asymptomatic). Last screening mammogram was performed 12 month(s) ago. Patient History: Menarche at age 12. First Full-Term at age 26. Left ovary removed at age 43. Right ovary removed at age 43. Hysterectomy at age 43. Postmenopausal. Estrogen for 3 years from age 43 until age 46. Progesterone for 3 years from age 43 until age 46. 04/18/2007, Excisional Biopsy on the Left side. 12/09/2016, High risk Core Biopsy on the left side. Risk Values: Ankita 5 year model risk: 2.8%. NCI Lifetime model risk: 9.5%. Prior Study Comparison: 09/25/2020 Right Diagnostic Mammogram, [facility]. 01/15/2021 Bilateral Screening Mammogram, [facility]. 01/18/2022 Bilateral MG 3D screening mammo w/cad, [facility]. Tissue Density: There are scattered fibroglandular densities. Findings: Analyzed By CAD. Chronic bilateral nodularity. Microclip left breast from prior biopsy. Unchanged benign vascular, oil cyst, and secretory calcifications on the left. There is no suspicious group of microcalcifications or new suspicious mass in either breast. Overall Assessment: Benign, BI-RAD 2 Management: Screening Mammogram of both breasts in 1 year. . Patient should continue monthly self-breast exams. A clinical breast exam by your physician is recommended on an annual basis. This exam should not preclude additional follow-up of suspicious palpable abnormalities. Note on Ankita scores and lifetime risk: 1. A Ankita score greater than 3% is considered moderate risk. If this is the case, consider specialist referral to assess eligibility for a risk reducing agent. 2. If overall lifetime risk for the development of breast cancer is 20% or higher, the patient may qualify for future screening with alternating mammogram and breast MRI. Electronically signed and approved by: Carmen Quintana M.D. Radiologist
== END | disposition home or self-care (01) ==
LOC: RADMAMWWP 12:56
PROVIDERS: ATTEND Surgery
DX: Z12.31 Encounter for screening mammogram for malignant neoplasm of breast (principal); Z78.0 Asymptomatic menopausal state
CPT/HCPCS: 77063; 77067

== ENCOUNTER → 2023-01-27 | Outpatient (CLI) | payer MEDICARE ==
[2023-01-27 14:16] VITALS: BP 139/85; PULSE 95; RESP 18; TEMP 98.4
--- NOTE | 2023-01-27 14:20 | P.PN ---
Subjective Progress Note Date: 01/27/23 Principal diagnosis: fibrocystic breast changes known intra-ductal papilloma followed conservatively Fibrocystic breast changes/known intraductal papilloma followed conservatively Floresita is a 67-year-old white female who in 2016 had a core biopsy of the left breast which revealed a small intraductal papilloma. She did not have excision of the lesion and has been followed conservatively. She has been followed radiographically since that time. On 12-01-18 she had a bilateral mammogram and nodularity was noted adjacent to the 3:00 left breast microclip which appeared more defined. Six-month follow-up was recommended. Six-month follow-up was performed in July 2019 at that time the breast tissue was noted to be heterogeneously dense and no discrete lesion was noted. However, the recommendation was for the patient to be evaluated by a surgeon secondary to the fact that an intraductal papilloma had been identified in 2016 and no resection had been performed. She was seen here at that time and recommendation was for conservative follow-up. Is not complaining of any new lumps masses or nodules of concern in either breast. She is not complaining of any skin changes. She does not complain of any nipple discharge. Her most recent mammogram was on 01-24-23 which was BIRAD 2. The patient has been on premarin for 3 years related to UTI's she feels much better. Caffeine: none smoke: none Theophylline: Several times a month/patient is diabetic Hormone: none Milk: Patient drinks several glasses a day no hormones or supplements Family History: adopted does not know family history Hormonal History: menarche: 12 , 1 , age at first : 25, breast fed: no Menopause: hysterectomy at 49 for fibroids took ovaries BCP: 4 years hormones: after hysterectomy for two years Surgical History: 1. Hysterectomy with bilateral salpingo-oophorectomy 2. Cholecystectomy 3. Right groin hernia 4. 5 eye surgeries 6. Tonsillectomy 7. two C sections 8. right parotid resection Medical History: 1. diabetic diet controlled 2. UTI's stopped 3. asthma Social History: smoke: none alcohol: rare drugs: none - Constitutional Constitutional: Denies chills, Denies fever - EENT Eyes: denies blurred vision, denies pain Ears: left: tinnitus, deny: decreased hearing Ears, nose, mouth and throat: Denies headache, Denies sore throat - Breasts Breasts: bilateral: as per HPI - Cardiovascular Cardiovascular: Reports high blood pressure, Denies chest pain, Denies shortness of breath - Respiratory Respiratory: Denies cough, asthma - Gastrointestinal Comment: PUD Gastrointestinal: Denies abdominal pain, Denies diarrhea, Denies nausea, Denies vomiting - Genitourinary (Female) Comment: frequant UTI - Menstruation Menstruation: Reports post hysterectomy - Musculoskeletal Comment: arthritis Musculoskeletal: Denies myalgias - Integumentary Integumentary: Denies pruritus, Denies rash - Neurological Neurological: Denies numbness, Denies weakness - Psychiatric Psychiatric: Reports depression, Denies anxiety - Endocrine Comment: diabetes - Hematologic/Lymphatic Comment: none - Allergic/Immunologic Allergic/Immunologic: Reports as per HPI, Reports seasonal allergies Objective - Vital Signs Vital signs: Intake & Output 01/26/23 01/27/23 01/27/23 18:59 06:59 18:59 Weight 111.584 kg - Constitutional General appearance: Present: cooperative - EENT Eyes: Present: EOMI ENT: Present: hearing grossly normal - Neck Neck: Present: normal ROM - Respiratory Respiratory: bilateral: CTA - Cardiovascular Heart sounds: normal: S1, S2 - Gastrointestinal General gastrointestinal: Present: soft - Integumentary Integumentary: Present: normal turgor - Musculoskeletal Musculoskeletal: Present: gait normal - Psychiatric Psychiatric: Present: A&O x's 3, appropriate affect, intact judgment & insight - Additional findings Additional findings: Breast Exam: BRA: 50B inspection: Bilateral grade 2/3 ptosis Palpation: Right breast: Multi-positional exam fibrocystic changes no dominant masses or nodules of concern Right axilla: No adenopathy of concern Left breast: Multiple positional exam fibrocystic changes, slight fullness in the upper outer quadrant nothing which would warrant interventional biopsy at this time Left axilla: No adenopathy of concern Assessment and Plan Assessment: Impression: Fibrocystic breast changes Known intraductal papilloma on core biopsy of the left breast in 2017 which is b een followed conservatively Bilateral mammogram 01-24-23 benign BIRADS 2 Plan: Bilateral mammogram in 1 year with physician exam at that time Patient to follow up sooner any questions or concerns CC: Dr. Buchanan
== END ==
LOC: WWCWWP 13:34
PROVIDERS: ATTEND Surgery
DX: N60.12 Diffuse cystic mastopathy of left breast (principal); E11.9 Type 2 diabetes mellitus without complications; J45.909 Unspecified asthma, uncomplicated; N63.25 Unspecified lump in the left breast, overlapping quadrants; Z88.1 Allergy status to other antibiotic agents; Z88.2 Allergy status to sulfonamides; Z91.048 Other nonmedicinal substance allergy status; Z88.5 Allergy status to narcotic agent; Z88.6 Allergy status to analgesic agent; Z91.041 Radiographic dye allergy status

== ENCOUNTER → 2023-04-18 | Outpatient (CLI) | payer MEDICARE ==
--- NOTE | 2023-04-18 16:01 | MR ---
EXAMINATION TYPE: MR brain wo con DATE OF EXAM: 04/18/2023 COMPARISON: None HISTORY: Benign neoplasm of cerebral meninges. CONTRAST: Performed utilizing 0 mL intravenous Gadavist gadolinium contrast. TECHNIQUE: Multiplanar, multiecho imaging on a 3.0 Ginny magnet is performed through the brain. Stud y is performed within 24 hours of arrival to the hospital. The craniovertebral junction is normal. The pituitary is normal. Diffusion-weighted imaging is performed. No abnormal hyperintensity is present to suggest an acute i ntracranial infarct or acute ischemic change. There are a few subcortical white matter changes in the right frontal lobe. These are nonspecific Ventricles and sulci are appropriate for the patient age. No suspicious meningeal thickening is evident. IMPRESSION: 1. 3 nonspecific white matter changes right frontal lobe subcortical white matter. Findings are nonsp ecific but could be related to migraine headaches or microvascular ischemic change.
== END | disposition home or self-care (01) ==
LOC: RADMRIMAIN 14:28
PROVIDERS: ATTEND Family Medicine
DX: D32.0 Benign neoplasm of cerebral meninges (principal); G93.89 Other specified disorders of brain
CPT/HCPCS: 70551

== ENCOUNTER → 2024-03-08 | Outpatient (CLI) | payer MEDICARE ==
--- NOTE | 2024-03-08 18:55 | MM ---
Reason for Exam: Screening (asymptomatic). Last mammogram was performed 1 year(s) and 2 month(s) ago. Patient History: Menarche at age 12. First Full-Term at age 26. Left ovary removed at age 43. Right ovary removed at age 43. Hysterectomy at age 43. Postmenopausal. Estrogen for 3 years from age 43 until age 46. Progesterone for 3 years from age 43 until age 46. 04/18/2007, Excisional Biopsy on the Left side. 12/09/2016, High risk Core Biopsy on the left side. Risk Values: Ankita 5 year model risk: 2.9%. NCI Lifetime model risk: 8.7%. Prior Study Comparison: 01/15/2021 Bilateral Screening Mammogram, [facility]. 01/18/2022 Bilateral MG 3D screening mammo w/cad, [facility]. 01/24/2023 Bilateral MG 3D screening mammo w/cad, [facility]. Tissue Density: There are scattered areas of fibroglandular density. Findings: Analyzed By CAD. Chronic nodularity within the left breast. Scattered rounded punctate calcifications bilaterally are unchanged. Microclip left breast from prior biopsy. A large area of fat density at the left axilla thinly marginated in retrospect remains unchanged and may represent an underlying lipoma. Given stability, this suggests a benign etiology. We note the ultrasound that has been ordered for the patient. Please refer to that exam for further findings and recommendations. No significant change from prior exams. Overall Assessment: Benign, BI-RAD 2 Management: Screening Mammogram of both breasts in 1 year. Please refer to additional findings and recommendations on the separate ultrasound of the left breast. Patient should continue monthly self-breast exams. A clinical breast exam by your physician is recommended on an annual basis. This exam should not preclude additional follow-up of suspicious palpable abnormalities. Note on Ankita scores and lifetime risk: 1. A Ankita score greater than 3% is considered moderate risk. If this is the case, consider specialist referral to assess eligibility for a risk reducing agent. 2. If overall lifetime risk for the development of breast cancer is 20% or higher, the patient may qualify for future screening with alternating mammogram and breast MRI. Electronically signed and approved by: Carmen Quintana M.D. Radiologist
--- NOTE | 2024-03-09 07:29 | USB ---
Reason for Exam: Clinical finding. Patient History: Menarche at age 12. First Full-Term at age 26. Left ovary removed at age 43. Right ovary removed at age 43. Hysterectomy at age 43. Postmenopausal. Estrogen for 3 years from age 43 until age 46. Progesterone for 3 years from age 43 until age 46. 04/18/2007, Excisional Biopsy on the Left side. 12/09/2016, High risk Core Biopsy on the left side. Risk Values: Ankita 5 year model risk: 2.9%. NCI Lifetime model risk: 8.7%. Technique: Method: Targeted. Doppler: Color. Patient Position: Supine. Prior Study Comparison: 01/15/2021 Bilateral Screening Mammogram, [facility]. 01/18/2022 Bilateral MG 3D screening mammo w/cad, [facility]. 01/24/2023 Bilateral MG 3D screening mammo w/cad, [facility]. Findings: The area of palpable concern of the left breast, the axilla of the left breast and the retroareolar of the left breast were scanned. Targeted ultrasound to the patient's posterior upper outer quadrant palpable site with additional scanning in the subareolar region and axilla. At the palpable site, 1:00 position, at 22 cm from the nipple ranging up to 8 cm from the nipple, there is a large oval circumscribed isoechoic mass measuring 13.0 x 4.5 x 7.4 cm. No associated vascularity. No posterior shadowing. In retrospect, the patient's mammogram shows fat density at the left axilla marginated by a thin rim especially on left MLO 3-D slice 45/83. Findings suggest a large lipoma. No other solid or cystic lesion or axillary lymphadenopathy. Overall Assessment: Suspicious, BI-RAD 4 Management: Surgical Consultation of the left breast. For consideration to surgical excision of suspected large lipoma. If desired, percutaneous ultrasound-guided tissue sampling can be performed. Results were given to the patient verbally at the time of exam. Electronically signed and approved by: Marcus Tolbert M.D. Radiologis
== END | disposition home or self-care (01) ==
LOC: RADMAMWWP 14:35
PROVIDERS: ATTEND Surgery
DX: R92.8 Other abnormal and inconclusive findings on diagnostic imaging of breast
CPT/HCPCS: 77063; 77067

== ENCOUNTER → 2024-03-15 | Outpatient (CLI) | payer MEDICARE ==
[2024-03-15 13:10] VITALS: BP 148/70; PULSE 97; RESP 17; TEMP 99
--- NOTE | 2024-03-15 13:48 | P.PN ---
Subjective Progress Note Date: 03/15/24 Principal diagnosis: lesion left axilla n03-15-24 01/27/23 Principal diagnosis: fibrocystic breast changes known intra-ductal papilloma followed conservatively Floresita is a 67-year-old white female who in 2016 had a core biopsy of the left breast which revealed a small intraductal papilloma. She did not have excision of the lesion and has been followed conservatively. She has been followed radiographically since that time. On 12-01-18 she had a bilateral mammogram and nodularity was noted adjacent to the 3:00 left breast microclip which appeared more defined. Six-month follow-up was recommended. Six-month follow-up was performed in July 2019 at that time the breast tissue was noted to be heterogeneously dense and no discrete lesion was noted. However, the recommendation was for the patient to be evaluated by a surgeon secondary to the fact that an intraductal papilloma had been identified in 2016 and no resection had been performed. She was seen here at that time and recommendation was for conservative follow-up. Is not complaining of any new lumps masses or nodules of concern in either breast. She is not complaining of any skin changes. She does not complain of any nipple discharge. Her most recent mammogram was on 01-24-23 which was BIRAD 2. The patient has been on premarin for 3 years related to UTI's she feels much better. 03-15-24 She noted a fullness under her left arm about 6 weeks ago. This was after she had covid. It has not changed in size since then. She is unsure as to how long that has been present. Bilateral mammogram on 03-08-24 BIRAD 2 but a lesion noted in the axilla also seen on ultrasound which is 13 by 7.4 by 4.5 cm in size. Core biopsy of the left bresat no cancer in the past, no recent trauma or infection in the breast. Caffeine: none smoke: none Theophylline: Several times a month/patient is diabetic Hormone: none Milk: Patient drinks several glasses a day no hormones or supplements Family History: adopted does not know family history Hormonal History: menarche: 12 , 1 , age at first : 25, breast fed: no Menopause: hysterectomy at 49 for fibroids took ovaries BCP: 4 years hormones: after hysterectomy for two years Surgical History: 1. Hysterectomy with bilateral salpingo-oophorectomy 2. Cholecystectomy 3. Right groin hernia 4. 5 eye surgeries 6. Tonsillectomy 7. two C sections 8. right parotid resection Medical History: 1. diabetic diet controlled 2. UTI's stopped 3. asthma 4. had COVID December 09 5. bilateral numbness in her feet and losing her balance Social History: smoke: none alcohol: rare drugs: none - Constitutional Constitutional: Denies chills, Denies fever - EENT Eyes: denies blurred vision, denies pain Ears: left: tinnitus, deny: decreased hearing Ears, nose, mouth and throat: Denies headache, Denies sore throat - Breasts Breasts: bilateral: as per HPI - Cardiovascular Cardiovascular: Reports high blood pressure, Denies chest pain, Denies shortness of breath - Respiratory Respiratory: Denies cough, asthma - Gastrointestinal Comment: PUD Gastrointestinal: Denies abdominal pain, Denies diarrhea, Denies nausea, Denies vomiting - Genitourinary (Female) Comment: frequant UTI - Menstruation Menstruation: Reports post hysterectomy - Musculoskeletal Comment: arthritis Musculoskeletal: Denies myalgias - Integumentary Integumentary: Denies pruritus, Denies rash - Neurological Neurological: Denies numbness, Denies weakness - Psychiatric Psychiatric: Reports depression, Denies anxiety - Endocrine Comment: diabetes - Hematologic/Lymphatic Comment: none - Allergic/Immunologic Allergic/Immunologic: Reports as per HPI, Reports seasonal allergies Objective - Vital Signs Vital signs: Vital Signs Temp 99 F 03/15/24 13:08 Pulse 97 03/15/24 13:08 Resp 17 03/15/24 13:08 BP 148/70 03/15/24 13:08 Pulse Ox 98 03/15/24 13:08 FiO2 Intake & Output 03/14/24 03/15/24 03/15/24 18:59 06:59 18:59 Weight 110.677 kg - Constitutional General appearance: Present: cooperative - EENT Eyes: Present: EOMI ENT: Present: hearing grossly normal - Neck Neck: Present: normal ROM - Respiratory Respiratory: bilateral: CTA - Cardiovascular Rhythm: regular Heart sounds: normal: S1, S2 - Integumentary Integumentary: Present: normal turgor - Musculoskeletal Musculoskeletal Comment(s): gait unsteady - Psychiatric Psychiatric: Present: A&O x's 3, appropriate affect, intact judgment & insight - Additional findings Additional findings: Breast Exam: BRA: 50B inspection: Bilateral grade 2/3 ptosis Palpation: Right breast: Multi-positional exam fibrocystic changes no dominant masses or nodules of concern Right axilla: No adenopathy of concern Left breast: Multiple positional exam fibrocystic changes, there is approximately a 13 x 7 cm area of fullness in the upper outer quadrant extending to the axilla of the left breast this appears to be consistent with a lipoma and is consistent with what is seen radiographically, last year there was noted to be some slight fullness on examination in this vicinity which was not felt to be worrisome Left axilla: No adenopathy of concern Assessment and Plan Assessment: Impression: Fibrocystic breast changes Known intraductal papilloma on core biopsy of the left breast in 2017 which is been followed conservatively Bilateral mammogram 03-08-24 BIRAD 2; but lesion noted left axilla/chest wall biopsy recommended Plan: biopsy lesion left chest wall/axilla follow up after this gait unsteady to follow with Dr. Buchanan Patient to follow up sooner any questions or concerns CC: Dr. Buchanan
== END ==
LOC: WWCWWP 12:50
PROVIDERS: ATTEND Surgery
DX: R92.8 Other abnormal and inconclusive findings on diagnostic imaging of breast (principal); N60.11 Diffuse cystic mastopathy of right breast; N60.12 Diffuse cystic mastopathy of left breast; D24.2 Benign neoplasm of left breast; N63.25 Unspecified lump in the left breast, overlapping quadrants; N39.0 Urinary tract infection, site not specified; Z86.16 Personal history of COVID-19; Z88.1 Allergy status to other antibiotic agents; Z88.2 Allergy status to sulfonamides; Z88.5 Allergy status to narcotic agent; Z91.048 Other nonmedicinal substance allergy status; Z88.6 Allergy status to analgesic agent; Z91.041 Radiographic dye allergy status; Z88.8 Allergy status to other drugs, medicaments and biological substances

== ENCOUNTER → 2024-04-04 | Day surgery (SDC) | payer MEDICARE ==
--- NOTE | 2024-04-10 08:57 | USB ---
Risk Values: Ankita 5 year model risk: 2.9%. NCI Lifetime model risk: 8.7%. Prior Study Comparison: 01/18/2022 Bilateral MG 3D screening mammo w/cad, [facility]. 01/24/2023 Bilateral MG 3D screening mammo w/cad, [facility]. 03/08/2024 Bilateral MG 3D screening mammo w/cad, [facility]. Pathology Description: Location: 1 o'clock. Marker Left Behind. Needle Type: Celero Cores: 3 Gauge: 12 The procedure of ultrasound guided core biopsy was explained to the patient. Benefits, alternatives, and risks were discussed. An informed consent was then obtained. The patient was placed in supine positioning for imaging and for the procedure. The overlying skin was prepped and draped in usual sterile fashion. Lidocaine buffered with bicarbonate was used as anesthetic into the skin and subcutaneous tissue up to area of concern in the left 1:00 breast 15 cm from the nipple breast. A paula was made with surgical scalpel. Under ultrasound guidance, a 12-gauge vacuum assisted biopsy gun device was used to obtain 3 core samples. Following this, a biopsy clip was left in lesion. The patient tolerated the procedure well without any immediate complication. The patient was kept in the radiology department for short stay after the procedure and then discharged home in stable condition. Postprocedure mammogram: The patient was transferred to mammography for physician ordered post procedure mammogram for clip placement verification. Impression: Successful, uncomplicated ultrasound guided core biopsy of area of concern in the left breast, full pathology results to follow. [facility], , 04/04/2024 2:11 PM. Pathology Results: Result: Benign, Lipoma of the breast. LEFT BREAST, ONE O'CLOCK, ULTRASOUND GUIDED NEEDLE CORE BIOPSY: Benign adipose tissue suggestive of lipoma. Breast elements are not identified. Overall Assessment: Benign Management: Diagnostic Breast Ultrasound of the left breast in 6 months. Electronically signed and approved by: Marcus Tolbert M.D. Radiologis
== END ==
LOC: RADUSWWP 12:35
PROVIDERS: ATTEND Surgery
DX: R92.8 Other abnormal and inconclusive findings on diagnostic imaging of breast (principal)
CPT/HCPCS: 88305

== ENCOUNTER → 2024-04-13 | Outpatient (CLI) | payer MEDICARE ==
[2024-04-13 10:02] VITALS: BP 170/91; PULSE 101; RESP 18; TEMP 98.5
--- NOTE | 2024-04-13 10:24 | P.PN ---
Subjective Progress Note Date: 04/13/24 04-13-24 Principal diagnosis: fibrocystic breast changes known intra-ductal papilloma followed conservatively lipoma left axilla 01-28-24 Floresita is a 67-year-old white female who in 2016 had a core biopsy of the left breast which revealed a small intraductal papilloma. She did not have excision of the lesion and has been followed conservatively. She has been followed radiographically since that time. On 12-01-18 she had a bilateral mammogram and nodularity was noted adjacent to the 3:00 left breast microclip which appeared more defined. Six-month follow-up was recommended. Six-month follow-up was performed in July 2019 at that time the breast tissue was noted to be heterogeneously dense and no discrete lesion was noted. However, the recommendation was for the patient to be evaluated by a surgeon secondary to the fact that an intraductal papilloma had been identified in 2016 and no resection had been performed. She was seen here at that time and recommendation was for conservative follow-up. Is not complaining of any new lumps masses or nodules of concern in either breast. She is not complaining of any skin changes. She does not complain of any nipple discharge. Her most recent mammogram was on 01-24-23 which was BIRAD 2. The patient has been on premarin for 3 years related to UTI's she feels much better. 03-15-24 She noted a fullness under her left arm about 6 weeks ago. This was after she had covid. It has not changed in size since then. She is unsure as to how long that has been present. Bilateral mammogram on 03-08-24 BIRAD 2 but a lesion noted in the axilla also seen on ultrasound which is 13 by 7.4 by 4.5 cm in size. Core biopsy of the left breast no cancer in the past, no recent trauma or infection in the breast. 04-13-14 Patient noted a fullness under her left arm which was further evaluated. Bilateral mammogram on 03-08-24 BIRAD 2 but a lesion noted in the axilla also seen on ultrasound which is 13 by 7.4 by 4.5 cm in size. core biopsy of the left axilla chest wall lesion on 04-04-24 suggestive of lipoma She continues to feel unsteady on her feet. She has seen Dr. Buchanan but this is still being evaluated. Caffeine: none smoke: none Theophylline: Several times a month/patient is diabetic Hormone: none Milk: Patient drinks several glasses a day no hormones or supplements Family History: adopted does not know family history Hormonal History: menarche: 12 , 1 , age at first : 25, breast fed: no Menopause: hysterectomy at 49 for fibroids took ovaries BCP: 4 years hormones: after hysterectomy for two years Surgical History: 1. Hysterectomy with bilateral salpingo-oophorectomy 2. Cholecystectomy 3. Right groin hernia 4. 5 eye surgeries 6. Tonsillectomy 7. two C sections 8. right parotid resection Medical History: 1. diabetic diet controlled 2. UTI's stopped 3. asthma 4. had COVID December 09 5. bilateral numbness in her feet and losing her balance Social History: smoke: none alcohol: rare drugs: none - Constitutional Constitutional: Denies chills, Denies fever - EENT Eyes: denies blurred vision, denies pain Ears: left: tinnitus, deny: decreased hearing Ears, nose, mouth and throat: Denies headache, Denies sore throat - Breasts Breasts: bilateral: as per HPI - Cardiovascular Cardiovascular: Reports high blood pressure, Denies chest pain, Denies shortness of breath - Respiratory Respiratory: Denies cough, asthma - Gastrointestinal Comment: PUD Gastrointestinal: Denies abdominal pain, Denies diarrhea, Denies nausea, Denies vomiting - Genitourinary (Female) Comment: frequant UTI - Menstruation Menstruation: Reports post hysterectomy - Musculoskeletal Comment: arthritis Musculoskeletal: Denies myalgias - Integumentary Integumentary: Denies pruritus, Denies rash - Neurological Neurological: Denies numbness, Denies weakness - Psychiatric Psychiatric: Reports depression, Denies anxiety - Endocrine Comment: diabetes - Hematologic/Lymphatic Comment: none - Allergic/Immunologic Allergic/Immunologic: Reports as per HPI, Reports seasonal allergies Objective - Vital Signs Vital signs: Vital Signs Temp 98.5 F 04/13/24 09:59 Pulse 101 H 04/13/24 09:59 Resp 18 04/13/24 09:59 BP 170/91 04/13/24 09:59 Pulse Ox 96 04/13/24 09:59 FiO2 Intake & Output 10/17/24 10/18/24 10/18/24 18:59 06:59 18:59 Weight 110.223 kg - Constitutional General appearance: Present: cooperative - EENT Eyes: Present: EOMI ENT: Present: hearing grossly normal - Neck Neck: Present: normal ROM - Respiratory Respiratory: bilateral: CTA - Cardiovascular Rhythm: regular Heart sounds: normal: S1, S2 - Integumentary Integumentary: Present: normal turgor - Musculoskeletal Musculoskeletal Comment(s): poor balance - Psychiatric Psychiatric: Present: A&O x's 3, appropriate affect, intact judgment & insight - Additional findings Additional findings: Breast Exam: BRA: 50B inspection: Bilateral grade 2/3 ptosis Palpation: Right breast: Multi-positional exam fibrocystic changes no dominant masses or nodules of concern Right axilla: No adenopathy of concern Left breast: Multiple positional exam fibrocystic changes, there is approximately a 13 x 7 cm area of fullness in the upper outer quadrant extending to the axilla of the left breast this appears to be consistent with a lipoma and is consistent with what is seen radiographically, last year there was noted to be some slight fullness on examination in this vicinity which was not felt to be worrisome Left axilla: No adenopathy of concern Assessment and Plan Assessment: Impression: Fibrocystic breast changes Known intraductal papilloma on core biopsy of the left breast in 2017 which is been followed conservatively Bilateral mammogram 03-08-24 BIRAD 2; but lesion noted left axilla/chest wall biopsy done probable lipoma Plan: excision lesion left chest wall/axilla Preoperative clearance Dr. Buchanan/consider neurology consult secondary to unsteady gait gait unsteady to follow with Dr. Buchanan CC: Dr. Buchanan
== END ==
LOC: WWCWWP 09:42
PROVIDERS: ATTEND Surgery

== ENCOUNTER 2024-04-24 08:36 | Day surgery (SDC) | payer MEDICARE ==
[2024-04-20 11:52] VITALS: BMI 36.9
[~2024-04-24 08:36] MED LIST: LIDOCAINE 1% (10MG/ML) FOR IV START INTRADERMA PRN; Pre Op ABX Message 1 EACH MISC MISCELLANE ONE; droPERidol 5 MG/2 ML VIAL IVP ONE
[2024-04-24 09:25] LABS: Glucose,Whole Blood 138 mg/dL (70-110)
[2024-04-24] MEDS: ONDANSETRON 4 MG/2 ML VIAL IVP ONE (09:26)
[2024-04-24] MEDS: HEPARIN SODIUM,PORCINE 5,000 UNIT/ML 1 ML VIAL SQ PRN (09:26)
[2024-04-24] MEDS: LACTATED RINGERS 1,000 ML IV SCH (09:26)
[2024-04-24] MEDS: IV FLUID CONTINUATION 1,000 ML IV ONE (09:27)
[2024-04-24] MEDS: ACETAMINOPHEN TAB 500 MG TAB PO PRN (09:27)
[2024-04-24] MEDS: MIDAZOLAM 2 MG/2 ML VIAL IV ONE (09:36)
[2024-04-24] MEDS ORDERED: CLINDAMYCIN 600 MG in DEXTROSE 5% IN WATER 50 ML IVPB STA (09:51)
[2024-04-24] MEDS ORDERED: PHENYLEPHRINE 10 MG/ML VIAL ONE (10:06)
[2024-04-24] MEDS ORDERED: fentaNYL (PF) 50 MCG/ML 2 ML AMP ONE (10:06)
[2024-04-24] MEDS ORDERED: PROPOFOL 10 MG/ML 20 ML VIAL IV ONE (10:06)
[2024-04-24] MEDS ORDERED: KETAMINE HCL IN 0.9 % NACL 50 MG/5 ML SYRINGE ONE (10:06)
[2024-04-24] MEDS ORDERED: LIDOCAINE 1% INJ 10MG/ML (20 ML MDV) ONE (10:06)
[2024-04-24] MEDS ORDERED: GLYCOPYRROLATE 0.2 MG/ML 2 ML VIAL ONE (10:06)
[2024-04-24] MEDS ORDERED: SUCCINYLCHOLINE CHLORIDE 200 MG/10 ML VIAL IV ONE (10:06)
[2024-04-24] MEDS: LIDOCAINE 1% INJ 10MG/ML (30 ML VIAL-PF) SQ ONE ×2 (10:47→11:17)
--- NOTE | 2024-04-24 11:12 | P.BCAON ---
Date of Procedure: 04/24/24 Preoperative Diagnosis: mass left axilla/chest wall Postoperative Diagnosis: same Procedure(s) Performed: Excision of soft tissue mass left chest wall/extending to the axilla Anesthesia: INGRID Surgeon: Janki Scruggs Estimated Blood Loss (ml): 10 IV fluids (ml): 400 Pathology: other (Soft tissue mass/probable lipoma left chest wall) Condition: stable Disposition: same day Indications for Procedure: Enlarging left chest wall soft tissue mass/core biopsy consistent with lipoma Operative Findings: Probable lipoma left chest wall Description of Procedure: The patient was brought to the operative suite and following induction of anesthesia the left chest wall and axilla were prepped and draped in a sterile fashion. An incision was made over the lesion which was approximately 15 cm in size. Dissection was performed through the skin and subcutaneous tissue to the lesion. There appeared to be a soft tissue lipoma at this site. This was easily removed and was 15 cm x 8 cm in size. The cavity was well irrigated. After assuring that hemostasis was attained titanium clips were placed as well as Surgicel in powder form. The deep tissues were closed using 3-0 Vicryl suture. The skin was closed using 4-0 Monocryl. Surgical glue was applied. Prior to closure a #10 KENDAL drain was placed. This was secured using a nylon suture. 10 cc of 1% lidocaine were used to anesthetize the area. The patient tolerated the procedure in stable condition. All instrument and sponge counts were correct at the end of the case. The specimen was painted for orientation.
[2024-04-24 11:36] VITALS: TEMP 97.4
[2024-04-24] MEDS: HYDROmorphone 0.5 MG/0.5 ML SYRINGE IVP PRN (12:10)
[2024-04-24 13:13] VITALS: BP 145/78; PULSE 73; RESP 16
== END 2024-04-24 13:52 | disposition home or self-care (01) ==
LOC: OR 08:36
PROVIDERS: ATTEND Surgery
DX: D17.1 Benign lipomatous neoplasm of skin and subcutaneous tissue of trunk (principal); I10 Essential (primary) hypertension; E11.9 Type 2 diabetes mellitus without complications; K21.9 Gastro-esophageal reflux disease without esophagitis; J45.909 Unspecified asthma, uncomplicated; E66.01 Morbid (severe) obesity due to excess calories; Z68.36 Body mass index [BMI] 36.0-36.9, adult; Z79.899 Other long term (current) drug therapy; Z87.440 Personal history of urinary (tract) infections; Z88.5 Allergy status to narcotic agent; Z88.8 Allergy status to other drugs, medicaments and biological substances; Z88.1 Allergy status to other antibiotic agents; Z91.041 Radiographic dye allergy status
CPT/HCPCS: 88304; 21552; J2250; J0330; J1644; J2405; J2003 ×2; J3010; J2704; J1171; J2371; J1596

== ENCOUNTER 2024-04-26 18:37 | Emergency (ER) | payer MEDICARE ==
[2024-04-26 18:45] VITALS: TEMP 98.6
--- NOTE | 2024-04-26 19:46 | ED ---
Recheck HPI - General Source: patient, RN notes reviewed Mode of arrival: wheelchair Limitations: no limitations - History of Present Illness MD Complaint: other Onset/Timin -: hour(s) Returns Today for: other Associated Symptoms: none <Bradley Austin - Last Filed: 04/26/24 19:43> <Antonio Mesa - Last Filed: 05/10/24 02:09> - General Chief Complaint: Recheck/Abnormal Lab/Rx Stated Complaint: post op issues/fluid coming out Time Seen by Provider: 04/26/24 18:54 - History of Present Illness Initial Comments: Quick note: This is a 69-year-old female presenting for postsurgical drainage issue x 5 hours. Patient endorses recently having surgery for lipoma removal via Dr. Helio Ho. Patient states a left chest tube/drain was placed in the incision site on Tuesday when she began having diffuse drainage from her wound earlier today. Patient describes discharge as brownish with an odor. Patient states she was scheduled to have the tube removed tomorrow but endorses concern due to the amount of drainage from the incision site. (Bradley Austin) - Related Data Home Medications Medication Instructions Recorded Confirmed Omeprazole [PriLOSEC] 20 mg PO SUWEFR 12/06/16 04/27/24 Estrogens, Conjugated Cream 1 applicator VAGINAL MUNOZ 01/22/22 04/27/24 [Premarin Vaginal Cream] Losartan Potassium [Cozaar] 25 mg PO QAM 11/15/22 04/27/24 Mirtazapine 30 mg PO HS 11/15/22 04/27/24 Albuterol Inhaler [Ventolin Hfa 2 puff INHALATION TID PRN 01/27/23 04/27/24 Inhaler] Cholecalciferol (Vitamin D3) 10 mcg PO DAILY 01/27/23 04/27/24 [Vitamin D3 (125 MCG = 5,000 IU)] L.acidoph,Paracasei, B.lactis 1 each PO DAILY 01/27/23 04/27/24 [Probiotic] Cranberry Fruit Extract [Cranberry] 500 mg PO DAILY 04/20/24 04/27/24 Previous Rx's Medication Instructions Recorded oxyCODONE HCL [OxyIR] 5 mg PO Q6H PRN #5 tab 04/24/24 Allergies Allergy/AdvReac Type Severity Reaction Status Date / Time cephalexin monohydrate Allergy Severe Anaphylaxis, Verified 04/27/24 13:23 [From Keflex] Throat swelling erythromycin base Allergy Severe Anaphylaxis Verified 04/27/24 13:23 sulfamethoxazole Allergy Severe Anaphylaxis Verified 04/27/24 13:23 [From Septra] trimethoprim [From Septra] Allergy Severe Anaphylaxis Verified 04/27/24 13:23 adhesive Allergy ITCHING/RED Verified 04/27/24 13:23 DNESS morphine Allergy Nausea & Verified 04/27/24 13:23 Vomiting nystatin Allergy oral Verified 04/27/24 13:23 rinse-severe diarrhea codeine AdvReac Nausea & Verified 04/27/24 13:23 Vomiting ibuprofen [From Motrin] AdvReac Nausea & Verified 04/27/24 13:23 Vomiting Iodinated Contrast Media AdvReac Violently Verified 04/27/24 13:23 shaking afterwords Review of Systems ROS Other: All systems not noted in ROS Statement are negative. <Bradley Austin - Last Filed: 04/26/24 19:43> ROS Other: All systems not noted in ROS Statement are negative. <Antonio Mesa - Last Filed: 05/10/24 02:09> ROS Statement: Those systems with pertinent positive or pertinent negative responses have been documented in the HPI. 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 Diet controlled type 2 History of Any Multi-Drug Resistant Organisms: None Reported Past Surgical History: Section, Cholecystectomy, Hernia Repair, Hystere ctomy, Tonsillectomy Additional Past Surgical History / Comment(s): 7 EYE SX R/T TO MUSCLES, ELFEGO CATARACT, lypoma Past Anesthesia/Blood Transfusion Reactions: No Reported Reaction Past Psychological History: Depression Smoking Status: Never smoker - Past Family History Mother Family Medical History: Coronary Artery Disease (CAD), Myocardial Infarction (NM) Additional Family Medical History / Comment(s): at age 72 Father Family Medical History: Cancer, Coronary Artery Disease (CAD) Additional Family Medical History / Comment(s): possible colon CA- of malnutrition @ age 64 <Bradley Austin - Last Filed: 04/26/24 19:43> General Exam Limitations: no limitations <Bradley Austin - Last Filed: 04/26/24 19:43> Limitations: no limitations General appearance: alert, in no apparent distress Head exam: Present: atraumatic, normocephalic Eye exam: Present: normal appearance Neck exam: Present: normal inspection, full ROM Respiratory exam: Present: normal lung sounds bilaterally, other (The incision is intact. There is small amount of serosanguineous drainage. No purulent drainage. No abnormal erythema or warmth. There is 1 small area (<1cm) where the skin has sloughed related to the dressing). Absent: respiratory distress, wheezes, rales, rhonchi, stridor, chest wall tenderness, accessory muscle use Cardiovascular Exam: Present: regular rate, normal rhythm, normal heart sounds. Absent: systolic murmur, diastolic murmur, rubs, gallop GI/Abdominal exam: Present: soft. Absent: distended, tenderness, guarding, rebound, mass Neurological exam: Present: alert Skin exam: Present: warm, dry, intact, normal color. Absent: rash <Antonio Mesa - Last Filed: 05/10/24 02:09> - General Exam Comments Initial Comments: Visual Physical Exam Vital signs reviewed General: Well-appearing, nontoxic, no acute distress. Head: Normocephalic, atraumatic Eyes: PERRLA, EOMI ENT: Airway patent Chest: Nonlabored breathing Skin: No visual rash, normal skin tone. Incision site looks good with no indications of infection or discharge. Neuro: Alert and oriented 3 Musculoskeletal: No gross abnormalities (Bradley Austin) Course Vital Signs 04/26/24 04/26/24 04/27/24 18:39 23:13 00:37 Temperature 98.6 F Pulse Rate 107 H 85 75 Respiratory 20 18 18 Rate Blood Pressure 202/75 198/89 162/80 O2 Sat by Pulse 97 98 100 Oximetry Medical Decision Making <Bradley Austin - Last Filed: 04/26/24 19:43> - Lab Data Result diagrams: 04/26/24 22:00 04/26/24 22:23 <Antonio Mesa - Last Filed: 05/10/24 02:09> - Medical Decision Making I completed the quick note portion of this chart signed CORAZON Hook (Bradley Austin) Was pt. sent in by a medical professional or institution (Dr., PA, NAIL TECHNICIAN TEACHER, urgent care, hospital, or skilled nursing...) When possible be specific @ -[No] Did you speak to anyone other than the patient for history (EMS, parent, family, police, friend...)? What history was obtained from this source @ -[No] Did you review nursing and triage notes (agree or disagree)? Why? @ -[I reviewed and agree with nursing and triage notes] Were old charts reviewed (outside hosp., previous admission, EMS record, old EKG, old radiological studies, urgent care reports/EKG's, skilled nursing records)? Report findings @ -[No old charts were reviewed] Differential Diagnosis (chest pain, altered mental status, abdominal pain women, abdominal pain men, vaginal bleeding, weakness, fever, dyspnea, syncope, headache, dizziness, GI bleed, back pain, seizure, CVA, palpatations, mental health, musculoskeletal)? @ -[Differential diagnosis includes postsurgical bleeding, hematoma, seroma, bleeding diathesis, wound dehiscence, postsurgical infection, amongst other conditions EKG interpreted by me (3pts min.). @ -[As above] X-rays interpreted by me (1pt min.). @ -[None done] CT interpreted by me (1pt min.). @ -[None done] U/S interpreted by me (1pt. min.). @ -[None done] What testing was considered but not performed or refused? (CT, X-rays, U/S, labs)? Why? @ -[None] What meds were considered but not given or refused? Why? @ -[None] Did you discuss the management of the patient with other professionals (professionals i.e. , PA, NAIL TECHNICIAN TEACHER, lab, RT, psych nurse, social studies teacher, oil spot washer, teacher, unemployment insurance hearing officer, manager case)? Give summary @ -[No] Was smoking cessation discussed for >3mins.? @ -[No] Was critical care preformed (if so, how long)? @ -[No] Were there social determinants of health that impacted care today? How? (Homelessness, low income, unemployed, alcoholism, drug addiction, transportation, low edu. Level, literacy, decrease access to med. care, mcc, rehab)? @ -[No] Was there de-escalation of care discussed even if they declined (Discuss DNR or withdrawal of care, Hospice)? DNR status @ -[No] What co-morbidities impacted this encounter? (DM, HTN, Smoking, COPD, CAD, Cancer, CVA, ARF, Chemo, Hep., AIDS, mental health diagnosis, sleep apnea, morbid obesity)? @ -[None] Was patient admitted / discharged? Hospital course, mention meds given and route, prescriptions, significant lab abnormalities, going to OR and other pe rtinent info. @ -[Patient is 69-year-old woman presenting with drainage from surgical wound. The history and physical exam are consistent with seroma/hematoma drainage. The rate of drainage has slowed and the patient does have already established follow-up with her surgeon today. Patient will be discharged to see her surgeon in clinic. No evidence of postsurgical infection at this time. Return parameters discussed and all questions answered Undiagnosed new problem with uncertain prognosis? @ -[No] Drug Therapy requiring intensive monitoring for toxicity (Heparin, Nitro, Insulin, Cardizem)? @ -[No] Were any procedures done? @ -[No] Diagnosis/symptom? @ -[Postsurgical seroma Acute, or Chronic, or Acute on Chronic? @ -[Acute Uncomplicated (without systemic symptoms) or Complicated (systemic symptoms)? @ -[Uncomplicated Side effects of treatment? @ -[No] Exacerbation, Progression, or Severe Exacerbation? @ -[No] Poses a threat to life or bodily function? How? (Chest pain, USA, NM, pneumonia, PE, COPD, DKA, ARF, appy, cholecystitis, CVA, Diverticulitis, Homicidal, Suicidal, threat to staff... and all critical care pts) @ -[No] (Antonio Mesa) - Lab Data Lab Results 04/26/24 04/26/24 Range/Units 22:00 22:23 WBC 9.4 (3.8-10.6) k/uL RBC 4.46 (3.80-5.40) m/uL Hgb 13.9 (11.4-16.0) gm/dL Hct 42.0 (34.0-46.0) % MCV 94.0 (80.0-100.0) fL MCH 31.1 (25.0-35.0) pg MCHC 33.1 (31.0-37.0) g/dL RDW 13.6 (11.5-15.5) % Plt Count 159 (150-450) k/uL MPV 8.2 Neutrophils % 73 % Lymphocytes % 20 % Monocytes % 5 % Eosinophils % 1 % Basophils % 1 % Neutrophils # 6.8 (1.3-7.7) k/uL Lymphocytes # 1.8 (1.0-4.8) k/uL Monocytes # 0.4 (0-1.0) k/uL Eosinophils # 0.1 (0-0.7) k/uL Basophils # 0.0 (0-0.2) k/uL Sodium 137 (137-145) mmol/L Potassium 4.3 (3.5-5.1) mmol/L Chloride 108 H (98-107) mmol/L Carbon Dioxide 22 (22-30) mmol/L Anion Gap 7 mmol/L BUN 21 H (7-17) mg/dL Creatinine 0.81 (0.52-1.04) mg/dL Est GFR (CKD-EPI)AfAm 86 (>60 ml/min/1.73 sqM) Est GFR (CKD-EPI)NonAf 75 (>60 ml/min/1.73 sqM) Glucose 116 H (74-99) mg/dL Calcium 9.1 (8.4-10.2) mg/dL Total Bilirubin 0.5 (0.2-1.3) mg/dL AST 36 (14-36) U/L ALT 25 (4-34) U/L Alkaline Phosphatase 75 (38-126) U/L C-Reactive Protein 1.60 H (0.00-0.80) mg/dL Total Protein 6.8 (6.3-8.2) g/dL Albumin 4.1 (3.5-5.0) g/dL Disposition <Bradley Austin - Last Filed: 04/26/24 19:43> Is patient prescribed a controlled substance at d/c from ED?: No <Antonio Mesa - Last Filed: 05/10/24 02:09> Clinical Impression: Seroma after procedure Disposition: HOME SELF-CARE Condition: Good Instructions (If sedation given, give patient instructions): Seroma (DC) Referrals: Lux Buchanan MD [Primary Care Provider] - 1-2 days Janki Scruggs MD [STAFF PHYSICIAN] - 1-2 days
[2024-04-26 22:30] LABS: Basophils % (A) 1 %; Eosinophils # (A) 0.1 k/uL (0-0.7); Eosinophils % (A) 1 %; HGB 13.9 gm/dL (11.4-16.0); Lymphocytes # (A) 1.8 k/uL (1.0-4.8); Lymphocytes % (A) 20 %; MCH 31.1 pg (25.0-35.0); MCHC 33.1 g/dL (31.0-37.0); Mean Platelet Volume 8.2; Monocytes # (A) 0.4 k/uL (0-1.0); Monocytes % (A) 5 %; Neutrophils # (A) 6.8 k/uL (1.3-7.7); Neutrophils % (A) 73 %; Platelet Count 159 k/uL (150-450); RBC 4.46 m/uL (3.80-5.40); RDW 13.6 % (11.5-15.5); WBC 9.4 k/uL (3.8-10.6)
[2024-04-26 22:43] LABS: ALT 25 U/L (4-34); AST 36 U/L (14-36); African American GFR (CKD) 86 (>60 ml/min/1.73 sqM); Albumin 4.1 g/dL (3.5-5.0); Alkaline Phosphatase 75 U/L (38-126); Anion Gap 7 mmol/L; Blood Urea Nitrogen 21 mg/dL (7-17); Calcium 9.1 mg/dL (8.4-10.2); Carbon Dioxide 22 mmol/L (22-30); Chloride 108 mmol/L (98-107); Glucose 116 mg/dL (74-99); Non-African American GFR(CKD) 75 (>60 ml/min/1.73 sqM); Potassium 4.3 mmol/L (3.5-5.1); Sodium 137 mmol/L (137-145); Total Bilirubin 0.5 mg/dL (0.2-1.3); Total Protein 6.8 g/dL (6.3-8.2)
[2024-04-26 23:14] VITALS: RESP 18
[2024-04-27 00:37] VITALS: BP 162/80; PULSE 75
== END 2024-04-27 00:37 | disposition home or self-care (01) ==
LOC: EC 18:37
DX: L76.34 Postprocedural seroma of skin and subcutaneous tissue following other procedure (principal); Z88.5 Allergy status to narcotic agent; Z88.6 Allergy status to analgesic agent; Z88.2 Allergy status to sulfonamides; Z88.1 Allergy status to other antibiotic agents; Z91.041 Radiographic dye allergy status
CPT/HCPCS: 36415; 80053; 85025; 86140; 99283

== ENCOUNTER → 2024-04-27 | Outpatient (CLI) | payer MEDICARE ==
[2024-04-27 13:26] VITALS: BP 153/95; PULSE 58; RESP 17; TEMP 97.4
--- NOTE | 2024-04-27 13:36 | P.BCPO ---
Progress Note - Text Progress Note Date: 04/27/24 Floresita is status post resection of lipoma from the left axilla on 04-19-24. Pathology consistent with a lipoma with fat necrosis. She states her drain stopped working yesterday and she had some drainage from the drain site onto her chest wall. Today the drain started working but is only putting out minimal. Examination: Lungs: Clear Heart: Regular rate and rhythm Incision: Clean and dry KENDAL drain minimal drainage Plan: DC KENDAL drain Follow-up in 2 weeks Patient may shower Patient will follow-up sooner any questions or concerns
== END ==
LOC: WWCWWP 12:29
PROVIDERS: ATTEND Surgery
DX: N64.1 Fat necrosis of breast (principal); D17.22 Benign lipomatous neoplasm of skin and subcutaneous tissue of left arm; Z98.890 Other specified postprocedural states; Z88.5 Allergy status to narcotic agent; Z88.8 Allergy status to other drugs, medicaments and biological substances; Z91.048 Other nonmedicinal substance allergy status; Z88.2 Allergy status to sulfonamides; Z88.6 Allergy status to analgesic agent; Z91.041 Radiographic dye allergy status; Z88.1 Allergy status to other antibiotic agents

== ENCOUNTER → 2024-05-08 | Outpatient (CLI) | payer MEDICARE ==
--- NOTE | 2024-05-08 16:28 | MR ---
INDICATION: Patient age:Female; 69 years old; Reason for study: R26.89 OTHER ABN OF GAIT AND MOBILITY; [facility]. COMPARISON: MRI brain 04/18/2023. TECHNIQUE: Multi planar, multi sequence imaging was performed through the brain without administratio n of intravenous contrast. Patient refused contrast. FINDINGS: The carrion-white junctions, ventricular system, basal cisterns appear unremarkable. Age-appropriate mil d cerebral volume loss. Diffusion-weighted imaging shows no evidence of restricted diffusion to sugge st acute/subacute infarct. Intracranial arterial flow voids are maintained. Midline structures show n o abnormality. Few stable T2/FLAIR hyperintense foci within the subcortical and periventricular white matter of the bilateral frontal lobes.. The susceptibility weighted images do not reveal any evidenc e for micro-hemorrhage. After administration of gadolinium, no abnormal enhancement is seen. The bone marrow signal is within normal limits. The paranasal sinuses are unremarkable. Bilateral ap hakia. IMPRESSION: 1. No evidence of intracranial mass, acute/subacute infarct, or abnormal enhancement. 2. Few stable bilateral frontal lobe nonspecific white matter changes, likely related to small vessel ischemic disease versus other etiology such as migraines. [facility], , 05/08/2024 4:26 PM
== END | disposition home or self-care (01) ==
LOC: RADMRIMAIN 15:40
PROVIDERS: ATTEND Family Medicine
DX: R26.89 Other abnormalities of gait and mobility (principal); R90.82 White matter disease, unspecified
CPT/HCPCS: 70551

== ENCOUNTER → 2024-10-10 | Outpatient (CLI) | payer MEDICARE ==
--- NOTE | 2024-10-10 15:19 | USB ---
Reason for Exam: Clinical finding. Patient History: Menarche at age 12. First Full-Term at age 26. Left ovary removed at age 43. Right ovary removed at age 43. Hysterectomy at age 43. Postmenopausal. Estrogen for 3 years from age 43 until age 46. Progesterone for 3 years from age 43 until age 46. 04/04/2024, Benign US biopsy breast VAD LT on the left side. 04/18/2007, Excisional Biopsy on the Left side. 12/09/2016, High risk Core Biopsy on the left side. Risk Values: Ankita 5 year model risk: 2.9%. NCI Lifetime model risk: 8.7%. Technique: Method: Targeted. Doppler: Color. Patient Position: Supine. Prior Study Comparison: 01/18/2022 Bilateral MG 3D screening mammo w/cad, [facility]. 01/24/2023 Bilateral MG 3D screening mammo w/cad, [facility]. 03/08/2024 Bilateral MG 3D screening mammo w/cad, [facility]. Findings: The area of palpable concern of the left breast and the axilla of the left breast were scanned. Ultrasound within the left subclavicular region demonstrates ill-defined hypoechoic area with mixed echogenicity measuring 3 x 1 cm. This could reflect postoperative change. Residual lipoma is also a possibility. Consider further evaluation with CT and/or MRI. Overall Assessment: Probably benign, BI-RAD 3 Management: Diagnostic Breast Ultrasound of the left breast in 6 months. A clinical breast exam by your physician is recommended on an annual basis and results should be correlated with mammographic findings. This exam should not preclude additional follow-up of suspicious palpable abnormalities. Results were given to the patient verbally at the time of exam. [facility], , 10/10/2024 3:15 PM. Electronically signed and approved by: Marcus Tolbert M.D. Radiologis
== END | disposition home or self-care (01) ==
LOC: RADUSWWP 14:20
PROVIDERS: ATTEND Family Medicine
DX: D17.1 Benign lipomatous neoplasm of skin and subcutaneous tissue of trunk (principal); Z78.0 Asymptomatic menopausal state